=== PATIENT | female | born 1945 | race Caucasian/White ===

== ENCOUNTER 2020-06-28 13:44 | Inpatient (IN) | payer MEDICARE, MEDICAID, SELFPAY ==
[2020-06-28 13:45] VITALS: BP 123/47; PULSE 79; RESP 18; TEMP 35.4; O2SAT 100
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
--- NOTE | 2020-06-28 15:35 | CMSCP_ITS ---
- If Service Date Differs Date of service: 06/28/20 Time of Service: 15:36 Swingbed Plan of Care Plan of care: SWING BED PROGRAM ACTIVITIES/DISCHARGE PLAN OF CARE ACTIVITIES PLAN Date:06/28/20 Identified Need:Individual activities Intervention/Plan:Activity Cart, reading materials, television, phone and one support visitor. Rekie, music and pet therapy are not available at this time due to COVID precautions Initials [facility] DISCHARGE PLAN Date:06/28/20 Identified Need:IV abx for MSSA end date 07/09/20 PT/OT recent right AKA Return to [facility] Intervention/Plan: IV abx ordered PT/OT to eval, establish goals and plan Upon completion of abx return to [facility] Initials [facility]
--- NOTE | 2020-06-28 16:20 | CM.SBPSYCH ---
- If Service Date Differs Date of service: 06/28/20 Time of Service: 16:20 SB Psychosocial/Act.Assessment - Hospital Admission Admission Date: 06/28/20 Admission From:: [facility] [place] Diagnosis:: MSSA, R AKA - Swing Bed Admission Swing Bed Admit Date:: 06/28/20 Swing Bed Level of Care: Level 1/SNF - Social Supports PREVIOUS FUNCTIONAL STATUS/SOCIAL/FAMILY SUPPORTS:: Sunshine lives at [facility], she is , she has two daughters Yennifer, and Rachel that live local. - Prior to Admission Living Arrangements/Environment Prior to Admission:: Sunshine has been at [facility] since May, she does have an apartment however she states she is giving that up and does not plan to return to it. 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 Communication:: Able to articulate her needs. She does have hearing aids that are not with her will need to request them from her daughters. Sensory Systems: Hearing and sight deficit. Behavior:: affect flat, does smile occasionally, states she feels that she is just here and I am not living. Cm reviewed goals of care and palliative care consult which patient agrees to. - Medical History General Health:: fair - Admission Data Reason for Swing Bed Admission:: Recent R AKA, MSSA infection. IV abx until 07/09/20 unable to receive at prior level of care. Discharge Plan:: Sunshine will remain at [facility] for her IV abx. Completion date 07/09/20. She will plan to return to [facility] at the completion. She will have a palliaitve care consult while inpatient. Assessment: Sunshine is alert, she states she wants both of her daughters to be able visit like she had at [facility]. She states if they cant then she will have neither. Sunshine describes her life as not living she states she is afraid she will not ever be able to do the things she did in the past including play Bingo. She has four grandchildren that she is able to see via tablet and facetime. Sunshine is pleasant, engaged most of the time with periods of disengagement. Sunshine will have a palliative consult on , CM did contact the office no confirmed time. CM will need to contact family. [employer] Machinist: Alejandra Lopez Date Assessment was completed:: 06/28/20
[2020-06-28] MEDS: Normal Saline Flush 10 ML SYR ×2 (17:25→18:24)
[2020-06-28] MEDS: Acetaminophen 325 MG TAB 650 MG PO (17:26)
[2020-06-28] MEDS: Normal Saline 500 ML 30 ML IV (17:28)
[2020-06-28] MEDS: ceFAZolin 1 GM/50 ML BAG IVPB (17:28)
[2020-06-28] MEDS: Ibuprofen 400 MG TAB PO (18:23)
[2020-06-28] MEDS: Atorvastatin 40 MG TAB PO (19:34)
[2020-06-28] MEDS: Apixaban 5 MG TAB PO (19:35)
[2020-06-28] MEDS: Melatonin 3 MG TAB 6 MG PO (21:33)
[2020-06-28] MEDS: traZODone 50 MG TAB PO (21:33)
[2020-06-28] MEDS: dilTIAZem CD 120 MG CAPCR 240 MG PO (21:33)
[2020-06-28 21:38] VITALS: BP 124/76; PULSE 98; RESP 18; O2SAT 98
--- NOTE | 2020-06-29 | DI.RAD_ITS ---
EXAM: XR TOE LT GREAT CLINICAL HISTORY: lesion, ? osteo. TECHNIQUE: 2D digital imaging was performed. COMPARISON: No exams were available for comparison FINDINGS: Exam is limited by overlying gauze. No gross destructive bony lesion is seen of the great toe. The 2nd toe is partially visualized and there is a an intra-articular fracture at the base of the proxima l phalanx which is comminuted. No additional fractures are seen. No dislocation. IMPRESSION: Limited exam. Comminuted fracture at the base of the proximal phalanx of 2nd toe. DATA REPOSITORY: RADIATION DOSE DELIVERED:
[2020-06-29] MEDS: Acetaminophen 500 MG TAB 1000 MG PO ×2 (00:24→06:45)
[2020-06-29] MEDS: Ibuprofen 400 MG TAB PO ×3 (00:25→12:23)
[2020-06-29] MEDS: ceFAZolin 1 GM/50 ML BAG IVPB ×2 (02:11→09:57)
[2020-06-29 06:41] LABS: Abs Immature Grans 0.12 10^3/uL (0.0-0.06); Absolute Basophil Count 0.03 10^3/uL (0.0-0.2); Absolute Eosinophil Count 0.27 10^3/uL (0.0-0.7); Absolute Monocyte Count 0.54 10^3/uL (0.1-0.8); Absolute Neutrophil Count 5.22 10^3/uL (1.2-6.7); Basophils % 0.4; Eosinophils % 3.9; HCT 27.3 % (36.0-46.0); HGB 8.5 g/dL (11.2-15.7); Immature Grans % 1.7; Lymphocytes % 10.2; MCH 28.9 pg (27.0-33.0); MCHC 31.1 % (32.0-36.0); MCV 92.9 fL (80-95); MPV 8.5 fL (8.0-11.0); Monocytes % 7.8; Platelet Count 322 10^3/uL (130-400); RBC 2.94 10^6/uL (3.93-5.22); RDW 17.3 % (11.7-14.6); RDW-SD 57.3 fL; WBC 6.88 10^3/uL (4.4-10.8)
[2020-06-29] MEDS: Levothyroxine 25 MCG TAB PO (06:44)
[2020-06-29 06:56] LABS: Anisocytosis 2+; Basophilic Stippling Present; Hypochromasia 1+; Macrocytosis 1+; Microcytosis 1+; Polychromasia Present
[2020-06-29 06:57] LABS: AST 10 U/L (15-37); Albumin 2.5 g/dL (3.4-5.0); Alkaline Phosphatase 90 U/L (46-116); Anion Gap 9.6 mmol/L (3-11); BUN 34 mg/dL (7-18); Bilirubin, Total 0.3 mg/dL (0.2-1.0); C-Reactive Protein 5.82 mg/dL (0.0-0.3); CO2 28.4 mmol/L (21.0-32.0); CREATININE 1.11 mg/dL (0.55-1.02); Calcium 9.2 mg/dL (8.5-10.1); Chloride 100 mmol/L (98-107); Estimated GFR 47.79 (mL/min/1.73m2); Glucose 106 mg/dL (74-106); Potassium 3.3 mmol/L (3.5-5.1); Sodium 138 mmol/L (136-145); Total Protein 6.2 g/dL (6.4-8.2)
[2020-06-29 06:58] LABS: ALT < 6 U/L (14-59)
[2020-06-29 07:11] VITALS: BP 124/71; PULSE 74; RESP 17; TEMP 36; O2SAT 100
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
[2020-06-29] MEDS: Tiotropium Bromide-Respimat 10 PUFF INH 2 PUFF IH (07:55)
[2020-06-29] MEDS: Allopurinol 100 MG TAB PO (08:57)
[2020-06-29] MEDS: Beta-Carotene(A) w/C,E, & Minerals TAB PO (08:57)
[2020-06-29] MEDS: Clopidogrel 75 MG TAB PO (08:58)
[2020-06-29] MEDS: Apixaban 5 MG TAB PO ×2 (08:58→20:24)
[2020-06-29] MEDS: Torsemide 20 MG TAB 40 MG PO (08:58)
[2020-06-29] MEDS: Metoprolol CR 100 MG TABCR 200 MG PO (08:58)
[2020-06-29] MEDS: Pantoprazole 20 MG TABCR PO (08:58)
[2020-06-29] MEDS: Loratidine 10 MG TAB PO (08:58)
[2020-06-29] MEDS: DULoxetine 30 MG CAP 60 MG PO (08:58)
[2020-06-29] MEDS: Polyethylene Glycol 3350 17 GM PACKET PO (08:59)
[2020-06-29] MEDS: Normal Saline Flush 10 ML SYR ×2 (08:59→12:24)
[2020-06-29 09:00] VITALS: PULSE 74
[2020-06-29] MEDS: Digoxin 0.125 MG TAB 0.0625 MG PO (09:00)
[2020-06-29] MEDS: Fluticasone NASAL SPRAY 16 GM BTL NS (09:17)
--- NOTE | 2020-06-29 09:35 | IN_ITS ---
Date of service: 06/29/20 Time of Service: 09:35 PT Notes Visit Reasons: MSSA INFECTION Physical Therapy Inpatient Initial Evaluation Date: 06/29/2020 Referring Doctor: Beth Fulton NP PT Orders: PT CONSULT: Eval/treat Precautions: Fall. Standard. Activity as tolerated. Patient Profile/Admitting Diagnosis: Sunshine is a 75-year-old female with diagnoses of above-knee amputation of right LE on 06/19/2020 due to failed multiple att empts at revascularization, MSSA Bacteremia on IV Cefazolin until July 09, 2020 via PICC line, Congestive Heart Failure with 61% EF, Acute on Chronic Anemia, Type II Diabetes Mellitus, Peripheral Arterial Disease, and open wound on left great toe. Referral to skilled therapy services was made to address ongoing functional mobility limitations. PMHX: Medical History (Updated 06/29/20 @ 16:10 by Penny Calhoun MD) Abnormal auditory perception (Inactive 10/25/13) Abnormal auditory perception (Inactive 11/06/15) Acute on chronic anemia (Acute) Atrial fibrillation (Chronic) CHF (congestive heart failure) (Chronic) Depression (Chronic) Diabetes mellitus type 2 in nonobese (Acute) DNI (do not intubate) (Acute) DNR (do not resuscitate) (Acute) Goals of care, counseling/discussion (Acute) Hx-TIA (transient ischemic attack) (Acute) MSSA bacteremia (Acute) Obesity with body mass index 30 or greater (Inactive 10/25/13) Obstructive sleep apnea (adult) (pediatric) (Inactive 10/25/13) PAD (peripheral artery disease) (Acute) Palliative care patient (Acute) POLST (Physician Orders for Life-Sustaining Treatment) (Acute) Pulmonary edema (Resolved) Sensorineural hearing loss, bilateral (Resolved 11/06/15) Sensorineural hearing loss, bilateral (Inactive 10/11/13) Sensory hearing loss, bilateral (Inactive 10/25/13) Surgical History Above knee amputation of right lower extremity (Acute ~05/2020) Social History/Home Situation: Patient had been a resident of [facility] since October 2019. She was ambulatory with the use of a front wheeled walker. Equipment Owned/DME: FWW Subjective: Patient complains of significant amount of pain in her low back area with movement. Daughter states that her mother fell last year and has old compression fractures which have given her pain since. She reported phantom limb pain in the right leg twice during transfer activity. She states that she did not do much after her surgery at [facility]. Objective: General Observation: R AKA residual limb somewhat cylindrical in shape covered with Kerlix gauze. PICC line in right arm. Open area on the dorsum of the left great toe. Left equinovarus deformity. Abdominal panniculus. Mental Status: Alert and oriented x 4. Hears better in the L ear. Pain: 6-7/10 in low back area with movement ROM: Right Upper Extremity: Shoulder Flexion WFL. Shoulder abduction WFL. Elbow flexion WFL. Wrist flexion WFL. Opening and closing of hand WFL. Left Upper Extremity: Shoulder Flexion WFL. Shoulder abduction WFL. Elbow flexion WFL. Wrist flexion WFL. Opening and closing of hand WFL. Right Lower Extremity: Hip flexion WFL. Hip abduction WFL. Left Lower Extremity: Hip flexion WFL. Hip abduction WFL. Knee flexion WFL. Knee extension -15 degrees. Ankle dorsiflexion 20 degrees from fully plantarflexed position. Ankle myostatic plantarflexion contracture of about 45 degrees. Strength: Right Upper Extremity: Shoulder flexors 4-/5. Shoulder abductors 4-/5. Elbow flexors 4-/5. Elbow extensors 4-/5. Range Scientist strong. Left Upper Extremity: Shoulder flexors 4-/5. Shoulder abductors 4-/5. Elbow fle xors 4-/5. Elbow extensors 4-/5. Range Scientist strong. Right Lower Extremity: Hip flexors 4-/5. Hip abductors 4-/5. Knee flexors 4-/5. Left Lower Extremity: Hip flexors 4-/5. Hip abductors 4-/5. Knee flexors 4-/5. Knee extensors 3-/5. Ankle dorsiflexors /5. Ankle plantarflexors 5/5. Sensation: Intact as to pain and pressure on bilateral lower extremities. Bed Mobility/Transfers: Supine to sit moderate assist Sit to supine minimal assist of 2 Sit to stand maximal assist of 2 Stand to sit maximal assist of 2 Bed to chair maximal assist of 2, stand pivot transfer. Chair to bed maximal assist of 2, stand pivot transfer Gait: Non-ambulatory. L Residual limb length from R ASIS: 32 cm Balance: Static Sitting: Good Dynamic Sitting: Fair Static Standing: Poor Dynamic Standing: Poor Special Tests: Mobility Limitations Standardized Measure [facility] AM-PAC 6 clicks Basic Mobility Inpatient Short Form: Raw Score: 8 CMS Score: 87% deficit Informed Consent/Education: Patient instructed in purpose of PT consult and plan of care. Assessment: Sunshine demonstrates significant functional mobility decline, generalized weakness, ambulatory dysfunction, balance impairment, and activity tolerance resulting from admitting diagnoses. 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 Referral to skilled therapy services was made to address ongoing functional mobility limitations. Patient presents with clinical signs and symptoms consistent with current/admitting diagnoses that have resulted to mobility limitations, gait instability, generalized weakness, and impairment of motor control as demonstrated by the following impairment level findings: 1. Decreased strength to B UE/LE major muscle groups 2. Impaired sitting/standing balance 3. Impaired activity tolerance 4. Limitation of joint range of motion in left ankle and left knee Impairments are contributing to the following functional limitations: 1. Dependent bed mobility skills 2. Increased dependence with transfers 3. Inability to safely ambulate without assistive device and physical assistance 4. Increase completion time for mobility ADL performance 5. Increased fall risk 6. Inability to negotiate steps alone safely Patient is assessed as a 57541 high complexity based on the following: History: 75-year-old female with impairment level findings, functional limitations, and past medical history as indicated above Examination: Demonstrable impairment in strength, balance, and mobility level with underlying impairments and functional limitations as documented above Presentation:Evolving Decision Makin high complexity Goals: Goals X1 week 1. Supine-Sit minimal assist 2. Sit-Supine minimal assist 3. Sit-Stand minimal assist of 2 4. Stand-Sit minimal assist of 2 5. Bed-Chair minimal assist of 2 6. Chair-Bed mod assist of 2 7. Minimal assist of 2 for gait on level surface with use of least restrictive device for at least 300 feet without report of pain nor dyspnea 8. Minimal assist of 2 for stair negotiation while holding onto bilateral rails for at least 10 steps without report of pain nor dyspnea 9. Minimal assist of 2 with home exercise program 10. Good static and dynamic standing balance/tolerance Plan of Care/Treatment Plan: 1-2x/day, 7 days/week x 1 week. Plan of care has been reviewed with the PRESALES ENGINEER providing the service under Physical Therapy direction. Initiate Physical Therapy intervention for strengthening, bed mobility, transfers, gait, stairs, balance training, use of assistive device. DISCHARGE RECOMMENDATIONS: Patient will benefit from snf facility placement for continued skilled physical therapy services in order to progress mobility level, strength, and balance as well as to ensure preprosthetic training and R residual limb reshaping. TREATMENT CODE/TIME: 04463 x 25 minutes, 62750 x 25 minutes beginning at 9:35 AM. Thank you for the opportunity to participate in the care of this patient. Sandhya Holloway PT, DPT, CLT [facility] [place], [place]
--- NOTE | 2020-06-29 10:54 | OTIE_ITS ---
Occupational Therapy Notes Inpatient Occupational Therapy SWB 1 Evaluation Date: 06/29/20 Referring Doctor:Beth Fulton NP OT Orders: Non-Urgent Precautions: Fall, standard, FULL PATIENT PROFILE/ADMITTING DIAGNOSIS: Pt is a 75 year female who has transitioned to [facility] for [facility] bed 1 rehabilitative care for a dx of MSSA and (R) AKA, CHF, Chronic anemia, DM II, A-fib, PAD and a chief c/o infection and s/p amputation. Past Medical History- Medical History Abnormal auditory perception (Inactive 10/25/13) Abnormal auditory perception (Inactive 11/06/15) Acute on chronic anemia (Acute) Atrial fibrillation (Chronic) CHF (congestive heart failure) (Chronic) Diabetes mellitus type 2 in nonobese (Acute) MSSA bacteremia (Acute) Obesity with body mass index 30 or greater (Inactive 10/25/13) Obstructive sleep apnea (adult) (pediatric) (Inactive 10/25/13) PAD (peripheral artery disease) (Acute) Pulmonary edema (Resolved) Sensorineural hearing loss, bilateral (Resolved 11/06/15) Sensorineural hearing loss, bilateral (Inactive 10/11/13) Sensory hearing loss, bilateral (Inactive 10/25/13) Surgical History Above knee amputation of right lower extremity (Acute ~05/2020) Social History/Home Situation: Pt has been residing at [facility] since May. She states that she gets (A) with dressing, bathing and grooming. She performs her bathing sitting in a chair with max (A) set up and clean up. She has all DME mets at her facility. She uses a FWW for functional mobility as well as transfers prior to (R) AKA. She has two daughters. She does not feel that returning to her apartment in [place] is a realistic goal and states this to OT at start of session. Equipment owned/DME: Resides at [facility] since May all DME met at [facility] SUBJECTIVE: Pt was sitting in chair when OT arrived. She was agreeable to OT session and notes that she is in a lot of pain in her low back and extremely tired after working with PT. She states that her goals are not to live on her own and does not feel that this is going to happen. She would like to return to [facility]. Her personal goals for OT is to be able to complete her ADLs/IADLs in the sitting position as (I) as possible. OBJECTIVE: General Observation: Pleasant, able to answer questions appropriately, IV (R) UE, (R) AKA jagdish in place with bandage getting replaced d/t falling off with PT. Mental Status: A&Ox3 Pain: 7-8/10 pain in lower back ROM: RUE AROM WFL L UE AROM WFL STRENGTH: RUE 4/5 throughout globally LUE 4/5 throughout globally *Pt is (R) hand dominant. FUNCTIONAL MOBILITY/ADLS: Transfers with FWW prior to amputation. Has tried slide board twice and reports that this does not go well. BATHING Pt denies Bathing UE Required min (A) with washing hair and denies all other Bathing. Pt does have AROM required for bathing routine. Bathing LE Denied DRESSING Sitting in chair Dressing UE denies Dressing LE (I) able to don and doff (L) sock and shoe with increased performance time. GROOMING Sitting in chair (I) with brushing hair with min (A) behind head due to back pain. TOILETING NT pt reports that she is currently utilizing a bed pain EATING NT pt does have AROM required to bring hand to mouth. BALANCE: Static sitting Fair due to pain Dynamic Sitting Poor-fair Static Standing Poor per pt report Dynamic Standing Poor per pt report SPECIAL TESTS: Daily Activity Limitations Standardized Measure [facility] AM -PAC ?6 clicks? Daily Activity Inpatient Short Form: Raw score: 16 Standardized score: 35.96 CMS score:53.32% INFORMED CONSENT/EDUCATION: Pt instructed in purpose of OT Consult and plan of care. ASSESSMENT: Patient is a 75-year-old female referred to occupational therapy services with diagnosis of MSSA, (R) AKA and is admitted to [facility] for [facility] 1 level of care. Patient presents with clinical signs and symptoms consistent with dx, as demonstrated by the following impairment level findings: Pain in low back limiting static and dynamic functional mobility, decreased functional mobility required for ADLs, decreased functional acitivity tolerance, pain in (R) AKA wound site, decreased ability to perform her baseline function for ADL/IADL requirements. Impairments are contributing to the following functional limitations: Unable to perform standing ADLs at this time, decreased functional activity tolerance, decreased gross motor control of (L) LE, fatigue post 5 minutes of functional mobility, decreased standing tolerance, decreased LE dressing including pants. AMPAC score 16 Patient is assessed as a high 54769 complexity based on the following: History: See above Examination: see functional limitations as noted above Presentation: evolving Decision Making: AMPAC score 16 GOALS Goals x1 week 1. Transfers with FWW with Min (A) 2. Dressing sitting in chair (I) shirt, sock, shoe, Min (A) pants 3. Bathing sitting in chair with max (A) set/clean up (I) 4. Toileting on commode (I) 5. Eating (I) PLAN OF CARE/TREATMENT PLAN: 1x/day, 5 days/ week x 1week Initiate Occupational Therapy Services for bathing, dressing, grooming, toileting, eating, transfer training. DISCHARGE RECOMMENDATIONS Return to [facility] when medically cleared per MD. TREATMENT TIME/MINUTES/CODES 44244, 30 minutes (10:30) Yue Lala OTR/[facility]
[2020-06-29] MEDS: Insulin Aspart 300 UNITS/3 ML PEN SC (12:24)
--- NOTE | 2020-06-29 12:35 | PHACLINREV_ITS ---
Pharmacy Admission Review - Admission Clinical Review (Last Reviewed 06/29/20 @ 07:49 by Wayne Feliciano DPM) MSSA bacteremia (Acute) PAD (peripheral artery disease) (Acute) Diabetes mellitus type 2 in nonobese (Acute) Above knee amputation of right lower extremity (Acute ~05/2020) Acute on chronic anemia (Acute) No Known Allergies Allergy (Unverified 01/05/18 08:20) Height 5 ft 2 in Weight 68.4 kg - Renal Dosing Renal Dosing: BUN 34 mg/dL (7-18) H 06/29/20 06:05 Creatinine 1.11 mg/dL (0.55-1.02) H 06/29/20 06:05 Medications needing adjustments: Reviewed (CrCl ~34.1, current meds okay (watch cefazolin dose)) - Anticoagulation Anticoagulation: Hgb 8.5 g/dL (11.2-15.7) L 06/29/20 06:05 Hct 27.3 % (36.0-46.0) L 06/29/20 06:05 Plt Count 322 10^3/uL (130-400) 06/29/20 06:05 Creatinine 1.11 mg/dL (0.55-1.02) H 06/29/20 06:05 DVT Prohphylaxis: N/A Therapeutic Anticoagulation: Reviewed Medications: Apixaban - Opiate Usage Evaluate Pain Scale/Pains Meds: N/A - Relevant Labs Sodium 138 mmol/L (136-145) 06/29/20 06:05 Potassium 3.3 mmol/L (3.5-5.1) L 06/29/20 06:05 Chloride 100 mmol/L (98-107) 06/29/20 06:05 C-Reactive Protein 5.82 mg/dL (0.0-0.3) H 06/29/20 06:05 Electrolytes, C-Reactive P, ESR: Reviewed (CRP elevated at 5.82, K 3.3, Hgb decreased at 8.5) - DM Control DM Control: Glucose 106 mg/dL (74-106) 06/29/20 06:05 Finger Stick Blood Glucose 172 Finger Stick Blood Glucose 172 Finger Stick Blood Glucose 131 Finger Stick Blood Glucose 131 Insulin Dosing: Reviewed (Glucose was slightly elevated at 131, is currently on insulin aspart. Per MD her glucose has been well controlled on insulin aspart at [facility]) - Heart Failure/MO EF%, ELVA's, B-Blockers, Diuretics: Reviewed (Currently on torsemide and digoxin) - BP Control BP Control: Blood Pressure 124/71 If elevated: Reviewed (BP has been within normal range) - Qtc Review If Elevated: N/A (No EKG labs) - IV to PO Switch IV Medications: Reviewed (IV cefazolin) - Home Meds Home Med List reviewed: Reviewed Relevent Home Meds Not ordered & why?: Ocuvite with lutein - Current meds Current Medication Order Review: Reviewed (Watch cefazolin dose, recommended frequency for CrCl 11-34 is Q12H, she is currently on Q8H. MD aware) - Comments Comments/Follow Ups: Monitor K, CRP, Hgb (has hx of needing blood transfusions due to anemia), monitor kidney function (cefazolin, some drug interactions that can cause nephrotoxicity, if CrCl decreases below 30 watch for duloxetine as well (contraindicated if CrCL <30)), monitor bleeding due to multiple drug interactions that can increase bleed risk.
[2020-06-29] MEDS: Acetaminophen 325 MG TAB 650 MG PO (12:53)
--- NOTE | 2020-06-29 14:44 | CHAPLAIN ---
Sunshine is from [facility] and told me she arrived here from [facility]. She was interested in getting the on the tv working. I had trouble and asked Manager Switch to help out. I explained my role to Sunshine and offered support.
[2020-06-29] MEDS: Lidocaine 5% Patch 2 PATCH TP (15:05)
--- NOTE | 2020-06-29 15:31 | PTTR_ITS ---
Date of service: 06/29/20 Time of Service: 13:10 PT Notes Visit Reasons: MSSA INFECTION Inpatient Physical Therapy Treatment Note [facility] Date: 06/29/2020 SUBJECTIVE: My back hurts. OBJECTIVE: [] PAIN: c/o LBP as well as phantom pain in right LE. BED MOBILITY/TRANSFERS Rolling L/R: CGA Supine-sit: max A x2 Sit-supine: Max A x2 Sit-stand: Max A x3 Stand-sit: Max A x2 Chair-bed: Max A x3, pivot transfer GAIT Assistive Device: DRIVER WHEELCHAIR Weight bearing: WB L Assist:Max A x3 Distance: pivot xfer THEREX: performed a global LE/ UE strength and core stabilization, see flowsheet. ASSESSMENT: follows directions well. She is nervous about falling and tends to resist, however does well when instructed every step of the way. She has increased phantom pain with WBing. She tends to forget that her right leg amputated and not able to assist. Increased LBP with any mvmt/ transfers/ bed mobility, however does well if she engages her core before she moves. PLAN: will continue to progress her global strength and functional mobility following PT POC. TREATMENT CODE/TIME:30 min in pm, [id number], [id number].
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
--- NOTE | 2020-06-29 16:18 | DI.VRAD_ITS ---
PROCEDURE INFORMATION: Exam: XR Left Toe(s) Exam date and time: 06/29/2020 3:59 PM Age: 75 years old Clinical indication: Other: Lesion, osteo ? TECHNIQUE: Imaging protocol: XR Left toes. Views: Minimum 2 views. COMPARISON: No relevant prior studies available. FINDINGS: Bones/joints: Fracture at the base of the proximal phalanx of the 2nd digit with extension to the articular surface. The fracture is comminuted. Soft tissues: Soft tissue edema in the big toe. IMPRESSION: Soft tissue edema in the big toe. Fracture at the base of the proximal phalanx of the 2nd digit with extension to the articular surface. The fracture is comminuted. Dictated and Authenticated by: Lemuel Flores MD. Ordering:ANCELMO Campos MD
[2020-06-29] MEDS: Potassium Chloride 20 MEQ TABCR 40 MEQ PO (17:07)
[2020-06-29] MEDS: oxyCODONE 5 MG TAB PO (18:20)
[2020-06-29] MEDS: Normal Saline 500 ML 30 ML IV (18:20)
[2020-06-29] MEDS: ceFAZolin 2 GM/50 ML BAG IVPB (18:21)
--- NOTE | 2020-06-29 19:38 | DI.RAD_ITS ---
EXAM: XR PORTABLE CHEST AP POST LINE CLINICAL HISTORY: picc positioning TECHNIQUE: 2D digital imaging was performed. COMPARISON: No exams were available for comparison FINDINGS: The exam was performed is semi a erect position. PICC line is seen entering from the right arm. The tip projects in the superior vena cava. The heart is enlarged. There is calcification at the aorti c arch. There are fibrotic changes in the upper lobes. No focal area of consolidation or effusion i s seen. IMPRESSION: Appropriate positioning of PICC line. DATA REPOSITORY: RADIATION DOSE DELIVERED:
--- NOTE | 2020-06-29 19:51 | DI.VRAD_ITS ---
PROCEDURE INFORMATION: Exam: XR Chest, 1 View Exam date and time: 06/29/2020 7:39 PM Age: 75 years old Clinical indication: Device placement; Picc; Additional info: Picc not working, ? picc positioning TECHNIQUE: Imaging protocol: XR of the chest Views: 1 view. COMPARISON: No relevant prior studies available. FINDINGS: Tubes, catheters and devices: Right PICC line ends in the SVC. Lungs: Unremarkable. No consolidation. Pleural space: Unremarkable. No pleural effusion. No pneumothorax. Heart/Mediastinum: Unremarkable. No cardiomegaly. Vasculature: Atherosclerosis. Bones/joints: Unremarkable. IMPRESSION: Right PICC line ends in the SVC. Dictated and Authenticated by: Lemuel Flores MD. Ordering:[facility] Virginia De Dios MD
[2020-06-29] MEDS: Alteplase 2 MG VIAL IJ (20:16)
[2020-06-29] MEDS: Nystatin POWDER 15 GM JAR TP (20:20)
[2020-06-29] MEDS: Atorvastatin 40 MG TAB PO (20:24)
[2020-06-29] MEDS: Water,Injection,Sterile 10 ML VIAL (20:27)
[2020-06-29] MEDS: Normal Saline Flush 10 ML SYR IVP ×2 (20:29→23:08)
[2020-06-29 21:12] LABS: Magnesium 1.7 mg/dL (1.8-2.4)
[2020-06-29 21:55] VITALS: BP 148/80; PULSE 83; RESP 18; TEMP 36; O2SAT 98
[2020-06-29] MEDS: dilTIAZem CD 120 MG CAPCR 240 MG PO (21:57)
[2020-06-29] MEDS: traZODone 50 MG TAB PO (21:58)
[2020-06-29] MEDS: Melatonin 3 MG TAB 6 MG PO (21:58)
[2020-06-30] MEDS: Levothyroxine 25 MCG TAB PO (06:20)
[2020-06-30] MEDS: oxyCODONE 5 MG TAB PO ×2 (06:20→14:08)
[2020-06-30] MEDS: ceFAZolin 2 GM/50 ML BAG IVPB ×3 (06:21→22:00)
[2020-06-30 07:07] LABS: Anion Gap 9.3 mmol/L (3-11); BUN 36 mg/dL (7-18); CO2 28.7 mmol/L (21.0-32.0); Calcium 9.1 mg/dL (8.5-10.1); Chloride 101 mmol/L (98-107); Estimated GFR 48.29 (mL/min/1.73m2); Glucose 134 mg/dL (74-106); Potassium 3.9 mmol/L (3.5-5.1); Sodium 139 mmol/L (136-145)
[2020-06-30] MEDS: Tiotropium Bromide-Respimat 10 PUFF INH 2 PUFF IH (07:56)
--- NOTE | 2020-06-30 07:58 | PDOC.CMPRO ---
- If Service Date Differs Date of service: 06/30/20 Time of Service: 07:58 Care Management Progress Note S/O: Sunshine remains in swing bed level 1 she was delivered peñaloza today from her niece which made her smile. consulted on her left great toe which appears to have a wound and has made care recommendations. A:Sunshine is a 75 year old female who has been living at [facility], admitted to [facility], now with a right AKA, and here at [facility] for treatment for MSSA antibiotics, and PT, OT P:Sunshine will return to [facility] at the completion of her IV abx. She will continue to receive PT and OT throughout her stay. CM to coordinate discharge needs and return to [facility] when medically ready.
[2020-06-30] MEDS: Fluticasone NASAL SPRAY 16 GM BTL NS (08:16)
[2020-06-30] MEDS: Polyethylene Glycol 3350 17 GM PACKET PO (08:17)
[2020-06-30] MEDS: Nystatin POWDER 15 GM JAR TP ×2 (08:17→19:46)
[2020-06-30] MEDS: Insulin Aspart 300 UNITS/3 ML PEN SC ×2 (08:17→11:58)
[2020-06-30] MEDS: DULoxetine 30 MG CAP 60 MG PO (08:18)
[2020-06-30 08:19] VITALS: PULSE 70
[2020-06-30] MEDS: Clopidogrel 75 MG TAB PO (08:19)
[2020-06-30] MEDS: Torsemide 20 MG TAB 40 MG PO (08:19)
[2020-06-30] MEDS: Loratidine 10 MG TAB PO (08:19)
[2020-06-30] MEDS: Digoxin 0.125 MG TAB 0.0625 MG PO (08:19)
[2020-06-30] MEDS: Allopurinol 100 MG TAB PO (08:19)
[2020-06-30] MEDS: Pantoprazole 20 MG TABCR PO (08:19)
[2020-06-30] MEDS: Beta-Carotene(A) w/C,E, & Minerals TAB PO (08:19)
[2020-06-30] MEDS: Apixaban 5 MG TAB PO ×2 (08:19→19:37)
[2020-06-30] MEDS: Potassium Chloride 20 MEQ TABCR PO (08:19)
--- NOTE | 2020-06-30 08:19 | OT.INTREAT ---
Date of service: 06/30/20 Time of Service: 07:10 Occupational Therapy Notes Occupational Therapy Inpatient Treatment Note Date: 06/30/20 PRECAUTIONS: Fall, Standard, DNR/DNI SUBJECTIVE: Pt was lying in bed when OT arrived. She states that she is in pain this morning all over her body. She states that she slept ok last night and is tired this morning. OBJECTIVE: PAIN:8/10 pain all over body specifically in low back. FUNCTIONAL MOBILITY Rolling L/R: Min (A) BATHING: Lying in bed with max (A) set up and clean up Upper Body/Lower Body: (I) face, (B) UE, min (A) abdomen, max (A) (L) LE and foot, min (A) washing hair DRESSING: Lying in bed Upper Extremity: Min (A) don and doffing hospital gown Lower Extremity: (I) doffing sock and min (A) donning sock with min vc throughout GROOMING: Pt was lying in bed and was able to brush her hair with min (A) TOILETING: Incontinent, utilizes bed silva at times. ASSESSMENT/PLAN: Pt was in pain during session in her low back and in her leg. She was able to demonstrate good ROM and performance of ADLs/IADLs. She performed her ADLs in bed, goal is to get pt to edge of bed and then into chair for performance of her ADLs. She demonstrate good technique for rolling in bed with min (A). This functionally is helping her with functional (I) at this time. OT will continue to progress pt towards goals with ideal performance of ADLs in sitting position. TREATMENT CODES/TIME: [id number], 40 minutes (07:10) Yue Lala, OTR/L [facility]
[2020-06-30] MEDS: Metoprolol CR 100 MG TABCR 200 MG PO (08:21)
[2020-06-30] MEDS: diphenhydrAMINE 25 MG CAP PO (10:03)
[2020-06-30] MEDS: Ibuprofen 400 MG TAB PO ×2 (10:03→19:37)
[2020-06-30] MEDS: Acetaminophen 325 MG TAB 650 MG PO ×2 (10:03→19:35)
--- NOTE | 2020-06-30 11:36 | W.INDIABCONS ---
Date of service: 06/30/20 Time of Service: 11:36 Diabetes Inpatient Consult DESCRIPTION/ASSESSMENT: Met with Sunshine today for inpatient diabetes counseling. Sunshine is 75 year old female admitted from SNF with hypomagnesemia, TIA, open wound to left great toe. Sunshine reports that care home staff manages her DM2. Most recent A1C: 8.4% (03/16/20) indicates poor diabetes control 90 days prior to lab reading. Blood sugars mostly <130 mg/dl since admit. Diabetes is diet controlled per Sunshine. Following low sodium diet with adequate intake (>75%). Currently meeting 100% nutrient and fluid needs by mouth. May need medications to maintain blood sugar control for optimal healing of left great tow. INTERVENTION: Did not provide diabetes education as diabetes managed by care home at this time. CDM will provide education daily when menu selected to keep meals at <65g CHO/meal. PLAN: Check A1C and adjust meds as needed for optimal glucose control Change diet to CHO/Low sodium diet CDM will provide education daily on how to best follow meal plan for consistent carbohydrate intake. Time Spent in Nutritional Counseling and Treatment: 15 min spent face to face
[2020-06-30] MEDS: Lidocaine 5% Patch 2 PATCH TP (14:08)
[2020-06-30] MEDS: Normal Saline Flush 10 ML SYR IVP ×2 (14:09→19:39)
--- NOTE | 2020-06-30 15:23 | PT.INTREAT ---
Date of service: 06/30/20 Time of Service: 15:00 PT Notes Visit Reasons: MSSA INFECTION Inpatient Physical Therapy Treatment Note [facility] Date: 06/30/2020 SUBJECTIVE: Sunshine reports that she is hurting all over. She c/o LBP and right stump pain. OBJECTIVE: [] PAIN: reports 10/10 pain in LB BED MOBILITY/TRANSFERS Rolling L/R: Akil Supine-sit: max A x2 slide board transfer bed to chair with Max A x2. in am and Anne Marie chair to bed in pm. THEREX: global strengthening of U/LE as well as glutes and core. See flowhseet for details. ASSESSMENT: increased pain in low back with mvmt. Cues for core engagement helps. Significant weakness noted. I did note a slight improvement in sitting balance today at EOB. She continues to require 2 assists for safety. PLAN: continue following PT POC progressing her strengthening to her tolerance. TREATMENT CODE/TIME: 30 min in am and 20 min in pm. [id number], [id number].
[2020-06-30 17:05] VITALS: BP 148/67; PULSE 76; RESP 20; TEMP 36.7; O2SAT 100
[2020-06-30] MEDS: Atorvastatin 40 MG TAB PO (19:37)
[2020-06-30] MEDS: Melatonin 3 MG TAB 6 MG PO (21:57)
[2020-06-30] MEDS: dilTIAZem CD 120 MG CAPCR 240 MG PO (21:58)
[2020-06-30] MEDS: traZODone 50 MG TAB PO (22:00)
[2020-07-01] MEDS: Normal Saline Flush 10 ML SYR IVP ×2 (05:26→22:05)
[2020-07-01] MEDS: Levothyroxine 25 MCG TAB PO (05:26)
[2020-07-01] MEDS: ceFAZolin 2 GM/50 ML BAG IVPB ×3 (05:26→22:04)
[2020-07-01 07:42] VITALS: BP 120/74; PULSE 93; RESP 18; TEMP 36.7; O2SAT 99
[2020-07-01] MEDS: Tiotropium Bromide-Respimat 10 PUFF INH 2 PUFF IH (08:13)
[2020-07-01 08:49] VITALS: PULSE 84
[2020-07-01] MEDS: Pantoprazole 20 MG TABCR PO (08:49)
[2020-07-01] MEDS: Clopidogrel 75 MG TAB PO (08:49)
[2020-07-01] MEDS: Digoxin 0.125 MG TAB 0.0625 MG PO (08:49)
[2020-07-01] MEDS: Potassium Chloride 20 MEQ TABCR PO (08:49)
[2020-07-01] MEDS: Beta-Carotene(A) w/C,E, & Minerals TAB PO (08:49)
[2020-07-01] MEDS: Apixaban 5 MG TAB PO ×2 (08:49→19:45)
[2020-07-01] MEDS: Loratidine 10 MG TAB PO (08:49)
[2020-07-01] MEDS: Ibuprofen 400 MG TAB PO ×2 (08:51→19:43)
[2020-07-01] MEDS: Allopurinol 100 MG TAB PO (08:51)
[2020-07-01] MEDS: Torsemide 20 MG TAB 40 MG PO (08:51)
[2020-07-01] MEDS: Metoprolol CR 100 MG TABCR 200 MG PO (08:51)
[2020-07-01] MEDS: DULoxetine 30 MG CAP 60 MG PO (08:51)
[2020-07-01] MEDS: Fluticasone NASAL SPRAY 16 GM BTL NS (08:52)
[2020-07-01] MEDS: Nystatin POWDER 15 GM JAR TP ×2 (08:52→19:44)
[2020-07-01] MEDS: diphenhydrAMINE 25 MG CAP PO (08:52)
[2020-07-01] MEDS: Acetaminophen 325 MG TAB 650 MG PO ×2 (08:52→19:43)
[2020-07-01] MEDS: Polyethylene Glycol 3350 17 GM PACKET PO (08:52)
[2020-07-01] MEDS: oxyCODONE 5 MG TAB PO ×2 (10:56→22:05)
[2020-07-01] MEDS: Insulin Aspart 300 UNITS/3 ML PEN SC ×2 (12:15→17:00)
--- NOTE | 2020-07-01 12:44 | PT.INTREAT ---
Date of service: 07/01/20 Time of Service: 09:30 PT Notes Visit Reasons: MSSA INFECTION Inpatient Physical Therapy Treatment Note [facility] Date: 07/01/2020 PRECAUTIONS:Fall, standard, activities as tolerated SUBJECTIVE: Frustrated with back pain and decreased function. OBJECTIVE: PAIN: Complained of back being very uncomfortable today. A little better with repositioning in recliners. BED MOBILITY/TRANSFERS Up in recliner with Anne Marie lift with nursing staff. THEREX: Performed bed exercises including ankle pumps, SLRs, SAQs, supine hip flexion and hip abd/ adduction with left LE for 10 to 20 reps each, see flow sheet for details.. UE shoulder horizontal abd/adduction, shoulder flexion to 90 degrees and rows for 10 reps each. Also, performed attempted trapeze pull ups x 8 minutes, but these were very weak. Worked on isometric bracing with each of these. Encouraging patient to utilize core stability with each activity. Attempted to try to work sitting balance while in chair but patient indicated her back was really bothering her today. Had to utilize pillow to proper up trunk on the right to avoid excessive leaning to the right while in recliner. ASSESSMENT: Tolerated ther exercises fair, performing increased reps today. Difficulty with seated balance activity due to back pain. PLAN: Continue to encourage mobility and hope to work on sitting balance more tomorrow. TREATMENT CODE/TIME: [id number], 9:30 to 10:00
[2020-07-01] MEDS: Lidocaine 5% Patch 2 PATCH TP (14:45)
[2020-07-01 15:57] VITALS: BP 147/78; PULSE 90; RESP 18; TEMP 36.8; O2SAT 100
[2020-07-01 19:00] VITALS: BP 129/75; PULSE 93; RESP 18; TEMP 35.7; O2SAT 100
[2020-07-01] MEDS: Atorvastatin 40 MG TAB PO (19:45)
[2020-07-01] MEDS: Melatonin 3 MG TAB 6 MG PO (22:04)
[2020-07-01] MEDS: traZODone 50 MG TAB PO (22:05)
[2020-07-01] MEDS: dilTIAZem CD 120 MG CAPCR 240 MG PO (22:05)
[2020-07-01] MEDS: Normal Saline 500 ML 30 ML IV (22:06)
[2020-07-02] MEDS: ceFAZolin 2 GM/50 ML BAG IVPB ×3 (06:24→21:54)
[2020-07-02] MEDS: Normal Saline Flush 10 ML SYR IVP ×2 (06:24→21:55)
[2020-07-02] MEDS: Levothyroxine 25 MCG TAB PO (06:25)
[2020-07-02] MEDS: Tiotropium Bromide-Respimat 10 PUFF INH 2 PUFF IH (07:42)
[2020-07-02 08:02] VITALS: BP 128/71; PULSE 70; RESP 16; TEMP 35.4; O2SAT 99
[2020-07-02] MEDS: Metoprolol CR 100 MG TABCR 200 MG PO (08:29)
[2020-07-02] MEDS: diphenhydrAMINE 25 MG CAP PO ×3 (08:29→22:35)
[2020-07-02] MEDS: DULoxetine 30 MG CAP 60 MG PO (08:29)
[2020-07-02] MEDS: Digoxin 0.125 MG TAB 0.0625 MG PO (08:30)
[2020-07-02] MEDS: Pantoprazole 20 MG TABCR PO (08:30)
[2020-07-02] MEDS: Apixaban 5 MG TAB PO ×2 (08:30→19:52)
[2020-07-02] MEDS: Clopidogrel 75 MG TAB PO (08:30)
[2020-07-02] MEDS: Allopurinol 100 MG TAB PO (08:30)
[2020-07-02] MEDS: Torsemide 20 MG TAB 40 MG PO (08:30)
[2020-07-02] MEDS: Loratidine 10 MG TAB PO (08:30)
[2020-07-02] MEDS: Beta-Carotene(A) w/C,E, & Minerals TAB PO (08:31)
[2020-07-02] MEDS: Potassium Chloride 20 MEQ TABCR PO (08:31)
[2020-07-02] MEDS: Fluticasone NASAL SPRAY 16 GM BTL NS (08:31)
[2020-07-02] MEDS: Nystatin POWDER 15 GM JAR TP ×2 (08:31→19:55)
[2020-07-02] MEDS: Polyethylene Glycol 3350 17 GM PACKET PO (08:32)
[2020-07-02] MEDS: Insulin Aspart 300 UNITS/3 ML PEN SC ×2 (08:33→12:23)
--- NOTE | 2020-07-02 08:35 | RESPIRATORY ---
Patient was asked about the TAMICA history in which is in her medical chart. Patient stated she used to have a machine but not longer uses one for a few years now.
[2020-07-02] MEDS: Acetaminophen 325 MG TAB 650 MG PO (09:48)
[2020-07-02] MEDS: Ibuprofen 400 MG TAB PO (09:51)
[2020-07-02] MEDS: oxyCODONE 5 MG TAB PO ×2 (10:35→21:55)
--- NOTE | 2020-07-02 10:36 | PT.INTREAT ---
Date of service: 07/02/20 Time of Service: 09:40 PT Notes Visit Reasons: MSSA INFECTION Inpatient Physical Therapy Treatment Note [facility] Date: 07/02/2020 PRECAUTIONS:Fall, standard, Activity as tolerated SUBJECTIVE: Stated she is continuing to experience a great deal of back pain. OBJECTIVE: PAIN: Back pain of 6 out of 10, meds help a little BED MOBILITY/TRANSFERS Rolling L/R: Assist of one Mod assist with sitting balance without support behind back. Patient finds this very uncomfortable due to back pain. Hoyered to recliner with myself and nursing staff. THEREX: Performed ankle pumps, SAQs, supine hip flexion, supine abd/adduction with left LE, bilateral UE shoulder flexion to 90 degrees, shoulder horizontal abd/adduction and rows/ elbow flexion extension with left only due to IV in right elbow crease. 1# dumbbell brought to patient's room to use with UE strengthening. ASSESSMENT: Tolerated today's PT session fair, but difficulty with seated balance activities due to back pain complaints. PLAN: Continue with current POC advancing activities as able to tolerate for improved ADL function. TREATMENT CODE/TIME: [id number], [id number], 9:40 to 10:05 and 10:35 to 10:10:40
[2020-07-02] MEDS: Lidocaine 5% Patch 2 PATCH TP (13:09)
--- NOTE | 2020-07-02 13:44 | CMPROGNOTE_ITS ---
- If Service Date Differs Date of service: 07/02/20 Time of Service: 13:45 Care Management Progress Note S/O: Sunshine remains in swing bed level 1. CM met with her at length r/t current stay including movement and participation with PT. CM reviewed concerns including risk for skin breakdown. Sunshine states pain is the reason she does not move well, she reports her back and amputation site hurt and worse over the last few days. She is concerned about her skin and states she does not want a pressur e sore to develop. CM reviewed pain management plan with the nurse and used the white board to request pain medication to be offered. CM will review with provider as well. She may benefit from scheduled pain management while she is healing. CM reviewed allergy with patient she states she is allergic to ativan and lidocaine both were added to her allergy list. A:Sunshine is a 75 year old female who has been living at [facility], admitted to [facility], now with a right AKA, and here at [facility] for treatment for MSSA antibiotics, and PT, OT P:Sunshine will return to [facility] at the completion of her IV abx. She will continue to receive PT and OT throughout her stay. CM to coordinate discharge needs and return to [facility] when medically ready.
[2020-07-02] MEDS: Atorvastatin 40 MG TAB PO (19:51)
[2020-07-02] MEDS: traZODone 50 MG TAB PO (21:54)
[2020-07-02] MEDS: Melatonin 3 MG TAB 6 MG PO (21:54)
[2020-07-02] MEDS: Mirtazapine 15 MG TAB PO (21:55)
[2020-07-02] MEDS: dilTIAZem CD 120 MG CAPCR 240 MG PO (21:55)
[2020-07-03] MEDS: Levothyroxine 25 MCG TAB PO (05:30)
[2020-07-03] MEDS: ceFAZolin 2 GM/50 ML BAG IVPB ×3 (05:31→21:42)
[2020-07-03] MEDS: Normal Saline 500 ML 30 ML IV (05:31)
[2020-07-03 06:42] LABS: Abs Immature Grans 0.07 10^3/uL (0.0-0.06); Absolute Basophil Count 0.02 10^3/uL (0.0-0.2); Absolute Eosinophil Count 0.29 10^3/uL (0.0-0.7); Absolute Lymphocyte Count 0.68 10^3/uL (1.2-3.4); Absolute Monocyte Count 0.56 10^3/uL (0.1-0.8); Absolute Neutrophil Count 3.95 10^3/uL (1.2-6.7); Basophils % 0.4; Eosinophils % 5.2; HCT 25.7 % (36.0-46.0); HGB 8.1 g/dL (11.2-15.7); Immature Grans % 1.3; Lymphocytes % 12.2; MCH 29.7 pg (27.0-33.0); MCHC 31.5 % (32.0-36.0); MCV 94.1 fL (80-95); MPV 8.4 fL (8.0-11.0); Monocytes % 10.1; Neutrophils % 70.8; Platelet Count 326 10^3/uL (130-400); RBC 2.73 10^6/uL (3.93-5.22); RDW 17.7 % (11.7-14.6); RDW-SD 59.8 fL; WBC 5.57 10^3/uL (4.4-10.8)
[2020-07-03 07:07] LABS: AST 11 U/L (15-37); Albumin 2.5 g/dL (3.4-5.0); Alkaline Phosphatase 94 U/L (46-116); Anion Gap 7.8 mmol/L (3-11); BUN 35 mg/dL (7-18); Bilirubin, Total 0.2 mg/dL (0.2-1.0); C-Reactive Protein 6.38 mg/dL (0.0-0.3); CO2 30.2 mmol/L (21.0-32.0); CREATININE 1.21 mg/dL (0.55-1.02); Calcium 9.1 mg/dL (8.5-10.1); Chloride 101 mmol/L (98-107); Estimated GFR 43.26 (mL/min/1.73m2); Glucose 118 mg/dL (74-106); Potassium 3.6 mmol/L (3.5-5.1); Sodium 139 mmol/L (136-145); TSH 4.53 uIU/mL (0.36-3.74); Total Protein 6.1 g/dL (6.4-8.2)
[2020-07-03 07:10] LABS: ALT < 6 U/L (14-59)
[2020-07-03 07:20] LABS: Vitamin D 25 Total 11.7 ng/ml (30-100)
[2020-07-03 07:30] VITALS: BP 123/62; PULSE 82; RESP 16; TEMP 36.2; O2SAT 98
[2020-07-03] MEDS: Tiotropium Bromide-Respimat 10 PUFF INH 2 PUFF IH (07:52)
[2020-07-03] MEDS: Acetaminophen 325 MG TAB 650 MG PO (07:54)
[2020-07-03] MEDS: Pantoprazole 20 MG TABCR PO (07:55)
[2020-07-03] MEDS: diphenhydrAMINE 25 MG CAP PO (07:55)
[2020-07-03] MEDS: Polyethylene Glycol 3350 17 GM PACKET PO (08:05)
[2020-07-03] MEDS: Nystatin POWDER 15 GM JAR TP ×2 (08:05→20:29)
[2020-07-03] MEDS: Fluticasone NASAL SPRAY 16 GM BTL NS (08:06)
[2020-07-03] MEDS: Digoxin 0.125 MG TAB 0.0625 MG PO (08:06)
[2020-07-03] MEDS: DULoxetine 30 MG CAP 60 MG PO (08:06)
[2020-07-03] MEDS: Potassium Chloride 20 MEQ TABCR PO (08:07)
[2020-07-03] MEDS: Torsemide 20 MG TAB 40 MG PO (08:07)
[2020-07-03] MEDS: Metoprolol CR 100 MG TABCR 200 MG PO (08:07)
[2020-07-03] MEDS: Loratidine 10 MG TAB PO (08:07)
[2020-07-03] MEDS: Apixaban 5 MG TAB PO ×2 (08:07→20:29)
[2020-07-03] MEDS: Allopurinol 100 MG TAB PO (08:07)
[2020-07-03] MEDS: Beta-Carotene(A) w/C,E, & Minerals TAB PO (08:07)
[2020-07-03] MEDS: Clopidogrel 75 MG TAB PO (08:08)
[2020-07-03] MEDS: oxyCODONE 5 MG TAB PO (08:37)
--- NOTE | 2020-07-03 08:38 | W.PM.PROGNOT ---
Date of Service Date of service: 07/03/20 Time of Service: 08:38 Subjective Subjective Patient reports: no new complaints Interval history since last seen: Spoke with Dr. Feliciano regarding broken digit, this is not a concern, she has neuralgia and it is not painful, this will not inhibit her balance or ability to ambulate, however it might be difficult for her to ambulate with her prosthetic due to balance and deconditioning. Objective Objective Clinical Data: Abnormal lab results 07/03/20 07/03/20 07/03/20 Range/Units 06:25 06:25 06:25 RBC 2.73 L (3.93-5.22) 10^6/uL Hgb 8.1 L (11.2-15.7) g/dL Hct 25.7 L (36.0-46.0) % MCHC 31.5 L (32.0-36.0) % RDW 17.7 H (11.7-14.6) % Absolute Lymphocytes 0.68 L (1.2-3.4) 10^3/uL BUN 35 H (7-18) mg/dL Creatinine 1.21 H (0.55-1.02) mg/dL Glucose 118 H (74-106) mg/dL AST 11 L (15-37) U/L ALT < 6 L (14-59) U/L C-Reactive Protein 6.38 H (0.0-0.3) mg/dL Total Protein 6.1 L (6.4-8.2) g/dL Albumin 2.5 L (3.4-5.0) g/dL 25-OH Vitamin D Total 11.7 L (30-100) ng/ml TSH 4.53 H (0.36-3.74) uIU/mL Vital Signs Temperature 36.2 C L 07/03/20 07:30 Temperature Source Tympanic 07/03/20 07:30 Pulse 82 07/03/20 07:30 Pulse Rhythm Regular 07/03/20 08:26 Respiratory Rate 16 07/03/20 07:30 Respiratory Effort Non-Labored 07/03/20 08:26 Respiratory Depth Normal 07/03/20 08:26 Respiratory Pattern Normal 07/03/20 08:26 Blood Pressure 123/62 07/03/20 07:30 Pulse Oximetry 98 07/03/20 07:30 Oxygen Delivery Method Room Air 07/03/20 07:30 Oxygen Flow Rate 0 07/03/20 07:30 Pain Level 6 07/03/20 08:37 Comment 07/01/20 19:00 Intake & Output 07/02/20 07/02/20 07/03/20 11:59 23:59 11:59 Intake Total 250 / 1370 1120 / 1370 250 / 250 Balance 250 / 1370 1120 / 1370 250 / 250 Weight 68.1 kg 69.4 kg Intake: IV 50 / 690 640 / 690 Oral 200 / 680 480 / 680 250 / 250 Other: Urine Color Yellow Urine Appearance Clear Clear Clear Urine Odor Normal Voiding Methods Diaper Diaper Diaper Incontinent Incontinent Incontinent Laboratory Results WBC 5.57 10^3/uL (4.4-10.8) 07/03/20 06:25 RBC 2.73 10^6/uL (3.93-5.22) L 07/03/20 06:25 Hgb 8.1 g/dL (11.2-15.7) L 07/03/20 06:25 Hct 25.7 % (36.0-46.0) L 07/03/20 06:25 MCV 94.1 fL (80-95) 07/03/20 06:25 MCH 29.7 pg (27.0-33.0) 07/03/20 06:25 MCHC 31.5 % (32.0-36.0) L 07/03/20 06:25 RDW 17.7 % (11.7-14.6) H 07/03/20 06:25 Plt Count 326 10^3/uL (130-400) 07/03/20 06:25 MPV 8.4 fL (8.0-11.0) 07/03/20 06:25 Immature Gran % 1.3 07/03/20 06:25 Neutrophils % 70.8 07/03/20 06:25 Lymphocytes % 12.2 07/03/20 06:25 Monocytes % 10.1 07/03/20 06:25 Eosinophils % 5.2 07/03/20 06:25 Basophils % 0.4 07/03/20 06:25 Absolute Neutrophils 3.95 10^3/uL (1.2-6.7) 07/03/20 06:25 Absolute Lymphocytes 0.68 10^3/uL (1.2-3.4) L 07/03/20 06:25 Absolute Monocytes 0.56 10^3/uL (0.1-0.8) 07/03/20 06:25 Absolute Eosinophils 0.29 10^3/uL (0.0-0.7) 07/03/20 06:25 Absolute Basophils 0.02 10^3/uL (0.0-0.2) 07/03/20 06:25 RBC Morphology See below 06/29/20 06:05 Polychromasia Present 06/29/20 06:05 Hypochromasia 1+ 06/29/20 06:05 Basophilic Stippling Present 06/29/20 06:05 Anisocytosis 2+ 06/29/20 06:05 Microcytosis 1+ 06/29/20 06:05 Macrocytosis 1+ 06/29/20 06:05 Sodium 139 mmol/L (136-145) 07/03/20 06:25 Potassium 3.6 mmol/L (3.5-5.1) 07/03/20 06:25 Chloride 101 mmol/L (98-107) 07/03/20 06:25 Carbon Dioxide 30.2 mmol/L (21.0-32.0) 07/03/20 06:25 Anion Gap 7.8 mmol/L (3-11) 07/03/20 06:25 BUN 35 mg/dL (7-18) H 07/03/20 06:25 Creatinine 1.21 mg/dL (0.55-1.02) H 07/03/20 06:25 Estimated GFR/1.73 m2 43.26 (mL/min/1.73m2) 07/03/20 06:25 Glucose 118 mg/dL (74-106) H 07/03/20 06:25 Calcium 9.1 mg/dL (8.5-10.1) 07/03/20 06:25 Magnesium Cancelled 06/29/20 16:00 Total Bilirubin 0.2 mg/dL (0.2-1.0) 07/03/20 06:25 AST 11 U/L (15-37) L 07/03/20 06:25 ALT < 6 U/L (14-59) L 07/03/20 06:25 Alkaline Phosphatase 94 U/L (46-116) 07/03/20 06:25 C-Reactive Protein 6.38 mg/dL (0.0-0.3) H 07/03/20 06:25 Total Protein 6.1 g/dL (6.4-8.2) L 07/03/20 06:25 Albumin 2.5 g/dL (3.4-5.0) L 07/03/20 06:25 25-OH Vitamin D Total 11.7 ng/ml (30-100) L 07/03/20 06:25 TSH 4.53 uIU/mL (0.36-3.74) H 07/03/20 06:25
[2020-07-03] MEDS: buPROPion 75 MG TAB PO ×2 (09:19→20:29)
--- NOTE | 2020-07-03 09:19 | OTTR_ITS ---
Date of service: 07/03/20 Time of Service: 08:55 Occupational Therapy Notes Occupational Therapy Inpatient Treatment Note Date: 07/03/20 PRECAUTIONS: Fall, Standard, DNR/DNI SUBJECTIVE: Pt states that she is in a great deal of pain. She reports that her back is hurting and she is not able to concentrate or eat. She is agreeable to OT session and notes that she would like to get her pain under better control. She was sitting in the chair when OT arrived. OBJECTIVE: PAIN: 10/10 pain in low back. BATHING: Sitting in chair with max (A) set up/clean up Upper Body: (I) washing face, mod (A) (B) UE, max (A) hair Lower Body: max (A) (L) LE DRESSING: Upper Extremity: Max (A) don and doffing hospital gown Lower Extremity: Max (A) don and doffing sock GROOMING: Min (A) brushing hair TOILETING: Incontinent with disposable underwear EATING: (I) ASSESSMENT/PLAN: Pt is in a great deal of pain rating a 10/10 at rest. This is being worked on per nursing and [employer] ESTIMATOR. She is receptive to education/training but is limited in her functional performance due to her pain. She is able to perform her bathing routine with (A). She states that she cannot take the pain in her back, and is unable to find a good position. TREATMENT CODES/TIME: [id number], 25 minutes (08:55) Yue Laal, OTR/L [facility]
[2020-07-03 09:29] LABS: FREE T4 1.01 ng/dL (0.76-1.46)
[2020-07-03] MEDS: Gabapentin 300 MG CAP PO ×2 (09:46→20:29)
[2020-07-03] MEDS: Ergocalciferol 50000 UNITS CAP PO (09:47)
--- NOTE | 2020-07-03 09:57 | PDOC.CMPRO ---
Care Management Progress Note Sunshine will return to [facility] at the completion of her IV ABX. She continues to work with PT, OT, and diabetic education at this time. She also has an active podiatry consult and met with Palliative Care as well. CM to coordinate discharge needs and return to [facility] when medically ready. Per MD: Dr. Calhoun met with: Sunshine and her daughter, Yennifer. Sunshine has not been able to live at home in her independent living apartment since October. Over the past 7 months, she spent 4 mos at [facility] and 3 mos at [facility]. She's been back and forth between [facility] and [facility]. She's frustrated with having to reset her goals so many times. Initially, her goal was to get home for [place]. 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 She is now at [facility] to complete another course of antibiotics. Vascuar surgery at [facility] is worried that the same problem is starting on her left leg. She and her daughter are worried, too.
[2020-07-03] MEDS: traMADol 50 MG TAB PO (10:52)
--- NOTE | 2020-07-03 11:00 | PT.INTREAT ---
Date of service: 07/03/20 PT Notes Visit Reasons: MSSA INFECTION Sunshine was agreeable to a session of right AKA residual limb wrapping this morning. JESSICA Wells was assisting and nurse Alexy was present in the room to watch the process. Patient received R AKA residual limb wrapping using one 6-inch wide ELVA wrap and two 4-inch wide ELVA wraps. A tubigrip was then placed to reinforce wrapping and add protection to residual limb. Education about the benefits of said wrapping in preventing limb swelling, minimizing pain, and shaping the limb in preparation for prosthesis use was done with patient as well. Thank you very much for the opportunity to participate in the care of this patient. Sandhya Holloway PT, DPT, CLT [facility] [place], [place]
[2020-07-03] MEDS: Insulin Aspart 300 UNITS/3 ML PEN SC ×2 (11:52→17:38)
--- NOTE | 2020-07-03 14:19 | PT.INTREAT ---
Date of service: 07/03/20 Time of Service: 14:00 PT Notes Visit Reasons: MSSA INFECTION Inpatient Physical Therapy Treatment Note [facility] Date: 07/03/2020 SUBJECTIVE: Sunshine continues to c/o increased LBP. I can't do anything because I hurt too much. OBJECTIVE: [] PAIN: Back pain. BED MOBILITY/TRANSFERS Rolling L/R: min A Bed-Chair: Anne Marie lift and 2 assists Chair-bed: anne marie and 2 assists I also assisted PT in wraping her AKA using aba wrap. Assisting Sunshine to roll, as well as lifting stump. THEREX: performed a global LE strength and stabilization routine. See flowsheet for specific ex details. I turned Sunshine on her left side and placed aqua K pack at back. ASSESSMENT: Sunshine trys to put in effort with her exercises, however her pain is out of control. Nurse received new orders for different pain meds, unfortunately this made Sunshine sleepy. She tried to participate in PT this pm, but kept falling asleep. She is most comfortable in bed. PLAN: continue progressing to tolerance. Would like to work on sitting balance activities tomorrow, if she is feeling better. TREATMENT CODE/TIME: 45 min in am and 15 min in pm. [id number], [id number].
[2020-07-03] MEDS: Diclofenac 1% Gel 100 GM TUBE TP ×2 (17:39→20:29)
[2020-07-03 20:23] VITALS: BP 101/59; PULSE 80; RESP 18; TEMP 36.9; O2SAT 95
[2020-07-03] MEDS: Atorvastatin 40 MG TAB PO (20:29)
[2020-07-03] MEDS: Melatonin 3 MG TAB 6 MG PO (21:41)
[2020-07-03] MEDS: Normal Saline Flush 10 ML SYR IVP ×2 (21:42→22:36)
[2020-07-03] MEDS: dilTIAZem CD 120 MG CAPCR 240 MG PO (21:42)
[2020-07-03] MEDS: traZODone 50 MG TAB PO (21:42)
[2020-07-04] MEDS: Normal Saline Flush 10 ML SYR IVP ×2 (05:56→21:33)
[2020-07-04] MEDS: Levothyroxine 25 MCG TAB PO (05:56)
[2020-07-04] MEDS: ceFAZolin 2 GM/50 ML BAG IVPB ×3 (05:56→21:34)
[2020-07-04] MEDS: Acetaminophen 325 MG TAB 650 MG PO ×2 (06:26→13:37)
[2020-07-04] MEDS: traMADol 50 MG TAB PO (07:30)
[2020-07-04] MEDS: Gabapentin 300 MG CAP PO ×2 (07:30→20:37)
[2020-07-04 07:34] VITALS: BP 123/75; PULSE 75; RESP 16; TEMP 35.7; O2SAT 99
[2020-07-04] MEDS: Tiotropium Bromide-Respimat 10 PUFF INH 2 PUFF IH (07:59)
--- NOTE | 2020-07-04 08:26 | OT.INTREAT ---
Date of service: 07/04/20 Time of Service: 07:20 Occupational Therapy Notes Occupational Therapy Inpatient Treatment Note Date: 07/04/20 PRECAUTIONS: Fall, Standard, DNR/DNI SUBJECTIVE: Pt states that she is in a 10/10 pain in her back and in the lower portion of her (R) leg which is due to phantom limb pain. She is feeling shooting pains throughout her (R) leg and is unable to perform any functional movements of her LEs at this time due to her discomfort. Pt states that she is agreeable to OT session and feels that today will be a limited day. OBJECTIVE: PAIN:10/10 pain in low back and (R) LE BATHING: Lying in bed with max (A) set up and clean up Upper Body: (I) face, (B) UE, min (A) underarms, min (A) abdomen Lower Body: Max (A) (L) LE DRESSING: lying in bed Upper Extremity: Max (A) don and doffing hospital gown due to pain Lower Extremity: max (A) don and doffing (L) sock ASSESSMENT/PLAN: Pt is limited by pain and phantom limb discomfort. She has a 10/10 pain in her (R) LE and into her low back. She was receptive and attempted to be an active participant in todays session but pain was limiting to her. TREATMENT CODES/TIME: [id number], 25 minutes (07:20) Yue Lala, OTR/L [facility]
[2020-07-04] MEDS: Fluticasone NASAL SPRAY 16 GM BTL NS (08:58)
[2020-07-04] MEDS: Polyethylene Glycol 3350 17 GM PACKET PO (09:00)
[2020-07-04] MEDS: Diclofenac 1% Gel 100 GM TUBE TP ×4 (09:02→20:41)
[2020-07-04] MEDS: Insulin Aspart 300 UNITS/3 ML PEN SC ×3 (09:02→17:03)
[2020-07-04] MEDS: Nystatin POWDER 15 GM JAR TP ×2 (09:02→20:42)
[2020-07-04] MEDS: Torsemide 20 MG TAB 40 MG PO (09:03)
[2020-07-04] MEDS: Metoprolol CR 100 MG TABCR 200 MG PO (09:03)
[2020-07-04 09:04] VITALS: PULSE 75
[2020-07-04] MEDS: Potassium Chloride 20 MEQ TABCR PO (09:04)
[2020-07-04] MEDS: Clopidogrel 75 MG TAB PO (09:04)
[2020-07-04] MEDS: Beta-Carotene(A) w/C,E, & Minerals TAB PO (09:04)
[2020-07-04] MEDS: Digoxin 0.125 MG TAB 0.0625 MG PO (09:04)
[2020-07-04] MEDS: Loratidine 10 MG TAB PO (09:04)
[2020-07-04] MEDS: Allopurinol 100 MG TAB PO (09:04)
[2020-07-04] MEDS: Apixaban 5 MG TAB PO ×2 (09:05→20:38)
[2020-07-04] MEDS: Pantoprazole 20 MG TABCR PO (09:05)
[2020-07-04] MEDS: DULoxetine 30 MG CAP 60 MG PO (09:22)
[2020-07-04] MEDS: buPROPion 75 MG TAB PO (09:22)
--- NOTE | 2020-07-04 10:32 | PTTR_ITS ---
Date of service: 07/04/20 Time of Service: 10:32 PT Notes Visit Reasons: MSSA INFECTION Inpatient Physical Therapy Treatment Note [facility] Date: 07/04/2020 PRECAUTIONS: Fall SUBJECTIVE: Sunshine states that she has significant back pain this morning, but is willing to participate in PT. OBJECTIVE: Patient declines transfer from [id number], due to pain. PAIN: Patient c/o back pain BED MOBILITY/TRANSFERS: Declined in a.m.; attempted slide-board transfer with assist of 2. Patient required Max A for set up. Patient was unable to perform transfer due to decreased UE strength and increased LBP. Rolling L/R: Min A GAIT: Unable THEREX: Patient completed a LE strengthening and resisted UE strengthening program, in a long-sitting position, as per flow sheet. She was able to tolera te a progression in her ther ex program today, tolerating an increase in repetitions, as noted on flow sheet. ASSESSMENT: Patient tolerated session well without c/o increased back pain with ther ex. He was able to tolerate a progression in ther ex program. PLAN: Continue with PT's POC TREATMENT CODE/TIME: Session 1: 15 minutes; [id number] Session 2: 25 minutes; [id number], [id number]
--- NOTE | 2020-07-04 10:55 | W.PM.PROGNOT ---
Date of Service Date of service: 07/04/20 Time of Service: 10:55 Assessment and Plan Assessment and plan (1) Lethargy: Status: Acute Assessment and plan: Multiple co-morbidities that could play into the etiology. Did start Trazadone and Wellbutrin this admission. Will d/c both. Monitor. Subjective Subjective Interval history since last seen: Patient c/o being tired. Some concerns by staff of confusion. She has noted to have intermittent jerking movement of arms; she states this has been a long-standing occurence. Exam Const General: cooperative Nutritional Appearance: overweight Orientation: alert, oriented to person and oriented to place Resp Effort & Inspection: normal respiratory effort Auscultation: clear to auscultation bilaterally Cardio Rate: regular rate Rhythm: regular rhythm Heart Sounds: S1 normal and S2 normal Neuro General: patient alert and moves all extremities Speech: speech normal Motor: muscle tone normal throughout Objective Objective Clinical Data: Vital Signs Temperature 35.7 C L 07/04/20 07:34 Temperature Source Tympanic 07/04/20 07:34 Pulse 75 07/04/20 09:04 Pulse Rhythm Regular 07/04/20 09:46 Respiratory Rate 16 07/04/20 07:34 Respiratory Effort Non-Labored 07/04/20 09:46 Respiratory Depth Normal 07/04/20 09:46 Respiratory Pattern Normal 07/04/20 09:46 Blood Pressure 123/75 07/04/20 07:34 Pulse Oximetry 99 07/04/20 07:34 Oxygen Delivery Method Room Air 07/04/20 07:34 Oxygen Flow Rate 0 07/04/20 07:34 Pain Level 3 07/04/20 08:30 Comment 07/01/20 19:00 Intake & Output 07/03/20 07/03/20 07/04/20 11:59 23:59 11:59 Intake Total 780 / 1740 960 / 1740 530 / 530 Balance 780 / 1740 960 / 1740 530 / 530 Weight 69.4 kg 69.2 kg Intake: IV 50 / 670 620 / 670 50 / 50 Oral 730 / 1070 340 / 1070 480 / 480 Other: Urine Color Yellow Urine Appearance Clear Clear Clear Urine Odor Normal Comment pt dry at this time Voiding Methods Diaper Diaper Diaper Incontinent Incontinent Incontinent Laboratory Results WBC 5.57 10^3/uL (4.4-10.8) 07/03/20 06:25 RBC 2.73 10^6/uL (3.93-5.22) L 07/03/20 06:25 Hgb 8.1 g/dL (11.2-15.7) L 07/03/20 06:25 Hct 25.7 % (36.0-46.0) L 07/03/20 06:25 MCV 94.1 fL (80-95) 07/03/20 06:25 MCH 29.7 pg (27.0-33.0) 07/03/20 06:25 MCHC 31.5 % (32.0-36.0) L 07/03/20 06:25 RDW 17.7 % (11.7-14.6) H 07/03/20 06:25 Plt Count 326 10^3/uL (130-400) 07/03/20 06:25 MPV 8.4 fL (8.0-11.0) 07/03/20 06:25 Immature Gran % 1.3 07/03/20 06:25 Neutrophils % 70.8 07/03/20 06:25 Lymphocytes % 12.2 07/03/20 06:25 Monocytes % 10.1 07/03/20 06:25 Eosinophils % 5.2 07/03/20 06:25 Basophils % 0.4 07/03/20 06:25 Absolute Neutrophils 3.95 10^3/uL (1.2-6.7) 07/03/20 06:25 Absolute Lymphocytes 0.68 10^3/uL (1.2-3.4) L 07/03/20 06:25 Absolute Monocytes 0.56 10^3/uL (0.1-0.8) 07/03/20 06:25 Absolute Eosinophils 0.29 10^3/uL (0.0-0.7) 07/03/20 06:25 Absolute Basophils 0.02 10^3/uL (0.0-0.2) 07/03/20 06:25 RBC Morphology See below 06/29/20 06:05 Polychromasia Present 06/29/20 06:05 Hypochromasia 1+ 06/29/20 06:05 Basophilic Stippling Present 06/29/20 06:05 Anisocytosis 2+ 06/29/20 06:05 Microcytosis 1+ 06/29/20 06:05 Macrocytosis 1+ 06/29/20 06:05 Sodium 139 mmol/L (136-145) 07/03/20 06:25 Potassium 3.6 mmol/L (3.5-5.1) 07/03/20 06:25 Chloride 101 mmol/L (98-107) 07/03/20 06:25 Carbon Dioxide 30.2 mmol/L (21.0-32.0) 07/03/20 06:25 Anion Gap 7.8 mmol/L (3-11) 07/03/20 06:25 BUN 35 mg/dL (7-18) H 07/03/20 06:25 Creatinine 1.21 mg/dL (0.55-1.02) H 07/03/20 06:25 Estimated GFR/1.73 m2 43.26 (mL/min/1.73m2) 07/03/20 06:25 Glucose 118 mg/dL (74-106) H 07/03/20 06:25 Calcium 9.1 mg/dL (8.5-10.1) 07/03/20 06:25 Magnesium Cancelled 06/29/20 16:00 Total Bilirubin 0.2 mg/dL (0.2-1.0) 07/03/20 06:25 AST 11 U/L (15-37) L 07/03/20 06:25 ALT < 6 U/L (14-59) L 07/03/20 06:25 Alkaline Phosphatase 94 U/L (46-116) 07/03/20 06:25 C-Reactive Protein 6.38 mg/dL (0.0-0.3) H 07/03/20 06:25 Total Protein 6.1 g/dL (6.4-8.2) L 07/03/20 06:25 Albumin 2.5 g/dL (3.4-5.0) L 07/03/20 06:25 25-OH Vitamin D Total 11.7 ng/ml (30-100) L 07/03/20 06:25 TSH 4.53 uIU/mL (0.36-3.74) H 07/03/20 06:25 Free T4 1.01 ng/dL (0.76-1.46) 07/03/20 06:25
--- NOTE | 2020-07-04 14:58 | CHAPLAIN ---
Sunshine was sitting up in her chair when I visited. She had an AKA at [facility] and since December has spent time at either [facility] or [facility]. Her daughter has been able to visit, but not often. She was living independently prior to her amputation and stay at [facility]. She seems to be comfortable about being here, but anxious about what will happen next.
[2020-07-04 15:50] VITALS: BP 146/76; PULSE 83; RESP 18; TEMP 36.5; O2SAT 97
[2020-07-04] MEDS: Atorvastatin 40 MG TAB PO (20:37)
[2020-07-04] MEDS: dilTIAZem CD 120 MG CAPCR 240 MG PO (21:33)
[2020-07-04] MEDS: Melatonin 3 MG TAB PO (21:36)
[2020-07-04 23:30] VITALS: BP 144/72; PULSE 80; RESP 18; TEMP 36.6; O2SAT 97
[2020-07-05] MEDS: Levothyroxine 25 MCG TAB PO (05:25)
[2020-07-05] MEDS: Normal Saline Flush 10 ML SYR IVP ×2 (05:26→22:29)
[2020-07-05] MEDS: ceFAZolin 2 GM/50 ML BAG IVPB ×3 (05:26→21:21)
[2020-07-05 07:37] LABS: Abs Immature Grans 0.07 10^3/uL (0.0-0.06); Absolute Basophil Count 0.02 10^3/uL (0.0-0.2); Absolute Eosinophil Count 0.32 10^3/uL (0.0-0.7); Absolute Lymphocyte Count 0.61 10^3/uL (1.2-3.4); Absolute Monocyte Count 0.59 10^3/uL (0.1-0.8); Absolute Neutrophil Count 5.01 10^3/uL (1.2-6.7); Basophils % 0.3; Eosinophils % 4.8; HCT 26.6 % (36.0-46.0); HGB 8.3 g/dL (11.2-15.7); Immature Grans % 1.1; Lymphocytes % 9.2; MCH 29.3 pg (27.0-33.0); MCHC 31.2 % (32.0-36.0); MPV 8.8 fL (8.0-11.0); Monocytes % 8.9; Neutrophils % 75.7; Nucleated RBC 0 %; Platelet Count 341 10^3/uL (130-400); RBC 2.83 10^6/uL (3.93-5.22); RDW 17.5 % (11.7-14.6); RDW-SD 59.5 fL; WBC 6.62 10^3/uL (4.4-10.8)
[2020-07-05 07:40] LABS: Anion Gap 7.5 mmol/L (3-11); BUN 38 mg/dL (7-18); CO2 32.5 mmol/L (21.0-32.0); CREATININE 1.13 mg/dL (0.55-1.02); Calcium 9.5 mg/dL (8.5-10.1); Chloride 101 mmol/L (98-107); Estimated GFR 46.82 (mL/min/1.73m2); Glucose 135 mg/dL (74-106); Potassium 3.6 mmol/L (3.5-5.1); Sodium 141 mmol/L (136-145)
[2020-07-05] MEDS: Tiotropium Bromide-Respimat 10 PUFF INH 2 PUFF IH (08:03)
[2020-07-05 08:10] LABS: Procalcitonin 0.1 ng/mL
[2020-07-05] MEDS: Metoprolol CR 100 MG TABCR 200 MG PO (08:56)
[2020-07-05] MEDS: Apixaban 5 MG TAB PO ×2 (08:56→20:15)
[2020-07-05] MEDS: Acetaminophen 325 MG TAB 650 MG PO (08:56)
[2020-07-05] MEDS: Gabapentin 300 MG CAP PO ×2 (08:56→20:15)
[2020-07-05] MEDS: Torsemide 20 MG TAB 40 MG PO (08:57)
[2020-07-05] MEDS: Digoxin 0.125 MG TAB 0.0625 MG PO (08:57)
[2020-07-05] MEDS: Potassium Chloride 20 MEQ TABCR PO (08:57)
[2020-07-05] MEDS: Loratidine 10 MG TAB PO (08:58)
[2020-07-05] MEDS: Pantoprazole 20 MG TABCR PO (08:58)
[2020-07-05] MEDS: Clopidogrel 75 MG TAB PO (08:58)
[2020-07-05] MEDS: DULoxetine 30 MG CAP 60 MG PO (08:58)
[2020-07-05] MEDS: Beta-Carotene(A) w/C,E, & Minerals TAB PO (08:58)
[2020-07-05] MEDS: Allopurinol 100 MG TAB PO (08:58)
--- NOTE | 2020-07-05 08:58 | OTTR_ITS ---
Date of service: 07/05/20 Time of Service: 08:40 Occupational Therapy Notes Occupational Therapy Inpatient Treatment Note Date: 07/05/20 PRECAUTIONS: Fall, Standard, DNR/DNI SUBJECTIVE: Pt was lying in bed when OT arrived. She was able to open her eyes and stated that she would like to get washed up and that she is tired today. She notes that her pain in her (R) leg is better today. OBJECTIVE: PAIN:no c/o pain BATHING: Lying in bed with mod vc and frequent reminders to keep eyes open pt was able to Upper Body: (I) wash her face, mod (A) (B) UE as pt could grab the washcloth but kept closing her eyes while performing Lower Body: Max (A) (L) LE pt states that leaning forward is not comfortable for her. DRESSING: Upper Extremity: Lying in bed min (A) don and doffing hospital gown with mod vc throughout Lower Extremity: Max (A) don and doffing (L) sock GROOMING: Lying in bed min (A) brushing hair she required KENAITZE to get brush to hair but then was able to perform TOILETING: Incontinent with disposable underwear at this time. ASSESSMENT/PLAN: Pt requires mod vc throughout session and vc to keep eyes open. She is receptive to this and states that she would like to get washed up but will need help throughout session. Functionally pts pain seems better managed and when her eyes are open she is able to participate in OT session. She does not want to sit for todays session indicating that she is fearful of pain in her back if she does. Goal is for pt to perform her bathing in the sitting position. She is unable to transfer to a commode at this time and continues to utilize the bed silva or incontinent in her disposable underwear. OT plans to work with pt to progress her functional (I) if pain allows at next session. *Progress note due at next session for assessment of goals and functional (I) post 1 week. TREATMENT CODES/TIME: [id number], 20 minutes (08:40) Yue Lala, OTR/L [facility]
[2020-07-05] MEDS: Fluticasone NASAL SPRAY 16 GM BTL NS (08:59)
[2020-07-05] MEDS: Insulin Aspart 300 UNITS/3 ML PEN SC ×3 (08:59→17:09)
[2020-07-05] MEDS: Diclofenac 1% Gel 100 GM TUBE TP ×3 (09:00→20:16)
[2020-07-05] MEDS: Nystatin POWDER 15 GM JAR TP ×2 (09:01→21:23)
[2020-07-05] MEDS: Polyethylene Glycol 3350 17 GM PACKET PO (09:01)
[2020-07-05 09:15] VITALS: BP 124/78; PULSE 66; RESP 18; TEMP 36.4; O2SAT 100
[2020-07-05] MEDS: traMADol 50 MG TAB PO (09:37)
--- NOTE | 2020-07-05 09:45 | PT.INTREAT ---
Date of service: 07/05/20 Time of Service: 09:45 PT Notes Visit Reasons: MSSA INFECTION Sunshine was agreeable to another session of right AKA residual limb wrapping early today. JESSICA Harden was assisting and nurse Lacey was present in the room to watch the process. Patient received R AKA residual limb wrapping using one 6-inch wide ELVA wrap and two 4-inch wide ELVA wraps. A tubigrip was then placed to reinforce wrapping and add protection to residual limb. Education about the benefits of said wrapping in preventing limb swelling, minimizing pain, and shaping the limb in preparation for prosthesis use was done with patient as well. Thank you very much for the opportunity to participate in the care of this patient. Sandhya Holloway PT, DPT, CLT [facility] [place], [place]
--- NOTE | 2020-07-05 13:03 | PT.INTREAT ---
Date of service: 07/05/20 Time of Service: 13:03 PT Notes Visit Reasons: MSSA INFECTION Inpatient Physical Therapy Treatment Note [facility] Date: 07/05/2020 PRECAUTIONS: Fall SUBJECTIVE: Sunshine states that she is feeling better today, not as tired. OBJECTIVE: PAIN: Patient c/o LBP with bed mobility BED MOBILITY/TRANSFERS: THEREX: Patient completed a resisted LE strengthening and stabilization program as well as a resisted UE strengthening program, in both a.m. and p.m. She tolerated the addition of an ankle weight on L, and increased resistance with UE exercises. ASSESSMENT: Patient tolerated sessions with minimal complaint of LBP with bed mobility. She was able to tolerate a progression in her ther ex program, and is demonstrating improved exercise mechanics, as well as improved exercise tolerance. PLAN: Continue with PT's POC TREATMENT CODE/TIME: Session 1: 15 minutes; [id number] Session 2: 20 minutes; [id number]
[2020-07-05] MEDS: Atorvastatin 40 MG TAB PO (20:15)
[2020-07-05] MEDS: diphenhydrAMINE 25 MG CAP PO (20:27)
[2020-07-05] MEDS: Melatonin 3 MG TAB PO (21:21)
[2020-07-05] MEDS: dilTIAZem CD 120 MG CAPCR 240 MG PO (21:21)
[2020-07-06] MEDS: Levothyroxine 25 MCG TAB PO (05:14)
[2020-07-06] MEDS: ceFAZolin 2 GM/50 ML BAG IVPB ×3 (05:14→22:44)
[2020-07-06] MEDS: Diclofenac 1% Gel 100 GM TUBE TP ×4 (05:39→20:20)
[2020-07-06] MEDS: Normal Saline Flush 10 ML SYR IVP ×2 (06:27→22:45)
[2020-07-06 07:40] VITALS: BP 131/67; PULSE 84; RESP 18; TEMP 36.6; O2SAT 96
--- NOTE | 2020-07-06 07:56 | OTPN_ITS ---
Date of service: 07/06/20 Time of Service: 07:25 Occupational Therapy Notes Occupational Therapy Inpatient Progress Note Date: 07/06/20 Dates of Service: 06/29/20-07/06/20 Referring Doctor:Beth Fulton NP OT Orders: Non-Urgent Precautions: Fall, standard, FULL PATIENT PROFILE/ADMITTING DIAGNOSIS: Pt is a 75 year female who has transitioned to [facility] for [facility] bed 1 rehabilitative care for a dx of MSSA and (R) AKA, CHF, Chronic anemia, DM II, A-fib, PAD and a chief c/o infection and s/p amputation. Past Medical History- Medical History Abnormal auditory perception (Inactive 10/25/13) Abnormal auditory perception (Inactive 11/06/15) Acute on chronic anemia (Acute) Atrial fibrillation (Chronic) CHF (congestive heart failure) (Chronic) Diabetes mellitus type 2 in nonobese (Acute) MSSA bacteremia (Acute) Obesity with body mass index 30 or greater (Inactive 10/25/13) Obstructive sleep apnea (adult) (pediatric) (Inactive 10/25/13) PAD (peripheral artery disease) (Acute) Pulmonary edema (Resolved) Sensorineural hearing loss, bilateral (Resolved 11/06/15) Sensorineural hearing loss, bilateral (Inactive 10/11/13) Sensory hearing loss, bilateral (Inactive 10/25/13) Surgical History Above knee amputation of right lower extremity (Acute ~05/2020) Social History/Home Situation: Pt has been residing at [facility] since May. She states that she gets (A) with dressing, bathing and grooming. She performs her bathing sitting in a chair with max (A) set up and clean up. She has all DME mets at her facility. She uses a FWW for functional mobility as well as transfers prior to (R) AKA. She has two daughters. She does not feel that returning to her apartment in [place] is a realistic goal and states this to OT at start of session. Equipment owned/DME: Resides at [facility] since May all DME met at [facility] SUBJECTIVE: Pt was lying in bed when OT arrived. She was agreeable to OT session and states that she is concerned about her father (who is per pts EMR) she states that she needs to call her dad and that she is worried about him because he is so sick. OT asks pt if her daughter came to visit her and pt states that she does not have a daughter. Pt was confused and was able to answer questions but was presenting with decreased gross motor control of her (B) UE and was unable to hold her cellphone. I did go to RN who reports that pt has had multiple nights and early mornings of confusion in the past couple days. OBJECTIVE: Pain: 2/10 pain in lower back per pt report ROM: RUE AROM WFL L UE AROM WFL STRENGTH: RUE 4/5 throughout globally LUE 4/5 throughout globally *Pt is (R) hand dominant. FUNCTIONAL MOBILITY/ADLS: Transfers with marlene lift BATHING Sitting in bed with max (A) set up and clean up with mod vc and tactile cues for holding washcloth Bathing UE (I) washing face, mod (A) washing (B) UE, min (A) abdomen, max (A) hair Bathing LE Mod vc for bending leg towards body and pt was able to wash to mid calf with min (A). DRESSING Sitting in chair Dressing UE Mod (A[facility] Dressing LE (I) able to don and doff (L) sock and shoe with increased performance time and mod vc for bending knee towards body. GROOMING Sitting in bed while brushing hair with min (A) TOILETING Max (A) toileting hygiene and pt is incontinent in disposable underwear EATING Sitting in bed, pt is (I) with food to mouth translation and chewing/swallowing of food. BALANCE: Static sitting Fair-Good Dynamic Sitting Poor-fair Static Standing Poor per pt report Dynamic Standing Poor per pt report ASSESSMENT: Patient is a 75-year-old female referred to occupational therapy services with diagnosis of MSSA, (R) AKA and is admitted to [facility] for SWB 1 level of care. Pt has been seen over the past week for skilled Occupational Therapy services. She is able to make small progressions. Her pain has been a limiting factor in her functional (I) she is better managed for her pain at this time and is requiring (A) while lying in bed for her ADLs. She is able to roll for bed mobility but requires vc and is a marlene lift transfer at this time for functional mobility. Goals have been changed and progressed based on pts current level of function. OT will continue to work with pt to increased her functional activity tolerance and functional (I). GOALS Goals x1 week 1. Transfers with FWW with Min (A)- not met 2. Dressing sitting in chair (I) shirt, sock, shoe, Min (A) pants- not met 3. Bathing sitting in chair with max (A) set/clean up (I)- progressing towards 4. Toileting on commode (I)- not met 5. Eating (I)- met Goal Progressions based on pts current level of function: Goals x1 week 1. Transfers with Min (A) to sitting position on side of the bed 2. Dressing sitting on side of the bed (I) don and doffing hospital gown, min (A) don and doffing sock 3. Bathing sitting on side of bed (I) with face, (B) UE and abdomen, (I) for (L) LE to mid calf, min (A) foot 4. Toileting on commode with mod (A) PLAN OF CARE/TREATMENT PLAN: 1x/day, 5 days/ week x 1week Initiate Occupational Therapy Services for bathing, dressing, grooming, toileting, eating, transfer training. DISCHARGE RECOMMENDATIONS Return to [facility] when medically cleared per MD. TREATMENT TIME/MINUTES/CODES 39438, 30 minutes (07:25) [facility]
--- NOTE | 2020-07-06 07:56 | PDOC.CMACT ---
- If Service Date Differs Date of service: 07/06/20 Time of Service: 07:56 Care Management Activity Note S/O: Sunshine enjoys watching tv and using her Ipad during the day. She has been doing some word searches and today was provide with coloring pictures and crayons. Just shared that she finds that the days go by quickly as she sees many caregivers throughout the course of the day. P:P:Sunshine will return to [facility] at the completion of her IV abx. She will continue to receive PT and OT throughout her stay. CM to coordinate discharge needs and return to [facility] when medically ready.
[2020-07-06] MEDS: Tiotropium Bromide-Respimat 10 PUFF INH 2 PUFF IH (08:22)
[2020-07-06] MEDS: traMADol 50 MG TAB PO (08:43)
[2020-07-06] MEDS: Allopurinol 100 MG TAB PO (08:44)
[2020-07-06] MEDS: Apixaban 5 MG TAB PO ×2 (08:44→20:19)
[2020-07-06] MEDS: Insulin Aspart 300 UNITS/3 ML PEN SC ×3 (08:44→17:01)
[2020-07-06] MEDS: Pantoprazole 20 MG TABCR PO (08:45)
[2020-07-06] MEDS: Digoxin 0.125 MG TAB 0.0625 MG PO (08:45)
[2020-07-06] MEDS: Beta-Carotene(A) w/C,E, & Minerals TAB PO (08:45)
[2020-07-06] MEDS: Clopidogrel 75 MG TAB PO (08:45)
[2020-07-06] MEDS: DULoxetine 30 MG CAP 60 MG PO (08:45)
[2020-07-06] MEDS: Metoprolol CR 100 MG TABCR 200 MG PO (08:45)
[2020-07-06] MEDS: Potassium Chloride 20 MEQ TABCR PO (08:45)
[2020-07-06] MEDS: Gabapentin 300 MG CAP PO ×2 (08:45→20:19)
[2020-07-06] MEDS: Nystatin POWDER 15 GM JAR TP ×2 (08:46→20:20)
[2020-07-06] MEDS: Polyethylene Glycol 3350 17 GM PACKET PO (08:46)
[2020-07-06] MEDS: Loratidine 10 MG TAB PO (08:46)
[2020-07-06] MEDS: Torsemide 20 MG TAB 40 MG PO (08:46)
[2020-07-06] MEDS: Fluticasone NASAL SPRAY 16 GM BTL NS (08:47)
--- NOTE | 2020-07-06 09:24 | PT.INPN ---
Date of service: 07/06/20 Time of Service: 09:24 PT Notes Visit Reasons: MSSA INFECTION Physical Therapy Inpatient Progress Note Date: 07/06/2020 Precautions: Fall. Standard. Activity as tolerated. Subjective: Sunshine continues to complain of low back pain and phantom limb pain on the right side at rest and with movement. Objective: General Observation: R AKA residual limb covered with Lev wraps. PICC line in right arm. Left equinovarus deformity. Abdominal panniculus. Mental Status: Alert and oriented x 4. Hears better in the L ear. Pain: 9/10 in low back area with movement ROM: Right Upper Extremity: Shoulder Flexion WFL. Shoulder abduction WFL. Elbow flexion WFL. Wrist flexion WFL. Opening and closing of hand WFL. Left Upper Extremity: Shoulder Flexion WFL. Shoulder abduction WFL. Elbow flexion WFL. Wrist flexion WFL. Opening and closing of hand WFL. Right Lower Extremity: Hip flexion WFL. Hip abduction WFL. Left Lower Extremity: Hip flexion WFL. Hip abduction WFL. Knee flexion WFL. Knee extension -15 degrees. Ankle dorsiflexion 20 degrees from fully plantarflexed position. Ankle myostatic plantarflexion contracture of about 45 degrees. Strength: Right Upper Extremity: Shoulder flexors 4-/5. Shoulder abductors 4-/5. Elbow flexors 4-/5. Elbow extensors 4-/5. [facility] strong. Left Upper Extremity: Shoulder flexors 4-/5. Shoulder abductors 4-/5. Elbow flexors 4-/5. Elbow extensors 4-/5. [facility] strong. Right Lower Extremity: Hip flexors 4-/5. Hip abductors 4-/5. Knee flexors 4-/5. Left Lower Extremity: Hip flexors 4-/5. Hip abductors 4-/5. Knee flexors 4-/5. Knee extensors 3-/5. Ankle dorsiflexors /5. Ankle plantarflexors 5/5. Trunk: Patient is now able to assume a more a erect trunk position while seated at edge of bed despite pain level. She is able to do a modified bridge while supine in bed. Sensation: Intact as to pain and pressure on left LE in the right residual limb. Bed Mobility/Transfers: Supine to sit minimal to moderate assist of 2 depending on pain level Sit to supine minimal to moderate assist of 2 depending on pain level Sit to stand minimal to moderate assist of 2 depending on pain level Stand to sit minimal to moderate assist of 2 depending on pain level Bed to chair moderate assist of 2 using slide board Chair to bed moderate assist of 2 using slide board Gait: Non-ambulatory. L Residual limb length from R ASIS: 32 cm Balance: Static Sitting: Good Dynamic Sitting: Fair Static Standing: Poor Dynamic Standing: Poor Special Tests: Mobility Limitations Standardized Measure [facility] AM-PAC 6 clicks Basic Mobility Inpatient Short Form: Raw Score: 8 CMS Score: 87% deficit Informed Consent/Education: Patient instructed in purpose of PT consult and plan of care. Assessment: Sunshine continues to demonstrate significant functional mobility decline, generalized weakness, ambulatory dysfunction, balance impairment, and activity tolerance resulting from admitting diagnoses. Pain level is a major factor in her ability to perform mobility ADLs. Pre-medication for pain has considerably improved level of participation otherwise she mostly requires encouragement to participate in therapy. Her trunk stability is beginning to improve which is helping with her ability to complete slide board transfers. 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 Sunshine will continue to benefit from physical therapy services to maximize mobility level in anticipation of return to SNF when medically cleared. Patient presents with clinical signs and symptoms consistent with current/admitting diagnoses that have resulted to mobility limitations, gait instability, generalized weakness, and impairment of motor control as demonstrated by the following impairment level findings: 1. Decreased strength to B UE/LE major muscle groups 2. Impaired sitting/standing balance 3. Impaired activity tolerance 4. Limitation of joint range of motion in left ankle and left knee Impairments are contributing to the following functional limitations: 1. Dependent bed mobility skills 2. Increased dependence with transfers 3. Inability to safely ambulate without assistive device and physical assistance 4. Increase completion time for mobility ADL performance 5. Increased fall risk 6. Inability to negotiate steps alone safely Patient is assessed as a 70919 high complexity based on the following: History: 75-year-old female with impairment level findings, functional limitations, and past medical history as indicated above Examination: Demonstrable impairment in strength, balance, and mobility level with underlying impairments and functional limitations as documented above Presentation:Evolving Decision Makin high complexity Goals: Goals X1 week 1. Supine-Sit minimal assist NOT MET 2. Sit-Supine minimal assist NOT MET 3. Sit-Stand minimal assist of 2 NOT MET 4. Stand-Sit minimal assist of 2 NOT MET 5. Bed-Chair minimal assist of 2 NOT MET 6. Chair-Bed mod assist of 2 NOT MET 7. Minimal assist of 2 for gait on level surface with use of least restrictive device for at least 300 feet without report of pain nor dyspnea NOT MET 8. Minimal assist of 2 for stair negotiation while holding onto bilateral rails for at least 10 steps without report of pain nor dyspnea NOT MET 9. Minimal assist of 2 with home exercise program NOT MET 10. Good static and dynamic standing balance/tolerance NOT MET Plan of Care/Treatment Plan: 1-2x/day, 7 days/week x 1 week. Plan of care has been reviewed with the PERL DEVELOPER providing the service under Physical Therapy direction. Initiate Physical Therapy intervention for strengthening, bed mobility, transfers, gait, stairs, balance training, use of assistive device. DISCHARGE RECOMMENDATIONS: Patient will benefit from assisted facility placement for continued skilled physical therapy services in order to progress mobility level, strength, and balance as well as to ensure preprosthetic training and R residual limb reshaping. TREATMENT CODE/TIME: 66905 x 14 minutes, 04511 x 25 minutes beginning at 9:24 AM. Thank you for the opportunity to participate in the care of this patient. Sandhya Holloway PT, DPT, CLT [facility] [place], [place]
--- NOTE | 2020-07-06 15:04 | PT.INTREAT ---
Date of service: 07/06/20 Time of Service: 13:30 PT Notes Visit Reasons: MSSA INFECTION Inpatient Physical Therapy Treatment Note [facility] Date: 07/06/2020 SUBJECTIVE: Sunshine has periods of confusion and slight hallucinations today. OBJECTIVE: [] PAIN: continued c/o back pain. BED MOBILITY/TRANSFERS Rolling L/R: min A THEREX:global strength and conditioning see flowsheet for details. ASSESSMENT: improvements noted with strength as she can now perform a pull up on trapeze, bridging ex more effective. She does have periods were she seems confused, disorientated with some hallucinations. She is able to be redirected. PLAN: continue with PT POC, progressing her strength and functional mobility. TREATMENT CODE/TIME: 25 min this pm. [id number].
[2020-07-06] MEDS: Atorvastatin 40 MG TAB PO (20:19)
[2020-07-06] MEDS: Melatonin 3 MG TAB PO (22:45)
[2020-07-06] MEDS: dilTIAZem CD 120 MG CAPCR 240 MG PO (22:45)
[2020-07-07] MEDS: Levothyroxine 25 MCG TAB PO (06:12)
[2020-07-07] MEDS: ceFAZolin 2 GM/50 ML BAG IVPB ×3 (06:12→21:46)
[2020-07-07] MEDS: Normal Saline Flush 10 ML SYR IVP ×3 (06:16→21:46)
[2020-07-07 07:14] VITALS: BP 136/73; PULSE 80; RESP 16; TEMP 37.1; O2SAT 93
[2020-07-07] MEDS: Tiotropium Bromide-Respimat 10 PUFF INH 2 PUFF IH (07:30)
[2020-07-07] MEDS: Acetaminophen 325 MG TAB 650 MG PO (08:43)
[2020-07-07] MEDS: Polyethylene Glycol 3350 17 GM PACKET PO (08:44)
[2020-07-07] MEDS: Loratidine 10 MG TAB PO (08:44)
[2020-07-07] MEDS: Metoprolol CR 100 MG TABCR 200 MG PO (08:44)
[2020-07-07] MEDS: DULoxetine 30 MG CAP 60 MG PO (08:44)
[2020-07-07] MEDS: Beta-Carotene(A) w/C,E, & Minerals TAB PO (08:44)
[2020-07-07] MEDS: Allopurinol 100 MG TAB PO (08:44)
[2020-07-07] MEDS: Clopidogrel 75 MG TAB PO (08:45)
[2020-07-07] MEDS: Torsemide 20 MG TAB 40 MG PO (08:45)
[2020-07-07] MEDS: Digoxin 0.125 MG TAB 0.0625 MG PO (08:45)
[2020-07-07] MEDS: Gabapentin 300 MG CAP PO ×2 (08:45→19:47)
[2020-07-07] MEDS: Fluticasone NASAL SPRAY 16 GM BTL NS (08:46)
[2020-07-07] MEDS: Pantoprazole 20 MG TABCR PO (08:46)
[2020-07-07] MEDS: Potassium Chloride 20 MEQ TABCR PO (08:46)
[2020-07-07] MEDS: Diclofenac 1% Gel 100 GM TUBE TP ×4 (08:46→19:48)
[2020-07-07] MEDS: Apixaban 5 MG TAB PO ×2 (08:46→19:47)
[2020-07-07] MEDS: Insulin Aspart 300 UNITS/3 ML PEN SC ×3 (08:46→17:01)
[2020-07-07] MEDS: Nystatin POWDER 15 GM JAR TP ×2 (08:47→19:48)
--- NOTE | 2020-07-07 10:13 | OT.INNT ---
Date of service: 07/07/20 Time of Service: 10:13 Occupational Therapy Notes 07/07/20 OT attempted to see pt x2 this morning. Second session pt reports that she has already performed her ADL/IADL routines. OT will attempt to resume OT services on Tuesday 07/10. [facility]
--- NOTE | 2020-07-07 12:48 | W.DIABETESNO ---
Date of service: 07/07/20 Time of Service: 12:48 Diabetes Note NOTE: Blood sugars well controlled, continues to meet 100% nutrient and fluid needs by mouth, weight stable. Not at risk for nutritional decline at this time. will continue to follow. Time Spent in Nutritional Counseling and Treatment: 0 time spent face to face
--- NOTE | 2020-07-07 14:46 | PT.INTREAT ---
Date of service: 07/07/20 Time of Service: 14:00 PT Notes Visit Reasons: MSSA INFECTION Inpatient Physical Therapy Treatment Note [facility] Date: 07/07/2020 SUBJECTIVE: Sunshine is very confused today. I noticed that she would hallucinate, and talking to people that were not there. OBJECTIVE: [] BED MOBILITY/TRANSFERS pt was transferred to chair and back to bed via [place] with nursing staff today. THEREX: completed a global strengthening routine of U/LE. Resistance was used this am. See flowsheet for details. ASSESSMENT: Sunshine was confused this am, however I was able to redirect her. This was not the case this pm. She was unable to follow directions with ex this pm, required consistent verbal and tactile cues. PLAN: will continue to work on her strength and functional mobility following PT POC. TREATMENT CODE/TIME: 25 min in am and 15 min in pm. [id number]
[2020-07-07] MEDS: Atorvastatin 40 MG TAB PO (19:47)
[2020-07-07 21:00] VITALS: BP 127/88; PULSE 94; RESP 18; TEMP 36.5; O2SAT 97
[2020-07-07] MEDS: dilTIAZem CD 120 MG CAPCR 240 MG PO (21:45)
[2020-07-07] MEDS: Melatonin 3 MG TAB PO (21:46)
[2020-07-08] MEDS: Levothyroxine 25 MCG TAB PO (06:32)
[2020-07-08] MEDS: ceFAZolin 2 GM/50 ML BAG IVPB (06:32)
[2020-07-08 07:34] VITALS: BP 147/72; PULSE 83; RESP 19; TEMP 36.5; O2SAT 100
[2020-07-08] MEDS: Polyethylene Glycol 3350 17 GM PACKET PO (08:23)
[2020-07-08] MEDS: Potassium Chloride 20 MEQ TABCR PO (08:23)
[2020-07-08] MEDS: Insulin Aspart 300 UNITS/3 ML PEN SC ×2 (08:24→12:07)
[2020-07-08] MEDS: Nystatin POWDER 15 GM JAR TP ×2 (08:24→19:42)
[2020-07-08] MEDS: Fluticasone NASAL SPRAY 16 GM BTL NS (08:24)
[2020-07-08] MEDS: Pantoprazole 20 MG TABCR PO (08:25)
[2020-07-08] MEDS: Apixaban 5 MG TAB PO ×2 (08:25→19:42)
[2020-07-08] MEDS: Torsemide 20 MG TAB 40 MG PO (08:25)
[2020-07-08] MEDS: Clopidogrel 75 MG TAB PO (08:25)
[2020-07-08] MEDS: DULoxetine 30 MG CAP 60 MG PO (08:25)
[2020-07-08] MEDS: Allopurinol 100 MG TAB PO (08:25)
[2020-07-08] MEDS: Loratidine 10 MG TAB PO (08:26)
[2020-07-08] MEDS: Digoxin 0.125 MG TAB 0.0625 MG PO (08:26)
[2020-07-08] MEDS: Gabapentin 300 MG CAP PO ×2 (08:26→19:42)
[2020-07-08] MEDS: Beta-Carotene(A) w/C,E, & Minerals TAB PO (08:26)
[2020-07-08] MEDS: Metoprolol CR 100 MG TABCR 200 MG PO (08:26)
[2020-07-08] MEDS: Diclofenac 1% Gel 100 GM TUBE TP ×4 (08:28→19:43)
--- NOTE | 2020-07-08 10:01 | PTTR_ITS ---
Date of service: 07/08/20 Time of Service: 10:01 PT Notes Visit Reasons: MSSA INFECTION 07/08/2020 SUBJECTIVE: Sunshine stating she slept well last night but she was up early. She notes minor discomfort in the right residual limb. OBJECTIVE: Pt supine in bed. Agreeable to PT treatment. Her wraps continue to be in place nicely. GAIT/Transfers: N/A THEREX: Skilled instruction provided for general LE and UE strengthening adding in intrinsic isometric Kegel activation. See flow sheet. ASSESSMENT: Pain appears to be under control during treatment today with minimal discomfort complaints. PLAN: Continue per POC. Treatment time: 15 minutes [id number] Ewa Goins PTA Clinic location: [facility] [place], [place]
[2020-07-08 10:44] LABS: Abs Immature Grans 0.09 10^3/uL (0.0-0.06); Absolute Basophil Count 0.03 10^3/uL (0.0-0.2); Absolute Eosinophil Count 0.35 10^3/uL (0.0-0.7); Absolute Lymphocyte Count 0.68 10^3/uL (1.2-3.4); Absolute Monocyte Count 0.73 10^3/uL (0.1-0.8); Absolute Neutrophil Count 6.37 10^3/uL (1.2-6.7); Basophils % 0.4; Eosinophils % 4.2; HCT 27.3 % (36.0-46.0); HGB 8.4 g/dL (11.2-15.7); Immature Grans % 1.1; Lymphocytes % 8.2; MCH 29.6 pg (27.0-33.0); MCHC 30.8 % (32.0-36.0); MCV 96.1 fL (80-95); MPV 8.3 fL (8.0-11.0); Monocytes % 8.8; Neutrophils % 77.3; Nucleated RBC 0 %; Platelet Count 334 10^3/uL (130-400); RBC 2.84 10^6/uL (3.93-5.22); RDW 17.6 % (11.7-14.6); RDW-SD 61.2 fL; WBC 8.25 10^3/uL (4.4-10.8)
[2020-07-08 10:53] LABS: Ammonia < 10 umol/L (11-32)
[2020-07-08 11:05] LABS: ALT 6 U/L (14-59); AST 10 U/L (15-37); Albumin 2.8 g/dL (3.4-5.0); Alkaline Phosphatase 111 U/L (46-116); Anion Gap 8.4 mmol/L (3-11); BUN 39 mg/dL (7-18); Bilirubin, Total 0.2 mg/dL (0.2-1.0); CO2 31.6 mmol/L (21.0-32.0); CREATININE 1.33 mg/dL (0.55-1.02); Calcium 9.6 mg/dL (8.5-10.1); Chloride 99 mmol/L (98-107); Estimated GFR 38.79 (mL/min/1.73m2); Glucose 177 mg/dL (74-106); Magnesium 1.8 mg/dL (1.8-2.4); Potassium 3.3 mmol/L (3.5-5.1); Sodium 139 mmol/L (136-145); Total Protein 6.8 g/dL (6.4-8.2)
[2020-07-08 11:06] LABS: Bilirubin Negative (Negative); Blood Trace-intact (Negative); Clarity Cloudy (Clear); Glucose Negative (Negative); Ketones Negative (Negative); Leukocyte Esterase Large (Negative); Nitrite Negative (Negative); Specific Gravity 1.015 (1.005-1.025); Urobilinogen 0.2 EU/dL (Up TO 0.2); pH 5.5 (5-8)
[2020-07-08 11:12] LABS: C-Reactive Protein 9.98 mg/dL (0.0-0.3)
[2020-07-08 11:16] LABS: Bacteria Many HPF (Negative); C & S Indicated? Yes; Casts Negative LPF (Negative); Crystals Negative HPF (Negative); Epithelial Cells Few HPF (Negative); Mucus Negative (Negative); RBC 0-2 HPF (0-2); WBC >50 HPF (0-5)
[2020-07-08 11:29] LABS: Digoxin 0.62 ng/mL (0.90-2.00)
--- NOTE | 2020-07-08 12:54 | PGE_ITS ---
Date of Service Date of service: 07/08/20 Time of Service: 12:55 Assessment and Plan Assessment and plan (1) Encephalopathy acute: Status: Acute Assessment and plan: Could be due to UTI, medication side effect, underlying dementia. At this point, abx were upgraded to vanco/cefepime. Blood cultures are being repeated. Monitor mental status. (2) UTI (urinary tract infection): Status: Acute Assessment and plan: No prior cx results available. Abx are being changed to empiric vanco/cefepime. Blood cultures are being checked. May explain elevation of CRP. (3) MSSA bacteremia: Status: Acute Assessment and plan: Abx escalated to vanco/cefepime. Elevated CRP could be due to UTI. Repeating blood cultures today. Was on cefazolin was plans to finish course tomorrow, which we now will have to be extended - duration depending on results of blood cultures. (4) Bullous dermatitis: Status: Acute Assessment and plan: New. General surgery is being consulted for skin bx. For now, plan to start topical steroids tomorrow. Subjective Subjective Interval history since last seen: Ms Whitlock was reported to have hallucinations and intermittent confusion, which has been getting progressively worse over the last few days. Additionally, she is now found to have a blister under her L breast, which is new since yesterday. On her UA, she had kerrie pus. The urine was thick and green in color. Patient reports that hallucinations started at [facility] and she thinks it's one of her medications. She reports severe itching. She has never had blisters before and has never seen a warehouse delivery driver. Exam Narrative Exam Narrative: General: elderly female, EKWOK, A&Ox3, but appears somewhat detached, itching HEENT: EOMI, MMM Heart: not auscultated Lungs: nonlabored breathing Abdomen: nondistended Extremities: s/p R AKA, stump dressed. LLE with dressing on great toe. Skin: bulla 3 cm in diameter under left breast with mildly erythematous border and serous contents Objective Objective Clinical Data: Abnormal lab results 07/08/20 07/08/20 07/08/20 Range/Units 10:34 10:34 10:34 RBC (3.93-5.22) 10^6/uL Hgb (11.2-15.7) g/dL Hct (36.0-46.0) % MCV (80-95) fL MCHC (32.0-36.0) % RDW (11.7-14.6) % Absolute Lymphocytes (1.2-3.4) 10^3/uL Potassium 3.3 L (3.5-5.1) mmol/L BUN 39 H (7-18) mg/dL Creatinine 1.33 H (0.55-1.02) mg/dL Glucose 177 H (74-106) mg/dL AST 10 L (15-37) U/L ALT 6 L (14-59) U/L Ammonia < 10 L (11-32) umol/L C-Reactive Protein 9.98 H (0.0-0.3) mg/dL Albumin 2.8 L (3.4-5.0) g/dL Urine Protein (Negative) mg/dL Urine Blood (Negative) Ur Leukocyte Esterase (Negative) Urine WBC (0-5) HPF Digoxin 0.62 L (0.90-2.00) ng/mL 07/08/20 07/08/20 Range/Units 10:34 10:54 RBC 2.84 L (3.93-5.22) 10^6/uL Hgb 8.4 L (11.2-15.7) g/dL Hct 27.3 L (36.0-46.0) % MCV 96.1 H (80-95) fL MCHC 30.8 L (32.0-36.0) % RDW 17.6 H (11.7-14.6) % Absolute Lymphocytes 0.68 L (1.2-3.4) 10^3/uL Potassium (3.5-5.1) mmol/L BUN (7-18) mg/dL Creatinine (0.55-1.02) mg/dL Glucose (74-106) mg/dL AST (15-37) U/L ALT (14-59) U/L Ammonia (11-32) umol/L C-Reactive Protein (0.0-0.3) mg/dL Albumin (3.4-5.0) g/dL Urine Protein Trace H (Negative) mg/dL Urine Blood Trace-intact H (Negative) Ur Leukocyte Esterase Large H (Negative) Urine WBC >50 H (0-5) HPF Digoxin (0.90-2.00) ng/mL Vital Signs Temperature 36.5 C 07/08/20 07:34 Temperature Source Temporal Artery Scan 07/08/20 07:34 Pulse 83 07/08/20 07:34 Pulse Rhythm Irregular 07/07/20 19:30 Respiratory Rate 19 07/08/20 07:34 Respiratory Effort Non-Labored 07/07/20 19:30 Respiratory Depth Normal 07/07/20 19:30 Respiratory Pattern Normal 07/07/20 19:30 Blood Pressure 147/72 H 07/08/20 07:34 Pulse Oximetry 100 07/08/20 07:34 Oxygen Delivery Method Room Air 07/08/20 07:34 Oxygen Flow Rate 0 07/08/20 07:34 Pain Level 0 07/08/20 07:34 Comment 07/07/20 21:00 Intake & Output 07/07/20 07/08/20 07/08/20 23:59 11:59 23:59 Intake Total 590 / 1000 Balance 590 / 1000 Intake: IV 100 / 150 Oral 490 / 850 Other: Urine Color Yellow Comment incontinent, large amount incontinent Stool Size Smear Small Stool Characteristics Soft Soft Voiding Methods Diaper Diaper Laboratory Results WBC 8.25 10^3/uL (4.4-10.8) 07/08/20 10:34 RBC 2.84 10^6/uL (3.93-5.22) L 07/08/20 10:34 Hgb 8.4 g/dL (11.2-15.7) L 07/08/20 10:34 Hct 27.3 % (36.0-46.0) L 07/08/20 10:34 MCV 96.1 fL (80-95) H 07/08/20 10:34 MCH 29.6 pg (27.0-33.0) 07/08/20 10:34 MCHC 30.8 % (32.0-36.0) L 07/08/20 10:34 RDW 17.6 % (11.7-14.6) H 07/08/20 10:34 Plt Count 334 10^3/uL (130-400) 07/08/20 10:34 MPV 8.3 fL (8.0-11.0) 07/08/20 10:34 Immature Gran % 1.1 07/08/20 10:34 Neutrophils % 77.3 07/08/20 10:34 Lymphocytes % 8.2 07/08/20 10:34 Monocytes % 8.8 07/08/20 10:34 Eosinophils % 4.2 07/08/20 10:34 Basophils % 0.4 07/08/20 10:34 Absolute Neutrophils 6.37 10^3/uL (1.2-6.7) 07/08/20 10:34 Absolute Lymphocytes 0.68 10^3/uL (1.2-3.4) L 07/08/20 10:34 Absolute Monocytes 0.73 10^3/uL (0.1-0.8) 07/08/20 10:34 Absolute Eosinophils 0.35 10^3/uL (0.0-0.7) 07/08/20 10:34 Absolute Basophils 0.03 10^3/uL (0.0-0.2) 07/08/20 10:34 RBC Morphology See below 06/29/20 06:05 Polychromasia Present 06/29/20 06:05 Hypochromasia 1+ 06/29/20 06:05 Basophilic Stippling Present 06/29/20 06:05 Anisocytosis 2+ 06/29/20 06:05 Microcytosis 1+ 06/29/20 06:05 Macrocytosis 1+ 06/29/20 06:05 Sodium 139 mmol/L (136-145) 07/08/20 10:34 Potassium 3.3 mmol/L (3.5-5.1) L 07/08/20 10:34 Chloride 99 mmol/L (98-107) 07/08/20 10:34 Carbon Dioxide 31.6 mmol/L (21.0-32.0) 07/08/20 10:34 Anion Gap 8.4 mmol/L (3-11) 07/08/20 10:34 BUN 39 mg/dL (7-18) H 07/08/20 10:34 Creatinine 1.33 mg/dL (0.55-1.02) H 07/08/20 10:34 Estimated GFR/1.73 m2 38.79 (mL/min/1.73m2) 07/08/20 10:34 Glucose 177 mg/dL (74-106) H 07/08/20 10:34 Calcium 9.6 mg/dL (8.5-10.1) 07/08/20 10:34 Magnesium 1.8 mg/dL (1.8-2.4) 07/08/20 10:34 Total Bilirubin 0.2 mg/dL (0.2-1.0) 07/08/20 10:34 Conjugated Bilirubin 0.10 mg/dL (0.00-0.20) 07/08/20 10:34 AST 10 U/L (15-37) L 07/08/20 10:34 ALT 6 U/L (14-59) L 07/08/20 10:34 Alkaline Phosphatase 111 U/L (46-116) 07/08/20 10:34 Ammonia < 10 umol/L (11-32) L 07/08/20 10:34 C-Reactive Protein 9.98 mg/dL (0.0-0.3) H 07/08/20 10:34 Total Protein 6.8 g/dL (6.4-8.2) 07/08/20 10:34 Albumin 2.8 g/dL (3.4-5.0) L 07/08/20 10:34 25-OH Vitamin D Total 11.7 ng/ml (30-100) L 07/03/20 06:25 Procalcitonin 0.1 ng/mL 07/05/20 06:45 TSH 4.53 uIU/mL (0.36-3.74) H 07/03/20 06:25 Free T4 1.01 ng/dL (0.76-1.46) 07/03/20 06:25 Urine Color Yellow (Yellow) 07/08/20 10:54 Urine Clarity Cloudy (Clear) 07/08/20 10:54 Urine pH 5.5 (5-8) 07/08/20 10:54 Ur Specific Clayton 1.015 (1.005-1.025) 07/08/20 10:54 Urine Protein Trace mg/dL (Negative) H 07/08/20 10:54 Urine Ketones Negative mg/dL (Negative) 07/08/20 10:54 Urine Blood Trace-intact (Negative) H 07/08/20 10:54 Urine Nitrite Negative (Negative) 07/08/20 10:54 Urine Bilirubin Negative (Negative) 07/08/20 10:54 Urine Urobilinogen 0.2 EU/dL (Up TO 0.2) 07/08/20 10:54 Ur Leukocyte Esterase Large (Negative) H 07/08/20 10:54 Urine RBC 0-2 HPF (0-2) 07/08/20 10:54 Urine WBC >50 HPF (0-5) H 07/08/20 10:54 Ur Epithelial Cells Few HPF (Negative) 07/08/20 10:54 Urine Crystals Negative HPF (Negative) 07/08/20 10:54 Urine Bacteria Many HPF (Negative) 07/08/20 10:54 Urine Casts Negative LPF (Negative) 07/08/20 10:54 Urine Mucus Negative (Negative) 07/08/20 10:54 Ur Culture Indicated? Yes 07/08/20 10:54 Urine Glucose Negative mg/dL (Negative) 07/08/20 10:54 Digoxin 0.62 ng/mL (0.90-2.00) L 07/08/20 10:34
[2020-07-08] MEDS: POTASSIUM CHLORIDE 20 MEQ/100 ML BAG 50 MEQ IVPB ×2 (13:22→15:58)
[2020-07-08] MEDS: CEFEPIME 2 GM in Normal Saline 100 ML IVPB ×2 (14:10→22:00)
[2020-07-08] MEDS: VANCOMYCIN 750 MG in Normal Saline 250 ML 166.6666 MG IVPB (15:08)
[2020-07-08 16:01] VITALS: BP 133/56; PULSE 89; RESP 17; TEMP 36.7; O2SAT 95
[2020-07-08 17:15] LABS: BE (Venous) 10.1 mmol/L (-3-3); HCO3 (Venous) 34 mmol/L (23-28); O2 Sat (Venous) 51 % (70-80); TCO2 (Venous) 32 mmol/L (24-29); pCO2 (Venous) 46 mmHg (41-51); pH (Venous) 7.47 (7.31-7.41); pO2 (Venous) 27 mmHg
[2020-07-08] MEDS: Atorvastatin 40 MG TAB PO (19:42)
--- NOTE | 2020-07-08 21:31 | W.PM.PROGNOT ---
Date of Service Date of service: 07/08/20 Time of Service: 21:36 Assessment and Plan Assessment and plan (1) UTI (urinary tract infection): Status: Acute (2) Bullous dermatitis: Status: Acute Assessment and plan: pt refusing Bx at this time will try tomorrow on elliquis and plavix (3) Encephalopathy acute: Status: Acute (4) Lethargy: Status: Acute (5) Hx-TIA (transient ischemic attack): Status: Acute (6) Depression: Status: Chronic (7) MSSA bacteremia: Status: Acute (8) PAD (peripheral artery disease): Status: Acute (9) Atrial fibrillation: Status: Chronic (10) Diabetes mellitus type 2 in nonobese: Status: Acute (11) Above knee amputation of right lower extremity: Status: Acute (12) Acute on chronic anemia: Status: Acute (13) CHF (congestive heart failure): Status: Chronic (14) Open wound of left great toe: Status: Acute Assessment and plan: debrided adn dressed. using medihoney no acute infection. High prob of underlying osteo Subjective Subjective Interval history since last seen: left great toe is sharply debrided. down to the bone/exposed bone. no granulation tissue. surrounding tissue is intact. no bleeding. Bone does appear to be intact. does not have good pulses in foot. foot is warm and pink. no signs of active infection. culture taken doing medihoney QOD dressing changes. doubt this while heal. rash noted on left trunk. pt is refusing bx ta this time. will re-attempt in am Exam Const General: frail appearing, ill appearing and lethargic Nutritional Appearance: malnourished and obese Limitations: altered mental status Skin Rashes: rashes noted (bulses rash on left trunk. expanding per RN's) Other: 2-3mm ulcer at TMP junction rleft grat toe. done to bone. pt has no sensation Neuro Motor: movement abnormality noted, tremor and strength abnormal Extrem Other: s/p R BKA Objective Objective Clinical Data: Abnormal lab results 07/08/20 07/08/20 07/08/20 Range/Units 10:34 10:34 10:34 RBC (3.93-5.22) 10^6/uL Hgb (11.2-15.7) g/dL Hct (36.0-46.0) % MCV (80-95) fL MCHC (32.0-36.0) % RDW (11.7-14.6) % Absolute Lymphocytes (1.2-3.4) 10^3/uL VBG pH (7.31-7.41) VBG HCO3 (23-28) mmol/L VBG Total CO2 (24-29) mmol/L VBG O2 Saturation (70-80) % VBG Base Excess (-3-3) mmol/L Potassium 3.3 L (3.5-5.1) mmol/L BUN 39 H (7-18) mg/dL Creatinine 1.33 H (0.55-1.02) mg/dL Glucose 177 H (74-106) mg/dL AST 10 L (15-37) U/L ALT 6 L (14-59) U/L Ammonia < 10 L (11-32) umol/L C-Reactive Protein 9.98 H (0.0-0.3) mg/dL Albumin 2.8 L (3.4-5.0) g/dL Urine Protein (Negative) mg/dL Urine Blood (Negative) Ur Leukocyte Esterase (Negative) Urine WBC (0-5) HPF Digoxin 0.62 L (0.90-2.00) ng/mL 07/08/20 07/08/20 07/08/20 Range/Units 10:34 10:54 16:00 RBC 2.84 L (3.93-5.22) 10^6/uL Hgb 8.4 L (11.2-15.7) g/dL Hct 27.3 L (36.0-46.0) % MCV 96.1 H (80-95) fL MCHC 30.8 L (32.0-36.0) % RDW 17.6 H (11.7-14.6) % Absolute Lymphocytes 0.68 L (1.2-3.4) 10^3/uL VBG pH 7.47 H (7.31-7.41) VBG HCO3 34 H (23-28) mmol/L VBG Total CO2 32 H (24-29) mmol/L VBG O2 Saturation 51 L (70-80) % VBG Base Excess 10.1 H (-3-3) mmol/L Potassium (3.5-5.1) mmol/L BUN (7-18) mg/dL Creatinine (0.55-1.02) mg/dL Glucose (74-106) mg/dL AST (15-37) U/L ALT (14-59) U/L Ammonia (11-32) umol/L C-Reactive Protein (0.0-0.3) mg/dL Albumin (3.4-5.0) g/dL Urine Protein Trace H (Negative) mg/dL Urine Blood Trace-intact H (Negative) Ur Leukocyte Esterase Large H (Negative) Urine WBC >50 H (0-5) HPF Digoxin (0.90-2.00) ng/mL Vital Signs Temperature 36.7 C 07/08/20 16:01 Temperature Source Tympanic 07/08/20 16:01 Pulse 89 07/08/20 16:01 Pulse Rhythm Regular 07/08/20 17:21 Respiratory Rate 17 07/08/20 16:01 Respiratory Effort Non-Labored 07/08/20 17:21 Respiratory Depth Normal 07/08/20 17:21 Respiratory Pattern Normal 07/08/20 17:21 Blood Pressure 133/56 L 07/08/20 16:01 Pulse Oximetry 95 07/08/20 16:01 Oxygen Delivery Method Room Air 07/08/20 16:01 Oxygen Flow Rate 0 07/08/20 16:01 Pain Level 0 07/08/20 16:01 Comment 07/07/20 21:00 Intake & Output 07/07/20 07/08/20 07/08/20 23:59 11:59 23:59 Intake Total 590 / 1000 550 / 550 Output Total 300 / 300 Balance 590 / 1000 250 / 250 Intake: IV 100 / 150 550 / 550 Oral 490 / 850 Output: Urine 300 / 300 Other: Urine Color Yellow Dark Martha Urine Appearance Cloudy Purulent Urine Odor Strong Comment incontinent, large amount brief was full Dr. Reddy wanted a sample for a UA, she ordered by catheterization if needed to get a clean sample, se text under misc order for description Stool Size Smear Smear Stool Characteristics Soft Soft Formed Voiding Methods Diaper Diaper Diaper Incontinent Laboratory Results WBC 8.25 10^3/uL (4.4-10.8) 07/08/20 10:34 RBC 2.84 10^6/uL (3.93-5.22) L 07/08/20 10:34 Hgb 8.4 g/dL (11.2-15.7) L 07/08/20 10:34 Hct 27.3 % (36.0-46.0) L 07/08/20 10:34 MCV 96.1 fL (80-95) H 07/08/20 10:34 MCH 29.6 pg (27.0-33.0) 07/08/20 10:34 MCHC 30.8 % (32.0-36.0) L 07/08/20 10:34 RDW 17.6 % (11.7-14.6) H 07/08/20 10:34 Plt Count 334 10^3/uL (130-400) 07/08/20 10:34 MPV 8.3 fL (8.0-11.0) 07/08/20 10:34 Immature Gran % 1.1 07/08/20 10:34 Neutrophils % 77.3 07/08/20 10:34 Lymphocytes % 8.2 07/08/20 10:34 Monocytes % 8.8 07/08/20 10:34 Eosinophils % 4.2 07/08/20 10:34 Basophils % 0.4 07/08/20 10:34 Absolute Neutrophils 6.37 10^3/uL (1.2-6.7) 07/08/20 10:34 Absolute Lymphocytes 0.68 10^3/uL (1.2-3.4) L 07/08/20 10:34 Absolute Monocytes 0.73 10^3/uL (0.1-0.8) 07/08/20 10:34 Absolute Eosinophils 0.35 10^3/uL (0.0-0.7) 07/08/20 10:34 Absolute Basophils 0.03 10^3/uL (0.0-0.2) 07/08/20 10:34 RBC Morphology See below 06/29/20 06:05 Polychromasia Present 06/29/20 06:05 Hypochromasia 1+ 06/29/20 06:05 Basophilic Stippling Present 06/29/20 06:05 Anisocytosis 2+ 06/29/20 06:05 Microcytosis 1+ 06/29/20 06:05 Macrocytosis 1+ 06/29/20 06:05 VBG pH 7.47 (7.31-7.41) H 07/08/20 16:00 VBG pCO2 46 mmHg (41-51) 07/08/20 16:00 VBG pO2 27 mmHg 07/08/20 16:00 VBG HCO3 34 mmol/L (23-28) H 07/08/20 16:00 VBG Total CO2 32 mmol/L (24-29) H 07/08/20 16:00 VBG O2 Saturation 51 % (70-80) L 07/08/20 16:00 VBG Base Excess 10.1 mmol/L (-3-3) H 07/08/20 16:00 Sodium 139 mmol/L (136-145) 07/08/20 10:34 Potassium 3.3 mmol/L (3.5-5.1) L 07/08/20 10:34 Chloride 99 mmol/L (98-107) 07/08/20 10:34 Carbon Dioxide 31.6 mmol/L (21.0-32.0) 07/08/20 10:34 Anion Gap 8.4 mmol/L (3-11) 07/08/20 10:34 BUN 39 mg/dL (7-18) H 07/08/20 10:34 Creatinine 1.33 mg/dL (0.55-1.02) H 07/08/20 10:34 Estimated GFR/1.73 m2 38.79 (mL/min/1.73m2) 07/08/20 10:34 Glucose 177 mg/dL (74-106) H 07/08/20 10:34 Calcium 9.6 mg/dL (8.5-10.1) 07/08/20 10:34 Magnesium 1.8 mg/dL (1.8-2.4) 07/08/20 10:34 Total Bilirubin 0.2 mg/dL (0.2-1.0) 07/08/20 10:34 Conjugated Bilirubin 0.10 mg/dL (0.00-0.20) 07/08/20 10:34 AST 10 U/L (15-37) L 07/08/20 10:34 ALT 6 U/L (14-59) L 07/08/20 10:34 Alkaline Phosphatase 111 U/L (46-116) 07/08/20 10:34 Ammonia < 10 umol/L (11-32) L 07/08/20 10:34 C-Reactive Protein 9.98 mg/dL (0.0-0.3) H 07/08/20 10:34 Total Protein 6.8 g/dL (6.4-8.2) 07/08/20 10:34 Albumin 2.8 g/dL (3.4-5.0) L 07/08/20 10:34 25-OH Vitamin D Total 11.7 ng/ml (30-100) L 07/03/20 06:25 Procalcitonin 0.1 ng/mL 07/05/20 06:45 TSH 4.53 uIU/mL (0.36-3.74) H 07/03/20 06:25 Free T4 1.01 ng/dL (0.76-1.46) 07/03/20 06:25 Urine Color Yellow (Yellow) 07/08/20 10:54 Urine Clarity Cloudy (Clear) 07/08/20 10:54 Urine pH 5.5 (5-8) 07/08/20 10:54 Ur Specific [place] 1.015 (1.005-1.025) 07/08/20 10:54 Urine Protein Trace mg/dL (Negative) H 07/08/20 10:54 Urine Ketones Negative mg/dL (Negative) 07/08/20 10:54 Urine Blood Trace-intact (Negative) H 07/08/20 10:54 Urine Nitrite Negative (Negative) 07/08/20 10:54 Urine Bilirubin Negative (Negative) 07/08/20 10:54 Urine Urobilinogen 0.2 EU/dL (Up TO 0.2) 07/08/20 10:54 Ur Leukocyte Esterase Large (Negative) H 07/08/20 10:54 Urine RBC 0-2 HPF (0-2) 07/08/20 10:54 Urine WBC >50 HPF (0-5) H 07/08/20 10:54 Ur Epithelial Cells Few HPF (Negative) 07/08/20 10:54 Urine Crystals Negative HPF (Negative) 07/08/20 10:54 Urine Bacteria Many HPF (Negative) 07/08/20 10:54 Urine Casts Negative LPF (Negative) 07/08/20 10:54 Urine Mucus Negative (Negative) 07/08/20 10:54 Ur Culture Indicated? Yes 07/08/20 10:54 Urine Glucose Negative mg/dL (Negative) 07/08/20 10:54 Digoxin 0.62 ng/mL (0.90-2.00) L 07/08/20 10:34
[2020-07-08] MEDS: Normal Saline Flush 10 ML SYR IVP (22:00)
[2020-07-08] MEDS: dilTIAZem CD 120 MG CAPCR 240 MG PO (22:00)
[2020-07-08] MEDS: Melatonin 3 MG TAB PO (22:00)
[2020-07-09] MEDS: Levothyroxine 25 MCG TAB PO (05:31)
[2020-07-09] MEDS: Normal Saline Flush 10 ML SYR IVP ×2 (05:31→21:18)
[2020-07-09] MEDS: CEFEPIME 2 GM in Normal Saline 100 ML IVPB ×3 (05:32→21:19)
[2020-07-09 08:22] LABS: Abs Immature Grans 0.09 10^3/uL (0.0-0.06); Absolute Basophil Count 0.03 10^3/uL (0.0-0.2); Absolute Lymphocyte Count 0.63 10^3/uL (1.2-3.4); Absolute Monocyte Count 0.69 10^3/uL (0.1-0.8); Absolute Neutrophil Count 4.73 10^3/uL (1.2-6.7); Basophils % 0.5; Eosinophils % 6.1; HCT 25.2 % (36.0-46.0); HGB 7.9 g/dL (11.2-15.7); Immature Grans % 1.4; Lymphocytes % 9.6; MCHC 31.3 % (32.0-36.0); MCV 95.8 fL (80-95); MPV 8.9 fL (8.0-11.0); Monocytes % 10.5; Neutrophils % 71.9; Nucleated RBC 1 %; Platelet Count 330 10^3/uL (130-400); RBC 2.63 10^6/uL (3.93-5.22); RDW 17.7 % (11.7-14.6); RDW-SD 60.9 fL; WBC 6.57 10^3/uL (4.4-10.8)
[2020-07-09 08:24] LABS: Anion Gap 5.9 mmol/L (3-11); BUN 37 mg/dL (7-18); C-Reactive Protein 8.21 mg/dL (0.0-0.3); CO2 32.1 mmol/L (21.0-32.0); CREATININE 1.12 mg/dL (0.55-1.02); Calcium 9.3 mg/dL (8.5-10.1); Chloride 100 mmol/L (98-107); Glucose 125 mg/dL (74-106); Magnesium 1.7 mg/dL (1.8-2.4); Potassium 3.6 mmol/L (3.5-5.1); Sodium 138 mmol/L (136-145)
[2020-07-09] MEDS: Polyethylene Glycol 3350 17 GM PACKET PO (08:38)
[2020-07-09] MEDS: Pantoprazole 20 MG TABCR PO (08:38)
[2020-07-09] MEDS: Clopidogrel 75 MG TAB PO (08:38)
[2020-07-09] MEDS: Insulin Aspart 300 UNITS/3 ML PEN SC ×3 (08:38→16:54)
[2020-07-09] MEDS: Apixaban 5 MG TAB PO ×2 (08:38→19:52)
[2020-07-09] MEDS: Allopurinol 100 MG TAB PO (08:38)
[2020-07-09 08:39] LABS: Anisocytosis 1+; Diff Comment RBC Morph Reviewed; Hypochromasia 1+; Polychromasia Present
[2020-07-09] MEDS: Fluticasone NASAL SPRAY 16 GM BTL NS (08:39)
[2020-07-09] MEDS: Nystatin POWDER 15 GM JAR TP ×2 (08:39→19:54)
[2020-07-09] MEDS: Beta-Carotene(A) w/C,E, & Minerals TAB PO (08:39)
[2020-07-09] MEDS: Diclofenac 1% Gel 100 GM TUBE TP ×4 (08:39→19:55)
[2020-07-09] MEDS: Digoxin 0.125 MG TAB 0.0625 MG PO (08:39)
[2020-07-09 08:40] LABS: Poikilocytes 2+
[2020-07-09] MEDS: DULoxetine 30 MG CAP 60 MG PO (08:40)
[2020-07-09] MEDS: Gabapentin 300 MG CAP PO ×2 (08:40→19:52)
[2020-07-09] MEDS: Metoprolol CR 100 MG TABCR 200 MG PO (08:40)
[2020-07-09] MEDS: Potassium Chloride 20 MEQ TABCR PO (08:40)
--- NOTE | 2020-07-09 08:59 | PDOC.CMPRO ---
Care Management Progress Note Surgical consult for skin biopsy-left breast, Dr. Murray debrided toe; shared concern for possible osteo; Sunshine will follow up with Vascular. Found to have new UTI with increased confusion; now on additional IV ABX; mentation cleared. Per MD, if UTI can be managed with oral antibiotics, Sunshine may be able to return to [facility] as soon as tomorrow, 07/10/20.
[2020-07-09 09:08] VITALS: BP 117/62; PULSE 86; RESP 18; TEMP 36.6; O2SAT 100
[2020-07-09] MEDS: Tiotropium Bromide-Respimat 10 PUFF INH 2 PUFF IH (09:47)
--- NOTE | 2020-07-09 10:14 | PT.INTREAT ---
Date of service: 07/09/20 Time of Service: 10:14 PT Notes Visit Reasons: MSSA INFECTION 07/09/2020 SUBJECTIVE: Sunshine stating she is doing well today. She complains that her muscles feel jumpy today. OBJECTIVE: Supine in bed. Agreeable to PT. TRANSFERS/GAIT: N/A THEREX: SKilled instruction provided for intrinsic core and general UE/LE strengthening. See flow sheet. ASSESSMENT: Doing well with her strengthening. Added in 2# weights for LE's with good tolerance. Less rest required in between exercises. PLAN: Continue current POC. Treatment time: 15' [id number] Ewa Goins PTA Clinic location: [facility] [place], [place]
[2020-07-09] MEDS: MAGNESIUM SULFATE 2 GM/50 ML BAG IVPB (10:40)
[2020-07-09] MEDS: VANCOMYCIN 750 MG in Normal Saline 250 ML 167 MG IVPB (10:40)
[2020-07-09] MEDS: Acetaminophen 325 MG TAB 650 MG PO (11:47)
--- NOTE | 2020-07-09 16:40 | SKI_PTH ---
PATIENT: HUI FERRER LOC: [id number] AGE/SX: 75/F ROOM: [id number] RE06/28/[address]: Lanre Coleman : 1945 BED: A DIS: 07/14/2020 SPEC #: [id number] RECD: 07/10/20 12:19 STATUS: MATTHEW RELuigi #: [id number] AVANI: 07/09/20 16:[address]: Lanre Coleman DEPT: Surgical Specimen RECD BY: Shannan Aquino ENTERED: 07/10/20 12:20 SP TYPE: RAMONA RESTREPO DR: Josephine Almodovar Tiffany InPatient Dan Wyand Tissues: 1 - SKIN BIOPSY(SHAVE/PUNCH) Procedures: SKIN LEVEL 4 Comments: [id number]
[2020-07-09] MEDS: Atorvastatin 40 MG TAB PO (19:52)
--- NOTE | 2020-07-09 20:43 | ROE_ITS ---
Date of service: 07/09/20 Time of Service: 20:43 Operative Note Operative Note DATE OF PROCEDURE: 07/09/20 PRE-OP DIAGNOSIS: skin bx left torso/flank POST-OP DIAGNOSIS: same PROCEDURE: full thickness skin bx SURGEON: Awilda Murray ANESTHESIA: local ESTIMATED BLOOD LOSS: 1 Patient was transported to: no change Patient's condition: stable Procedure Description: Skin biopsy was requested by the hospitalist service to r ule out pemphigus. Patient is on blood thinners. She has developed a blistering type rash in the area of the left inframammary fold abdomen left flank area she is on blood thinners. She is on multiple antibiotics. Informed consent is obtained explaining risks and benefits of the procedure including not limited to: Bleeding, infection, scarring, need for more tissue, and other unforetold complications. Patient remained in the room. The areas prepped draped you sterile fashion using ChloraPrep scrub solution so we will treat with 7 cc of 1% epinephrine with lidocaine. 5 mm full-thickness skin biopsy is done. it Is closed with 2 stitches of 3-0 nylon. Minimal bleeding is noted. Sterile compression dressing is applied. Patient have sterile cell complication use ice for pain. Specimen is sent to path pathology with all requisite paperwork. Patient remained in her room throughout the entirety of the procedure and tolerated it well.
[2020-07-09] MEDS: dilTIAZem CD 120 MG CAPCR 240 MG PO (21:17)
[2020-07-09] MEDS: Melatonin 3 MG TAB PO (21:18)
[2020-07-10 00:19] VITALS: BP 137/61; PULSE 89; RESP 18; TEMP 36.9; O2SAT 95
[2020-07-10] MEDS: Normal Saline Flush 10 ML SYR IVP ×5 (03:09→22:32)
[2020-07-10] MEDS: VANCOMYCIN 750 MG in Normal Saline 250 ML 167 MG IVPB ×2 (03:10→22:32)
[2020-07-10] MEDS: Levothyroxine 25 MCG TAB PO (05:07)
[2020-07-10] MEDS: CEFEPIME 2 GM in Normal Saline 100 ML IVPB ×3 (05:08→21:27)
[2020-07-10 06:59] LABS: Abs Immature Grans 0.13 10^3/uL (0.0-0.06); Absolute Basophil Count 0.03 10^3/uL (0.0-0.2); Absolute Eosinophil Count 0.27 10^3/uL (0.0-0.7); Absolute Lymphocyte Count 0.68 10^3/uL (1.2-3.4); Absolute Monocyte Count 0.55 10^3/uL (0.1-0.8); Absolute Neutrophil Count 3.98 10^3/uL (1.2-6.7); Basophils % 0.5; Eosinophils % 4.8; HCT 24.6 % (36.0-46.0); HGB 7.5 g/dL (11.2-15.7); Immature Grans % 2.3; Lymphocytes % 12.1; MCH 29.1 pg (27.0-33.0); MCHC 30.5 % (32.0-36.0); MCV 95.3 fL (80-95); MPV 8.7 fL (8.0-11.0); Monocytes % 9.8; Neutrophils % 70.5; Nucleated RBC 0 %; Platelet Count 280 10^3/uL (130-400); RBC 2.58 10^6/uL (3.93-5.22); RDW 17.7 % (11.7-14.6); RDW-SD 61.3 fL; WBC 5.64 10^3/uL (4.4-10.8)
[2020-07-10 07:13] VITALS: BP 150/76; PULSE 67; RESP 18; TEMP 36.4; O2SAT 99
[2020-07-10 07:19] LABS: Anion Gap 7.9 mmol/L (3-11); BUN 34 mg/dL (7-18); C-Reactive Protein 5.59 mg/dL (0.0-0.3); CO2 28.1 mmol/L (21.0-32.0); CREATININE 1.09 mg/dL (0.55-1.02); Chloride 104 mmol/L (98-107); Glucose 129 mg/dL (74-106); Magnesium 2.2 mg/dL (1.8-2.4); Potassium 3.7 mmol/L (3.5-5.1); Sodium 140 mmol/L (136-145)
[2020-07-10] MEDS: Tiotropium Bromide-Respimat 10 PUFF INH 2 PUFF IH (07:33)
[2020-07-10] MEDS: Fluticasone NASAL SPRAY 16 GM BTL NS (08:48)
[2020-07-10] MEDS: Polyethylene Glycol 3350 17 GM PACKET PO (08:48)
[2020-07-10] MEDS: Diclofenac 1% Gel 100 GM TUBE TP ×4 (08:48→19:58)
[2020-07-10] MEDS: DULoxetine 30 MG CAP 60 MG PO (08:48)
[2020-07-10 08:49] VITALS: PULSE 67
[2020-07-10] MEDS: Metoprolol CR 100 MG TABCR 200 MG PO (08:49)
[2020-07-10] MEDS: Digoxin 0.125 MG TAB 0.0625 MG PO (08:49)
[2020-07-10] MEDS: Beta-Carotene(A) w/C,E, & Minerals TAB PO (08:49)
[2020-07-10] MEDS: Pantoprazole 20 MG TABCR PO (08:50)
[2020-07-10] MEDS: Allopurinol 100 MG TAB PO (08:50)
[2020-07-10] MEDS: Potassium Chloride 20 MEQ TABCR PO (08:50)
[2020-07-10] MEDS: Clopidogrel 75 MG TAB PO (08:50)
[2020-07-10] MEDS: Gabapentin 300 MG CAP PO ×2 (08:50→19:56)
[2020-07-10] MEDS: Apixaban 5 MG TAB PO ×2 (08:50→19:56)
[2020-07-10] MEDS: Nystatin POWDER 15 GM JAR TP ×2 (08:52→19:57)
[2020-07-10] MEDS: Acetaminophen 325 MG TAB 650 MG PO ×2 (09:11→17:17)
[2020-07-10] MEDS: diphenhydrAMINE 25 MG CAP PO (09:12)
--- NOTE | 2020-07-10 09:23 | OTTR_ITS ---
Date of service: 07/10/20 Time of Service: 07:45 Occupational Therapy Notes Occupational Therapy Inpatient Treatment Note Date: 07/10/20 PRECAUTIONS: Fall, Standard, DNR/DNI SUBJECTIVE: Pt was sitting in bed when OT arrived. She states that she slept okay last night. She is happy and pleasant eager to perform her ADLs this morning. She states that she believes she is leaving today. OBJECTIVE: PAIN:no c/o pain BATHING: Sitting in bed with max (A) set up/clean up Upper Body: (I) with face, min vc and (A) for underarms (B), min vc for abdomen, min (A) with hair Lower Body: Max (A) (L) LE DRESSING: Sitting in bed Upper Extremity: (I) don and doffing [facility] gown Lower Extremity: Min (A) don and doffing (L) sock GROOMING: (I) with brushing hair ASSESSMENT/PLAN: Pt was more alert and oriented today, she has no c/o pain and was receptive to performance of her ADLs. Pt requires (A) with her (L) LE and min vc throughout. She is demonstrating decreased pain which has increased her functional (I). She can bend her (L) leg up for performance of sock and bathing but this is dependent on her pain level. Today she ws fatigued post donning her sock which required increased performance time. TREATMENT CODES/TIME: 36223, 20 minutes (07:45) Yue Lala, OTR/L [facility]
[2020-07-10] MEDS: Ergocalciferol 50000 UNITS CAP PO (11:21)
[2020-07-10] MEDS: Fosfomycin Tromethamine 3 GM PACKET PO (11:22)
[2020-07-10] MEDS: Insulin Aspart 300 UNITS/3 ML PEN SC ×2 (11:42→17:17)
--- NOTE | 2020-07-10 16:36 | PT.INTREAT ---
Date of service: 07/10/20 Time of Service: 16:36 PT Notes Visit Reasons: MSSA INFECTION Inpatient Physical Therapy Treatment Note [facility] Date: 07/10/2020 PRECAUTIONS: Fall. Standard. Activity as tolerated. SUBJECTIVE: Sunshine and her daughter Yennifer are not sure if Sunshine is going back to the SNF today. Yennifer is not aware that skin biopsy was taken the prior day and she is very much curious as to how the findings from said procedure will affect discharge plan for her mother. Both Sunshine and Yennifer are agreeable to warpping residula limb would like to make sure that said wrapping is continued once her mom goes back to the senior care. OBJECTIVE: Sunshine is seen resting in bed. New open area is seen on the middle dorsal medial aspect of her right forearm which, according to nurse Johnson, was from Sunshine scratching herself. Right residual limb dressing nearly out of place. Patient also has a new reddened area over the proximal medial right thigh near the groin area which the nurse is aware of. PAIN: Sunshine complains of minimal pain in residual limb and back. BED MOBILITY/TRANSFERS Rolling L/R: Contact-guard assist PT Intervention: Patient today consisted of providing assistance with nurse Johnson with wound redressing and provision of sandra-care patient after bowel movement. Patient was then rewrapped appropriately using two 6-inch wide ELVA wraps and one 4-inch wide ELVA wrap while working on improving independence with rolling side to side using the bed rail for support with patient only acquiring minimal assist. With sandra-care provided and with Lembert wrapping the patient was able to 8-10 rolls on each side without significant pain complaint. Patient was then engaged with performing bed level exercises consisting of bridging activity with 5-second hold x5 5 reps for 3 sets with a pillow provided under the residual limb to allow for hip extension resistance. Patient went on performing alternate up extremity and lower extremity exercises consisting of trapeze pull-ups x10 reps for 2 sets straight leg raises on the left lower extremity with 2 pound weight on times and reps, and hip abduction with 2 pound ankle weights x10 reps. Adequate rest patient tolerated residual limb exercises consisting of hip flexion x 10 and hip abduction x10. ASSESSMENT: Patient demonstrates better pain control today and increased tolerance for bed level exercises. Movement is becoming more efficient with minimal verbal cueing needed. Exacerbation of pain with mobility has been a little today compared to the prior days. Right residual limb swelling has considerably diminished with erythema significantly improved. PLAN: Continue with PT POC emphasizing core strengthening, slide board transferring, and right residual limb shaping in preparation for prosthetic fitting. TREATMENT CODE/TIME: Session 1??31525 x 21 minutes, 24552 x 25 minutes beginning at 9:15 AM. Session 2??[id number] x 10 minutes beginning at 16:36 PM.
--- NOTE | 2020-07-10 18:40 | PGE_ITS ---
Date of Service Date of service: 07/10/20 Time of Service: 18:40 Subjective Subjective Interval history since last seen: Sunshine is seen in her room at bedside. She is awake and alert although weepy at the thought of losing her toes and/or leg on the left lower extremity. She denies any pain in her left foot. Exam Narrative Exam Narrative: The left foot is warm to the touch although pulses are nonpalpable manually at the ankle. The great toe is pink in appearance with capillary return sluggish. Ulceration is noted dorsally on the hallux which was recently debrided by Dr. Murray. The wound has congealed bloody material within it and appears relatively clean. I did not probe it at this time. Vascular studies had been previously performed at [facility] March 30, 2020. The left dorsalis pedis PATRICIA 0.72, posterior tibial artery PATRICIA 0.80 monophasic waveforms. Left great toe pressure was 41 with a TBI of 0.31. Left chest TC PO2 65. Vascular interpretation mild lower extremity arterial occlusive disease to the ankle level. Toe brachial index substantially lower than the PATRICIA indicates presence of moderately severe arterial occlusive disease in the foot. An incidental finding of a fracture at the base of the proximal phalanx of the second toe is appreciated on radiographs that were ordered previously. No active treatment is necessary for this injury and no precautions are required. 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 I did discuss the case with Dr. Reddy and I did indicate I would like to see a new blood flow studies of the left lower extremity with TC PO2 levels from the great toe. Once we have a better understanding of her vascular status it will allow us to proceed in more definitive fashion in terms of continuing with local wound care if she has sufficient blood flow to heal this wound versus limited amputation. Success of treatment will be dependent upon vascular status. We will be happy to continue to follow. Objective Objective Clinical Data: Abnormal lab results 07/10/20 07/10/20 Range/Units 06:20 06:20 RBC 2.58 L (3.93-5.22) 10^6/uL Hgb 7.5 L (11.2-15.7) g/dL Hct 24.6 L (36.0-46.0) % MCV 95.3 H (80-95) fL MCHC 30.5 L (32.0-36.0) % RDW 17.7 H (11.7-14.6) % Absolute Lymphocytes 0.68 L (1.2-3.4) 10^3/uL BUN 34 H (7-18) mg/dL Creatinine 1.09 H (0.55-1.02) mg/dL Glucose 129 H (74-106) mg/dL C-Reactive Protein 5.59 H (0.0-0.3) mg/dL Vital Signs Temperature 36.4 C L 07/10/20 07:13 Temperature Source Temporal Artery Scan 07/10/20 07:13 Pulse 67 07/10/20 08:49 Pulse Rhythm Irregular 07/10/20 17:25 Respiratory Rate 18 07/10/20 07:13 Respiratory Effort Non-Labored 07/10/20 17:25 Respiratory Depth Normal 07/10/20 17:25 Respiratory Pattern Normal 07/10/20 17:25 Blood Pressure 150/76 H 07/10/20 07:13 Pulse Oximetry 99 07/10/20 07:13 Oxygen Delivery Method Room Air 07/10/20 07:13 Oxygen Flow Rate 0 07/10/20 07:13 Pain Level 4 07/10/20 17:17 Comment 07/07/20 21:00 Intake & Output 07/09/20 07/10/20 07/10/20 18:59 06:59 18:59 Intake Total 1000 / 1300 300 / 1300 710 / 710 Balance 1000 / 1300 300 / 1300 710 / 710 Weight 66.5 kg Intake: IV 400 / 700 300 / 700 100 / 100 Oral 600 / 600 610 / 610 Other: Urine Color Yellow Urine Appearance Cloudy Cloudy Comment incontinent incontinent. Stool Size Small Moderate Moderate Stool Characteristics Soft Soft Formed Formed Voiding Methods Incontinent Incontinent Laboratory Results WBC 5.64 10^3/uL (4.4-10.8) 07/10/20 06:20 RBC 2.58 10^6/uL (3.93-5.22) L 07/10/20 06:20 Hgb 7.5 g/dL (11.2-15.7) L 07/10/20 06:20 Hct 24.6 % (36.0-46.0) L 07/10/20 06:20 MCV 95.3 fL (80-95) H 07/10/20 06:20 MCH 29.1 pg (27.0-33.0) 07/10/20 06:20 MCHC 30.5 % (32.0-36.0) L 07/10/20 06:20 RDW 17.7 % (11.7-14.6) H 07/10/20 06:20 Plt Count 280 10^3/uL (130-400) 07/10/20 06:20 MPV 8.7 fL (8.0-11.0) 07/10/20 06:20 Immature Gran % 2.3 07/10/20 06:20 Neutrophils % 70.5 07/10/20 06:20 Lymphocytes % 12.1 07/10/20 06:20 Monocytes % 9.8 07/10/20 06:20 Eosinophils % 4.8 07/10/20 06:20 Basophils % 0.5 07/10/20 06:20 Absolute Neutrophils 3.98 10^3/uL (1.2-6.7) 07/10/20 06:20 Absolute Lymphocytes 0.68 10^3/uL (1.2-3.4) L 07/10/20 06:20 Absolute Monocytes 0.55 10^3/uL (0.1-0.8) 07/10/20 06:20 Absolute Eosinophils 0.27 10^3/uL (0.0-0.7) 07/10/20 06:20 Absolute Basophils 0.03 10^3/uL (0.0-0.2) 07/10/20 06:20 RBC Morphology See below 07/09/20 06:50 Polychromasia Present 07/09/20 06:50 Hypochromasia 1+ 07/09/20 06:50 Poikilocytosis 2+ 07/09/20 06:50 Basophilic Stippling Present 06/29/20 06:05 Anisocytosis 1+ 07/09/20 06:50 Microcytosis 1+ 06/29/20 06:05 Macrocytosis 1+ 06/29/20 06:05 ABG Sample Site Cancelled 07/08/20 16:27 ABG pH Cancelled 07/08/20 16:27 ABG pCO2 Cancelled 07/08/20 16:27 ABG pO2 Cancelled 07/08/20 16:27 ABG HCO3 Cancelled 07/08/20 16:27 ABG Total CO2 Cancelled 07/08/20 16:27 ABG O2 Saturation Cancelled 07/08/20 16:27 ABG Base Excess Cancelled 07/08/20 16:27 VBG pH 7.47 (7.31-7.41) H 07/08/20 16:00 VBG pCO2 46 mmHg (41-51) 07/08/20 16:00 VBG pO2 27 mmHg 07/08/20 16:00 VBG HCO3 34 mmol/L (23-28) H 07/08/20 16:00 VBG Total CO2 32 mmol/L (24-29) H 07/08/20 16:00 VBG O2 Saturation 51 % (70-80) L 07/08/20 16:00 VBG Base Excess 10.1 mmol/L (-3-3) H 07/08/20 16:00 Oxygen Liter Flow Cancelled 07/08/20 16:27 FiO2 Cancelled 07/08/20 16:27 Sodium 140 mmol/L (136-145) 07/10/20 06:20 Potassium 3.7 mmol/L (3.5-5.1) 07/10/20 06:20 Chloride 104 mmol/L (98-107) 07/10/20 06:20 Carbon Dioxide 28.1 mmol/L (21.0-32.0) 07/10/20 06:20 Anion Gap 7.9 mmol/L (3-11) 07/10/20 06:20 BUN 34 mg/dL (7-18) H 07/10/20 06:20 Creatinine 1.09 mg/dL (0.55-1.02) H 07/10/20 06:20 Estimated GFR/1.73 m2 48.80 (mL/min/1.73m2) 07/10/20 06:20 Glucose 129 mg/dL (74-106) H 07/10/20 06:20 Calcium 9.0 mg/dL (8.5-10.1) 07/10/20 06:20 Magnesium 2.2 mg/dL (1.8-2.4) 07/10/20 06:20 Total Bilirubin 0.2 mg/dL (0.2-1.0) 07/08/20 10:34 Conjugated Bilirubin 0.10 mg/dL (0.00-0.20) 07/08/20 10:34 AST 10 U/L (15-37) L 07/08/20 10:34 ALT 6 U/L (14-59) L 07/08/20 10:34 Alkaline Phosphatase 111 U/L (46-116) 07/08/20 10:34 Ammonia < 10 umol/L (11-32) L 07/08/20 10:34 C-Reactive Protein 5.59 mg/dL (0.0-0.3) H 07/10/20 06:20 Total Protein 6.8 g/dL (6.4-8.2) 07/08/20 10:34 Albumin 2.8 g/dL (3.4-5.0) L 07/08/20 10:34 25-OH Vitamin D Total 11.7 ng/ml (30-100) L 07/03/20 06:25 Procalcitonin 0.1 ng/mL 07/05/20 06:45 TSH 4.53 uIU/mL (0.36-3.74) H 07/03/20 06:25 Free T4 1.01 ng/dL (0.76-1.46) 07/03/20 06:25 Urine Color Yellow (Yellow) 07/08/20 10:54 Urine Clarity Cloudy (Clear) 07/08/20 10:54 Urine pH 5.5 (5-8) 07/08/20 10:54 Ur Specific [place] 1.015 (1.005-1.025) 07/08/20 10:54 Urine Protein Trace mg/dL (Negative) H 07/08/20 10:54 Urine Ketones Negative mg/dL (Negative) 07/08/20 10:54 Urine Blood Trace-intact (Negative) H 07/08/20 10:54 Urine Nitrite Negative (Negative) 07/08/20 10:54 Urine Bilirubin Negative (Negative) 07/08/20 10:54 Urine Urobilinogen 0.2 EU/dL (Up TO 0.2) 07/08/20 10:54 Ur Leukocyte Esterase Large (Negative) H 07/08/20 10:54 Urine RBC 0-2 HPF (0-2) 07/08/20 10:54 Urine WBC >50 HPF (0-5) H 07/08/20 10:54 Ur Epithelial Cells Few HPF (Negative) 07/08/20 10:54 Urine Crystals Negative HPF (Negative) 07/08/20 10:54 Urine Bacteria Many HPF (Negative) 07/08/20 10:54 Urine Casts Negative LPF (Negative) 07/08/20 10:54 Urine Mucus Negative (Negative) 07/08/20 10:54 Ur Culture Indicated? Yes 07/08/20 10:54 Urine Glucose Negative mg/dL (Negative) 07/08/20 10:54 Digoxin 0.62 ng/mL (0.90-2.00) L 07/08/20 10:34
[2020-07-10] MEDS: Atorvastatin 40 MG TAB PO (19:56)
[2020-07-10] MEDS: Normal Saline 500 ML 30 ML IV (21:26)
[2020-07-10] MEDS: dilTIAZem CD 120 MG CAPCR 240 MG PO (21:28)
[2020-07-10] MEDS: Melatonin 3 MG TAB PO (21:29)
[2020-07-11] MEDS: Levothyroxine 25 MCG TAB PO (06:06)
[2020-07-11] MEDS: CEFEPIME 2 GM in Normal Saline 100 ML IVPB ×2 (06:06→14:37)
[2020-07-11] MEDS: Tiotropium Bromide-Respimat 10 PUFF INH 2 PUFF IH (07:25)
[2020-07-11] MEDS: Normal Saline Flush 10 ML SYR IVP ×3 (07:31→16:44)
[2020-07-11 07:54] VITALS: BP 165/79; PULSE 74; RESP 15; TEMP 35.9; O2SAT 96
[2020-07-11] MEDS: Fluticasone NASAL SPRAY 16 GM BTL NS (08:58)
[2020-07-11] MEDS: Beta-Carotene(A) w/C,E, & Minerals TAB PO (08:59)
[2020-07-11] MEDS: Diclofenac 1% Gel 100 GM TUBE TP ×4 (08:59→20:36)
[2020-07-11] MEDS: DULoxetine 30 MG CAP 60 MG PO (08:59)
[2020-07-11] MEDS: Metoprolol CR 100 MG TABCR 200 MG PO (08:59)
[2020-07-11] MEDS: Potassium Chloride 20 MEQ TABCR PO (09:04)
[2020-07-11] MEDS: Nystatin POWDER 15 GM JAR TP ×2 (09:04→20:34)
[2020-07-11 09:05] VITALS: PULSE 74
[2020-07-11] MEDS: Gabapentin 300 MG CAP PO ×2 (09:05→20:30)
[2020-07-11] MEDS: Apixaban 5 MG TAB PO ×2 (09:05→20:31)
[2020-07-11] MEDS: Pantoprazole 20 MG TABCR PO (09:05)
[2020-07-11] MEDS: Digoxin 0.125 MG TAB 0.0625 MG PO (09:05)
[2020-07-11] MEDS: Clopidogrel 75 MG TAB PO (09:05)
[2020-07-11] MEDS: Allopurinol 100 MG TAB PO (09:05)
--- NOTE | 2020-07-11 09:23 | OT.INTREAT ---
Date of service: 07/11/20 Time of Service: 09:05 Occupational Therapy Notes Occupational Therapy Inpatient Treatment Note Date: 07/11/20 PRECAUTIONS: Fall, Standard, DNR/DNI SUBJECTIVE: Pt was sitting in bed and agreeable to OT session. OBJECTIVE: PAIN:no c/o pain during OT session BATHING: Sitting in bed with max (A) Set up/clean up Upper Body: (I) with Upper body with min vc throughout Lower Body: (I) for (L) LE to knee with max (A) below knee and foot GROOMING: min vc for (B) hand use for brushing hair. She was able to hold mirror and comb TOILETING: Performed prior to OT session Device: Bed silva Assist: Max (A) ASSESSMENT/PLAN: Pt is demonstrating increased functional (I) in the seated position in bed, however she requires min vc and mod-max (A) for LE dressing and bathing. She is an active participant in her session in regards to functional (I). Her bed mobility is improving and she is less confused compared to other sessions. Will continue to work with pt on body awareness during ADL routines, adaptive equipment as needed with goal to progress pt to sitting on side of bed. TREATMENT CODES/TIME: 95013, 20 minutes (09:05) Yue Lala OTR/[facility]
[2020-07-11] MEDS: Insulin Aspart 300 UNITS/3 ML PEN SC (11:52)
--- NOTE | 2020-07-11 14:09 | CHAPLAIN ---
Clinical Coordinator asked me to visit with Sunshine. She was teary while telling me that Dr. Reddy said she may loose her second leg to amputation. At one point she said, what's the point of living without my legs, and later she said it will be very difficult without my legs. She said that she prayed that her first leg would not be amputated but that didn't work. We talked about life seeming unfair at times, and what a difficult year she's had. She has been hospitalized or at [facility] for nearly a year. She loved her apartment in [place] and is afraid she will never live there again. She spoke with her sister, who told to focus on the possibility of not losing her leg, and she called her daughter who drove down to visit her. Sunshine has also been unable to see her three greatgrand children because of COVID precautions and that saddens her. I will visit her again later today.
--- NOTE | 2020-07-11 14:13 | PGE_ITS ---
Date of Service Date of service: 07/11/20 Time of Service: 14:13 Assessment and Plan Assessment and plan (1) Diabetic foot ulcer: Status: Acute Assessment and plan: wound culture with Serratia, should be sensitive to cefepime, however, complicated by PAD. Vascular follow up is being arranged in the next 48-72 hours with possibility of amputation of the great toe. The patient will likely be addmitted to [facility] at that time. (2) PAD (peripheral artery disease): Status: Acute Assessment and plan: As above (3) UTI (urinary tract infection): Status: Acute Assessment and plan: Cx mixed, but does have enterobacter on one of the cultures. Theoretically, neither vanco nor cefepime would be effective against it, but the patient did get better. She is now also s/p 1 dose of fosfomycin. Will discuss how to downgrade therapy with ID. (4) Encephalopathy acute: Status: Resolved Assessment and plan: Likely due to the UTI. Significantly better with treatment of infection. (5) MSSA bacteremia: Status: Resolved Assessment and plan: Technically finished her course. (6) Bullous dermatitis: Status: Acute Assessment and plan: s/p skin bx. Continue topical corticosteroids. Will need outpatient dermatology appointment. Subjective Subjective Interval history since last seen: Case discussed with Dr Feliciano yesterday and Dr Jensen of vascular surgery at [facility] today. He will be arranging an outpatient appointment for the patient to have her angio and, depending on the course, possible amputation of her L great toe. She will likely get admitted to [facility], if this is the case. Vascular surgery will contact us with the appointment. The patient has a palpable popliteal pulse, but the pulses distal to that on her LLE are all only dopplerable. Exam Narrative Exam Narrative: General: elderly female, [place], A&Ox3, more alert, havi ng myoclonic jerks HEENT: EOMI, MMM Heart: not auscultated Lungs: nonlabored breathing Abdomen: nondistended Extremities: s/p R AKA, stump dressed. LLE with dressing on great toe. Great toe wound with purulent drainage. No pulses can be palpated below the level of popliteal A. Skin: Bullae under L breast look better. Objective Objective Clinical Data: Vital Signs Temperature 35.9 C L 08/11/20 07:54 Temperature Source Axillary 07/11/20 07:54 Pulse 74 07/11/20 09:05 Pulse Rhythm Irregular 07/11/20 10:35 Respiratory Rate 15 07/11/20 07:54 Respiratory Effort Non-Labored 07/11/20 10:35 Respiratory Depth Normal 07/11/20 10:35 Respiratory Pattern Normal 07/11/20 10:35 Blood Pressure 165/79 H 07/11/20 07:54 Pulse Oximetry 96 07/11/20 07:54 Oxygen Delivery Method Room Air 07/11/20 07:54 Oxygen Flow Rate 0 07/11/20 07:54 Pain Level 0 07/11/20 07:54 Comment 07/07/20 21:00 Intake & Output 07/10/20 07/11/20 07/11/20 23:59 11:59 23:59 Intake Total 690 / 1500 340 / 580 240 / 580 Balance 690 / 1500 340 / 580 240 / 580 Weight 67.4 kg Intake: IV 200 / 650 140 / 140 Oral 490 / 850 200 / 440 240 / 440 Other: Urine Color Yellow Urine Appearance Clear Urine Odor Normal Comment incontinent. Stool Size Small Small Stool Characteristics Soft Soft Formed Voiding Methods Diaper Diaper Incontinent Laboratory Results WBC 5.64 10^3/uL (4.4-10.8) 07/10/20 06:20 RBC 2.58 10^6/uL (3.93-5.22) L 07/10/20 06:20 Hgb 7.5 g/dL (11.2-15.7) L 07/10/20 06:20 Hct 24.6 % (36.0-46.0) L 07/10/20 06:20 MCV 95.3 fL (80-95) H 07/10/20 06:20 MCH 29.1 pg (27.0-33.0) 07/10/20 06:20 MCHC 30.5 % (32.0-36.0) L 07/10/20 06:20 RDW 17.7 % (11.7-14.6) H 07/10/20 06:20 Plt Count 280 10^3/uL (130-400) 07/10/20 06:20 MPV 8.7 fL (8.0-11.0) 07/10/20 06:20 Immature Gran % 2.3 07/10/20 06:20 Neutrophils % 70.5 07/10/20 06:20 Lymphocytes % 12.1 07/10/20 06:20 Monocytes % 9.8 07/10/20 06:20 Eosinophils % 4.8 07/10/20 06:20 Basophils % 0.5 07/10/20 06:20 Absolute Neutrophils 3.98 10^3/uL (1.2-6.7) 07/10/20 06:20 Absolute Lymphocytes 0.68 10^3/uL (1.2-3.4) L 07/10/20 06:20 Absolute Monocytes 0.55 10^3/uL (0.1-0.8) 07/10/20 06:20 Absolute Eosinophils 0.27 10^3/uL (0.0-0.7) 07/10/20 06:20 Absolute Basophils 0.03 10^3/uL (0.0-0.2) 07/10/20 06:20 RBC Morphology See below 07/09/20 06:50 Polychromasia Present 07/09/20 06:50 Hypochromasia 1+ 07/09/20 06:50 Poikilocytosis 2+ 07/09/20 06:50 Basophilic Stippling Present 06/29/20 06:05 Anisocytosis 1+ 07/09/20 06:50 Microcytosis 1+ 06/29/20 06:05 Macrocytosis 1+ 06/29/20 06:05 ABG Sample Site Cancelled 07/08/20 16:27 ABG pH Cancelled 07/08/20 16:27 ABG pCO2 Cancelled 07/08/20 16:27 ABG pO2 Cancelled 07/08/20 16:27 ABG HCO3 Cancelled 07/08/20 16:27 ABG Total CO2 Cancelled 07/08/20 16:27 ABG O2 Saturation Cancelled 07/08/20 16:27 ABG Base Excess Cancelled 07/08/20 16:27 VBG pH 7.47 (7.31-7.41) H 07/08/20 16:00 VBG pCO2 46 mmHg (41-51) 07/08/20 16:00 VBG pO2 27 mmHg 07/08/20 16:00 VBG HCO3 34 mmol/L (23-28) H 07/08/20 16:00 VBG Total CO2 32 mmol/L (24-29) H 07/08/20 16:00 VBG O2 Saturation 51 % (70-80) L 07/08/20 16:00 VBG Base Excess 10.1 mmol/L (-3-3) H 07/08/20 16:00 Oxygen Liter Flow Cancelled 07/08/20 16:27 FiO2 Cancelled 07/08/20 16:27 Sodium 140 mmol/L (136-145) 07/10/20 06:20 Potassium 3.7 mmol/L (3.5-5.1) 07/10/20 06:20 Chloride 104 mmol/L (98-107) 07/10/20 06:20 Carbon Dioxide 28.1 mmol/L (21.0-32.0) 07/10/20 06:20 Anion Gap 7.9 mmol/L (3-11) 07/10/20 06:20 BUN 34 mg/dL (7-18) H 07/10/20 06:20 Creatinine 1.09 mg/dL (0.55-1.02) H 07/10/20 06:20 Estimated GFR/1.73 m2 48.80 (mL/min/1.73m2) 07/10/20 06:20 Glucose 129 mg/dL (74-106) H 07/10/20 06:20 Calcium 9.0 mg/dL (8.5-10.1) 07/10/20 06:20 Magnesium 2.2 mg/dL (1.8-2.4) 07/10/20 06:20 Total Bilirubin 0.2 mg/dL (0.2-1.0) 07/08/20 10:34 Conjugated Bilirubin 0.10 mg/dL (0.00-0.20) 07/08/20 10:34 AST 10 U/L (15-37) L 07/08/20 10:34 ALT 6 U/L (14-59) L 07/08/20 10:34 Alkaline Phosphatase 111 U/L (46-116) 07/08/20 10:34 Ammonia < 10 umol/L (11-32) L 07/08/20 10:34 C-Reactive Protein 5.59 mg/dL (0.0-0.3) H 07/10/20 06:20 Total Protein 6.8 g/dL (6.4-8.2) 07/08/20 10:34 Albumin 2.8 g/dL (3.4-5.0) L 07/08/20 10:34 25-OH Vitamin D Total 11.7 ng/ml (30-100) L 07/03/20 06:25 Procalcitonin 0.1 ng/mL 07/05/20 06:45 TSH 4.53 uIU/mL (0.36-3.74) H 07/03/20 06:25 Free T4 1.01 ng/dL (0.76-1.46) 07/03/20 06:25 Urine Color Yellow (Yellow) 07/08/20 10:54 Urine Clarity Cloudy (Clear) 07/08/20 10:54 Urine pH 5.5 (5-8) 07/08/20 10:54 Ur Specific [place] 1.015 (1.005-1.025) 07/08/20 10:54 Urine Protein Trace mg/dL (Negative) H 07/08/20 10:54 Urine Ketones Negative mg/dL (Negative) 07/08/20 10:54 Urine Blood Trace-intact (Negative) H 07/08/20 10:54 Urine Nitrite Negative (Negative) 07/08/20 10:54 Urine Bilirubin Negative (Negative) 07/08/20 10:54 Urine Urobilinogen 0.2 EU/dL (Up TO 0.2) 07/08/20 10:54 Ur Leukocyte Esterase Large (Negative) H 07/08/20 10:54 Urine RBC 0-2 HPF (0-2) 07/08/20 10:54 Urine WBC >50 HPF (0-5) H 07/08/20 10:54 Ur Epithelial Cells Few HPF (Negative) 07/08/20 10:54 Urine Crystals Negative HPF (Negative) 07/08/20 10:54 Urine Bacteria Many HPF (Negative) 07/08/20 10:54 Urine Casts Negative LPF (Negative) 07/08/20 10:54 Urine Mucus Negative (Negative) 07/08/20 10:54 Ur Culture Indicated? Yes 07/08/20 10:54 Urine Glucose Negative mg/dL (Negative) 07/08/20 10:54 Digoxin 0.62 ng/mL (0.90-2.00) L 07/08/20 10:34
--- NOTE | 2020-07-11 14:17 | PT.INNT ---
Date of service: 07/11/20 Time of Service: 14:18 PT Notes Visit Reasons: MSSA INFECTION 07/11/20 Patient refused to participate in PT in both morning and afternoon today. In a.m., patient was crying in bed, stating that she is really upset over the news she received about her L foot. In p.m., patient refused PT again, her daughter was present, and stated she's taking today off, but the exercises are really helping, she's much stronger now. Will attempt to resume PT services tomorrow morning.
[2020-07-11 15:14] LABS: CREATININE 1.13 mg/dL (0.55-1.02); Estimated GFR 46.82 (mL/min/1.73m2)
[2020-07-11 15:16] LABS: C-Reactive Protein 3.79 mg/dL (0.0-0.3)
[2020-07-11 15:24] LABS: Abs Immature Grans 0.11 10^3/uL (0.0-0.06); Absolute Basophil Count 0.02 10^3/uL (0.0-0.2); Absolute Eosinophil Count 0.25 10^3/uL (0.0-0.7); Absolute Monocyte Count 0.66 10^3/uL (0.1-0.8); Absolute Neutrophil Count 5.14 10^3/uL (1.2-6.7); Basophils % 0.3; Eosinophils % 3.6; HCT 24.9 % (36.0-46.0); HGB 7.6 g/dL (11.2-15.7); Immature Grans % 1.6; Lymphocytes % 10.2; MCH 29.6 pg (27.0-33.0); MCHC 30.5 % (32.0-36.0); MCV 96.9 fL (80-95); Monocytes % 9.6; Neutrophils % 74.7; Nucleated RBC 0 %; Platelet Count 246 10^3/uL (130-400); RBC 2.57 10^6/uL (3.93-5.22); RDW 17.3 % (11.7-14.6); RDW-SD 59.8 fL; WBC 6.88 10^3/uL (4.4-10.8)
[2020-07-11] MEDS: VANCOMYCIN 750 MG in Normal Saline 250 ML 167 MG IVPB (16:43)
[2020-07-11 18:40] LABS: Anisocytosis 2+; Diff Comment Diff Reviewed
[2020-07-11] MEDS: diphenhydrAMINE 25 MG CAP PO (20:29)
[2020-07-11] MEDS: Atorvastatin 40 MG TAB PO (20:31)
[2020-07-11] MEDS: Melatonin 3 MG TAB PO (21:20)
[2020-07-11] MEDS: dilTIAZem CD 120 MG CAPCR 240 MG PO (21:20)
[2020-07-12] MEDS: CEFEPIME 2 GM in Normal Saline 100 ML IVPB (02:05)
[2020-07-12] MEDS: Levothyroxine 25 MCG TAB PO (06:33)
[2020-07-12] MEDS: Tiotropium Bromide-Respimat 10 PUFF INH 2 PUFF IH (07:43)
[2020-07-12 07:51] VITALS: BP 164/80; PULSE 77; RESP 20; TEMP 36.7; O2SAT 100
--- NOTE | 2020-07-12 08:07 | OT.INTREAT ---
Date of service: 07/12/20 Time of Service: 07:45 Occupational Therapy Notes Occupational Therapy Inpatient Treatment Note Date: 07/12/20 PRECAUTIONS: Fall, Standard, DNR/DNI SUBJECTIVE: Pt was sitting in bed when OT arrived, she reports that she is really tired and that she did not sleep well last night. She states that she has no pain right now and that she just wants to get lightly washed at the moment. OBJECTIVE: PAIN:no c/o pain BATHING: With max (A) set up/clean up Upper Body: (I) washing face and (B) UE with min (A) under her arms. Pt denies all other bathing routines. GROOMING: sitting in bed (I) with brushing her hair, OT and pt discuss adaptive equipment which pt states she is not sure of at this time. OT discussed use of tank setter and dressing stick to (A) with LE dressing. ASSESSMENT/PLAN: Pt did not want to perform increased ADLs today as she reports that she is tired. She was receptive to education on adaptive equipment and OT will attempt to go over this with pt tomorrow as she was tired this morning. TREATMENT CODES/TIME: 05689, 15 minutes (07:45) Yue Lala, OTR/[facility]
[2020-07-12] MEDS: Fluticasone NASAL SPRAY 16 GM BTL NS (08:35)
[2020-07-12] MEDS: Polyethylene Glycol 3350 17 GM PACKET PO (08:35)
[2020-07-12] MEDS: Diclofenac 1% Gel 100 GM TUBE TP ×4 (08:36→20:07)
[2020-07-12] MEDS: Nystatin POWDER 15 GM JAR TP ×2 (08:36→20:06)
[2020-07-12] MEDS: Insulin Aspart 300 UNITS/3 ML PEN SC ×2 (08:36→11:39)
[2020-07-12 08:38] VITALS: PULSE 77
[2020-07-12] MEDS: DULoxetine 30 MG CAP 60 MG PO (08:38)
[2020-07-12] MEDS: Gabapentin 300 MG CAP PO ×2 (08:38→20:05)
[2020-07-12] MEDS: Digoxin 0.125 MG TAB 0.0625 MG PO (08:38)
[2020-07-12] MEDS: Metoprolol CR 100 MG TABCR 200 MG PO (08:38)
[2020-07-12] MEDS: Allopurinol 100 MG TAB PO (08:39)
[2020-07-12] MEDS: Beta-Carotene(A) w/C,E, & Minerals TAB PO (08:39)
[2020-07-12] MEDS: Clopidogrel 75 MG TAB PO (08:39)
[2020-07-12] MEDS: Potassium Chloride 20 MEQ TABCR PO (08:39)
[2020-07-12] MEDS: Apixaban 5 MG TAB PO ×2 (08:39→20:06)
[2020-07-12] MEDS: Pantoprazole 20 MG TABCR PO (08:39)
--- NOTE | 2020-07-12 11:13 | PT.INTREAT ---
Date of service: 07/12/20 Time of Service: 11:13 PT Notes Visit Reasons: MSSA INFECTION Inpatient Physical Therapy Treatment Note [facility] Date: 07/12/2020 PRECAUTIONS: Fall. Standard. Activity as tolerated. SUBJECTIVE: Sunshine is pleasant and cooperative with treatment goals for today. Did express significant pain in her low back area while seated at edge of bed but was able to work through activity with ample encouragement and assistance from PT and GILSON Long. She is not sure how long she can tolerate being on the chair but she said she will try her best. OBJECTIVE: Wound dressing to L great toe. Wrap to R AKA almost falling off. PAIN: Complains of significant pain in low back area in the sitting position. BED MOBILITY/TRANSFERS Rolling L/R: SBA Supine to sit: Moderate assist of 2 due to pain level Bed to chair: Moderate assist of 2 using the slide board. Patient noticeably shaking during the early part of side scooting but was able to contribute towards the latter half of the transfer by minimally pushing her left hand onto the board and hiking her pelvis up and sideways to the L. PT Intervention: Session began with bed level exercises consisting of bridging activity with 5-second hold x 5 reps for 3 sets with a pillow provided under the residual limb to allow for hip extension resistance. Patient went on performing alternate upper extremity and lower extremity exercises consisting of trapeze pull-ups x 5 reps for 2 sets, straight leg raises up to 30 degrees on the left lower extremity with 2 pound weight x 10 reps, and hip abduction with 2 pound ankle weights x 10 reps, and supine hip abduction x 10. Patient also tolerated residual limb exercises consisting of hip extension x 10, hip flexion x 10 and hip abduction x 10. R AKA residual limb using was then rewrapped using two 6-inch wide ELVA wraps and one 4-inch wide ELVA wrap. ASSESSMENT: Pain limited today's activities. Right residual limb swelling has considerably diminished with erythema significantly improved. Patient was not available this afternoon due to a family meeting. PLAN: Continue with PT POC emphasizing core strengthening, slide board transferring, and right residual limb shaping in preparation for prosthetic fitting. TREATMENT CODE/TIME: 775295 x 25 minutes, 48003 x 21 minutes beginning at 11:13 AM.
[2020-07-12] MEDS: VANCOMYCIN 750 MG in Normal Saline 250 ML 167 MG IVPB (11:28)
[2020-07-12] MEDS: Normal Saline Flush 10 ML SYR IVP (11:31)
[2020-07-12 11:37] VITALS: BP 158/65; PULSE 72; RESP 19; TEMP 36.5; O2SAT 100
--- NOTE | 2020-07-12 11:46 | W.PM.PROGNOT ---
Date of Service Date of service: 07/12/20 Time of Service: 11:46 Subjective Subjective Interval history since last seen: Still awaiting call back from [facility] vascular. Discussed case with Dr Paredes - infectious disease fellow at [facility] - based on significant clinical improvement, resolution of UTI, and plans for procedure on the toe, recommendation is to stop all antibiotics at this time in hopes of a more reliable wound/bone culture at the time of intervention at [facility]. Objective Objective Clinical Data: Abnormal lab results 07/11/20 07/11/20 07/11/20 Range/Units 14:55 14:55 14:55 RBC 2.57 L (3.93-5.22) 10^6/uL Hgb 7.6 L (11.2-15.7) g/dL Hct 24.9 L (36.0-46.0) % MCV 96.9 H (80-95) fL MCHC 30.5 L (32.0-36.0) % RDW 17.3 H (11.7-14.6) % Absolute Lymphocytes 0.70 L (1.2-3.4) 10^3/uL Creatinine 1.13 H (0.55-1.02) mg/dL C-Reactive Protein 3.79 H (0.0-0.3) mg/dL Vital Signs Temperature 36.5 C 07/12/20 11:37 Temperature Source Tympanic 07/12/20 11:37 Pulse 72 07/12/20 11:37 Pulse Rhythm Irregular 07/12/20 02:08 Respiratory Rate 19 07/12/20 11:37 Respiratory Effort Non-Labored 07/12/20 02:08 Respiratory Depth Normal 07/12/20 02:08 Respiratory Pattern Normal 07/12/20 02:08 Blood Pressure 158/65 H 07/12/20 11:37 Pulse Oximetry 100 07/12/20 11:37 Oxygen Delivery Method Room Air 07/12/20 11:37 Oxygen Flow Rate 0 07/12/20 11:37 Pain Level 3 07/12/20 11:37 Comment 07/07/20 21:00 Intake & Output 07/11/20 07/11/20 07/12/20 11:59 23:59 11:59 Intake Total 590 / 1200 610 / 1200 250 / 250 Balance 590 / 1200 610 / 1200 250 / 250 Weight 67.4 kg 67.6 kg Intake: IV 390 / 640 250 / 640 Oral 200 / 560 360 / 560 240 / 240 Other: Urine Color Yellow Urine Appearance Clear Urine Odor Normal Stool Size Small Moderate Smear Stool Characteristics Soft Soft Soft Brown Voiding Methods Diaper Incontinent Diaper Incontinent Laboratory Results WBC 6.88 10^3/uL (4.4-10.8) 07/11/20 14:55 RBC 2.57 10^6/uL (3.93-5.22) L 07/11/20 14:55 Hgb 7.6 g/dL (11.2-15.7) L 07/11/20 14:55 Hct 24.9 % (36.0-46.0) L 07/11/20 14:55 MCV 96.9 fL (80-95) H 07/11/20 14:55 MCH 29.6 pg (27.0-33.0) 07/11/20 14:55 MCHC 30.5 % (32.0-36.0) L 07/11/20 14:55 RDW 17.3 % (11.7-14.6) H 07/11/20 14:55 Plt Count 246 10^3/uL (130-400) 07/11/20 14:55 MPV 9.0 fL (8.0-11.0) 07/11/20 14:55 Immature Gran % 1.6 07/11/20 14:55 Neutrophils % 74.7 07/11/20 14:55 Lymphocytes % 10.2 07/11/20 14:55 Monocytes % 9.6 07/11/20 14:55 Eosinophils % 3.6 07/11/20 14:55 Basophils % 0.3 07/11/20 14:55 Absolute Neutrophils 5.14 10^3/uL (1.2-6.7) 07/11/20 14:55 Absolute Lymphocytes 0.70 10^3/uL (1.2-3.4) L 07/11/20 14:55 Absolute Monocytes 0.66 10^3/uL (0.1-0.8) 07/11/20 14:55 Absolute Eosinophils 0.25 10^3/uL (0.0-0.7) 07/11/20 14:55 Absolute Basophils 0.02 10^3/uL (0.0-0.2) 07/11/20 14:55 RBC Morphology See below 07/11/20 14:55 Polychromasia Present 07/09/20 06:50 Hypochromasia 1+ 07/09/20 06:50 Poikilocytosis 2+ 07/09/20 06:50 Basophilic Stippling Present 06/29/20 06:05 Anisocytosis 2+ 07/11/20 14:55 Microcytosis 1+ 06/29/20 06:05 Macrocytosis 1+ 06/29/20 06:05 ABG Sample Site Cancelled 07/08/20 16:27 ABG pH Cancelled 07/08/20 16:27 ABG pCO2 Cancelled 07/08/20 16:27 ABG pO2 Cancelled 07/08/20 16:27 ABG HCO3 Cancelled 07/08/20 16:27 ABG Total CO2 Cancelled 07/08/20 16:27 ABG O2 Saturation Cancelled 07/08/20 16:27 ABG Base Excess Cancelled 07/08/20 16:27 VBG pH 7.47 (7.31-7.41) H 07/08/20 16:00 VBG pCO2 46 mmHg (41-51) 07/08/20 16:00 VBG pO2 27 mmHg 07/08/20 16:00 VBG HCO3 34 mmol/L (23-28) H 07/08/20 16:00 VBG Total CO2 32 mmol/L (24-29) H 07/08/20 16:00 VBG O2 Saturation 51 % (70-80) L 07/08/20 16:00 VBG Base Excess 10.1 mmol/L (-3-3) H 07/08/20 16:00 Oxygen Liter Flow Cancelled 07/08/20 16:27 FiO2 Cancelled 07/08/20 16:27 Sodium 140 mmol/L (136-145) 07/10/20 06:20 Potassium 3.7 mmol/L (3.5-5.1) 07/10/20 06:20 Chloride 104 mmol/L (98-107) 07/10/20 06:20 Carbon Dioxide 28.1 mmol/L (21.0-32.0) 07/10/20 06:20 Anion Gap 7.9 mmol/L (3-11) 07/10/20 06:20 BUN 34 mg/dL (7-18) H 07/10/20 06:20 Creatinine 1.13 mg/dL (0.55-1.02) H 07/11/20 14:55 Estimated GFR/1.73 m2 46.82 (mL/min/1.73m2) 07/11/20 14:55 Glucose 129 mg/dL (74-106) H 07/10/20 06:20 Calcium 9.0 mg/dL (8.5-10.1) 07/10/20 06:20 Magnesium 2.2 mg/dL (1.8-2.4) 07/10/20 06:20 Total Bilirubin 0.2 mg/dL (0.2-1.0) 07/08/20 10:34 Conjugated Bilirubin 0.10 mg/dL (0.00-0.20) 07/08/20 10:34 AST 10 U/L (15-37) L 07/08/20 10:34 ALT 6 U/L (14-59) L 07/08/20 10:34 Alkaline Phosphatase 111 U/L (46-116) 07/08/20 10:34 Ammonia < 10 umol/L (11-32) L 07/08/20 10:34 C-Reactive Protein 3.79 mg/dL (0.0-0.3) H 07/11/20 14:55 Total Protein 6.8 g/dL (6.4-8.2) 07/08/20 10:34 Albumin 2.8 g/dL (3.4-5.0) L 07/08/20 10:34 25-OH Vitamin D Total 11.7 ng/ml (30-100) L 07/03/20 06:25 Procalcitonin 0.1 ng/mL 07/05/20 06:45 TSH 4.53 uIU/mL (0.36-3.74) H 07/03/20 06:25 Free T4 1.01 ng/dL (0.76-1.46) 07/03/20 06:25 Urine Color Yellow (Yellow) 07/08/20 10:54 Urine Clarity Cloudy (Clear) 07/08/20 10:54 Urine pH 5.5 (5-8) 07/08/20 10:54 Ur Specific [place] 1.015 (1.005-1.025) 07/08/20 10:54 Urine Protein Trace mg/dL (Negative) H 07/08/20 10:54 Urine Ketones Negative mg/dL (Negative) 07/08/20 10:54 Urine Blood Trace-intact (Negative) H 07/08/20 10:54 Urine Nitrite Negative (Negative) 07/08/20 10:54 Urine Bilirubin Negative (Negative) 07/08/20 10:54 Urine Urobilinogen 0.2 EU/dL (Up TO 0.2) 07/08/20 10:54 Ur Leukocyte Esterase Large (Negative) H 07/08/20 10:54 Urine RBC 0-2 HPF (0-2) 07/08/20 10:54 Urine WBC >50 HPF (0-5) H 07/08/20 10:54 Ur Epithelial Cells Few HPF (Negative) 07/08/20 10:54 Urine Crystals Negative HPF (Negative) 07/08/20 10:54 Urine Bacteria Many HPF (Negative) 07/08/20 10:54 Urine Casts Negative LPF (Negative) 07/08/20 10:54 Urine Mucus Negative (Negative) 07/08/20 10:54 Ur Culture Indicated? Yes 07/08/20 10:54 Urine Glucose Negative mg/dL (Negative) 07/08/20 10:54 Vancomycin Trough 16.0 ug/mL (10.0-20.0) 07/11/20 14:55 Digoxin 0.62 ng/mL (0.90-2.00) L 07/08/20 10:34
[2020-07-12] MEDS: Acetaminophen 325 MG TAB 650 MG PO ×3 (13:15→21:23)
--- NOTE | 2020-07-12 15:02 | CHAPLAIN ---
Sunshine was have a dressing change when I stopped in. She said she is waiting for Care Management to arrange a meeting with both her daughters. (This requires permission to allow a patient to have two visitors.) Sunshine spoke on the phone with a nephew who is a reliner. She remains concerned that she will have her other leg amputated. For the past nine months or so, she has either been hospitalized or living at [facility], and is sad about not being able to return to her apartment.
--- NOTE | 2020-07-12 16:53 | PDOC.CMPRO ---
- If Service Date Differs Date of service: 07/12/20 Time of Service: 16:53
[2020-07-12] MEDS: Atorvastatin 40 MG TAB PO (20:05)
[2020-07-12] MEDS: Melatonin 3 MG TAB PO (21:25)
[2020-07-12] MEDS: dilTIAZem CD 120 MG CAPCR 240 MG PO (21:25)
--- NOTE | 2020-07-13 | DI.MRI_ITS ---
EXAM: MR LOWER EXTREMITY LT WO/W CLINICAL HISTORY: concern for L great toe OM. TECHNIQUE: Multiplanar multisequence MRI was performed. COMPARISON: CR,XR XR TOE LT GREAT from 06/29/2020 FINDINGS: Study is degraded by patient motion. Large [id number] does also limit detail. Bones: There is normal marrow signal. No abnormal marrow signal is seen to suggest osteomyelitis. N o abnormal enhancement is seen in the bones. Joints: Degenerative changes are seen at the tarsometatarsal joints and the intertarsal joints of the foot. Soft tissues: There is edema seen in the forefoot and in the toes consistent with cellulitis. No sof t tissue mass or focal fluid collection is seen to suggest an abscess. There is some deformity seen at the base of the proximal phalanx of the 2nd toe which may represent a nonacute fracture. IMPRESSION: 1. No evidence of a osteomyelitis. 2. Findings consistent with cellulitis without abscess. 3. Osteoarthritis. DATA REPOSITORY:
[2020-07-13 05:37] VITALS: BP 180/78; PULSE 75; RESP 18; TEMP 35.9; O2SAT 98
--- NOTE | 2020-07-13 08:22 | NT_ITS ---
Date of service: 07/13/20 Time of Service: 08:22 Occupational Therapy Notes 07/13/20 Pt is gone for the day in [facility]. OT will resume OT services tomorrow 07/14/20. Yue Lala OTR[facility]
--- NOTE | 2020-07-13 08:22 | OT.INNT ---
Date of service: 07/13/20 Time of Service: 08:22 Occupational Therapy Notes 07/13/20 Pt is gone for the day in [facility] [place]. OT will resume OT services tomorrow 07/14/20. Yue Lala OTR[facility]
--- NOTE | 2020-07-13 11:01 | DIABASSESS_ITS ---
Date of service: 07/13/20 Time of Service: 11:01 Diabetes Note NOTE: Sunshine continues on Diabetic diet with adequate intake to meet nutrient and fluid needs. Blood sugars in good control with current meds. At [facility] today, as with diabetic foot ulcer, PAD and may need to amputate great toe. Will continue to follow meds, blood sugars, po intake and healing and make needed diet adjustments for optimal nutrient and fluid intake to support healing. Time Spent in Nutritional Counseling and Treatment: 0 time spent face to face
[2020-07-13] MEDS: Diclofenac 1% Gel 100 GM TUBE TP ×3 (11:50→20:23)
--- NOTE | 2020-07-13 12:49 | PT.INTREAT ---
Date of service: 07/13/20 Time of Service: 12:49 PT Notes Visit Reasons: MSSA INFECTION Inpatient Physical Therapy Treatment Note [facility] Date: 07/13/2020 PRECAUTIONS: Fall. Standard. Activity as tolerated. SUBJECTIVE: Agreeable to doing bed level exercises and requested to do any out-of-bed activities tomorrow as she has been busy this morning coming from an appointment with [facility] MD. Per patient, [facility] MD said that both her limbs have been doing well and that she would need to come back next for another follow up appointment. OBJECTIVE: Wound dressing to L great toe. Wrap to R AKA sliding down. PAIN: None reported while in supine and while doing exercises. BED MOBILITY/TRANSFERS Rolling L/R: SBA while holding/pulling from bed rails PT Intervention: Session began with bed level exercises consisting of straight leg raises up to 30 degrees on the left lower extremity without weights x 10 reps and L hip ER/IR x 10. Patient was then asked to roll to her L side to work on residual limb exercises consisting of hip extension x 10 and hip abduction x 10 with 5-sec hold each time. Bridging activity x 10 reps was then performed and was follwed by trapeze pull-ups x 10. ASSESSMENT: Pain limited today's activities. Right residual limb swelling almost 100% diminished. Only 1 session was done today due [facility] morning appointment. PLAN: Continue with PT POC emphasizing core strengthening, slide board transferring, and right residual limb shaping in preparation for prosthetic fitting. TREATMENT CODE/TIME: 04729 x 27 minutes beginning at 12:49 PM.
--- NOTE | 2020-07-13 12:54 | CMACTNOTE_ITS ---
- If Service Date Differs Date of service: 07/13/20 Time of Service: 12:54 Care Management Activity Note S/O: Sunshine has been emotional during this admission, as she stated that she is worried that she may lose her other leg. She has been pleasant and engaged in conversation. Her daughter, Yennifer has been her designated visitor during this admission, and she has enjoyed her visits. Yesterday, Sunshine's daughter, Emilia called and requested a visit with her mother prior to her [facility] appointment, which happened today. CM discussed the visitation policy, but offered an outside visit with the guidance of Jackelyn Dorman and Noel Ramirez. Sunshine was very happy to visit with both of her daughters, although she reported that it was a short visit. Sunshine has coloring sheets and crayons, but has not used them yet. CM asked if there were any other items that would bring her comfort while at [facility], which she declined. CM will continue to follow. A: Sunshine is a 75 year old female admitted to [facility] for IV abx. P: Anticipate Sunshine will return to [facility] once medically cleared. She will transport via ambulance, coordinated by [facility]. She will follow up with [facility] on 07/20/20 at 10:15am. Per Adiel at [facility], she can be transitioned back with a pending Covid test, as she will be quarantined for 14 days when she arrives. CM will continue to follow.
[2020-07-13] MEDS: Normal Saline 500 ML 30 ML IV (13:42)
[2020-07-13] MEDS: cefTRIAXone 1 GM/50 ML BAG IVPB (13:43)
[2020-07-13] MEDS: Normal Saline Flush 10 ML SYR IVP ×2 (13:44→16:00)
--- NOTE | 2020-07-13 14:33 | PGE_ITS ---
Date of Service Date of service: 07/13/20 Time of Service: 14:34 Subjective Subjective Interval history since last seen: The patient went for a vascular appointment today at [facility] and returned to us. She had ABIs showing TP of 75, which was felt sufficient to heal the ulceration without a vascular intervention. The patient understood this to mean that she did not have an infected L D1 ulcer. The patient is expected to be seen again at [facility] vascular clinic in [address] case with Dr Feliciano. There is a question of whether or not her bone in the toe is involved. He recommended an MRI of the foot to rule out osteomyelitis. The patient is refusing this study at this time, citing both the fact that she is claustrophobic and the fact that she was told that the toe looked good. I spoke with her stating that Dr Feliciano and myself think that there may, in fact, be bone infection in addition to the soft tissue infection. Purulent discharge has been seen on dressing from the toe. Wound culture is growing serratia. We spoke about the fact that we could do a CT instead. The patient is not sure if she will let me order the test and would like to talk to her daughters. I just spoke with Yennifer Jaquez explaining the situation. She will talk to her sister and her mom and I will be notified of the decision. I have placed the patient on ceftriaxone for now. Will await family's decision. Objective Objective Clinical Data: Vital Signs Temperature 35.9 C L 07/13/20 05:37 Temperature Source Tympanic 07/13/20 05:37 Pulse 75 07/13/20 05:37 Pulse Rhythm Irregular 07/12/20 23:59 Respiratory Rate 18 07/13/20 05:37 Respiratory Effort Non-Labored 07/12/20 23:59 Respiratory Depth Normal 07/12/20 23:59 Respiratory Pattern Normal 07/12/20 23:59 Blood Pressure 180/78 H 07/13/20 05:37 Pulse Oximetry 98 07/13/20 05:37 Oxygen Delivery Method Room Air 07/13/20 05:37 Oxygen Flow Rate 0 07/13/20 05:37 Pain Level 0 07/13/20 05:37 Comment 07/07/20 21:00 Intake & Output 07/12/20 07/13/20 07/13/20 23:59 11:59 23:59 Intake Total 890 / 1140 480 / 480 Balance 890 / 1140 480 / 480 Weight 68.1 kg Intake: IV 290 / 300 Oral 600 / 840 480 / 480 Other: Urine Color Dark Martha Urine Appearance Clear Urine Odor Normal Voiding Methods Diaper Incontinent Laboratory Results WBC 6.88 10^3/uL (4.4-10.8) 07/11/20 14:55 RBC 2.57 10^6/uL (3.93-5.22) L 07/11/20 14:55 Hgb 7.6 g/dL (11.2-15.7) L 07/11/20 14:55 Hct 24.9 % (36.0-46.0) L 07/11/20 14:55 MCV 96.9 fL (80-95) H 07/11/20 14:55 MCH 29.6 pg (27.0-33.0) 07/11/20 14:55 MCHC 30.5 % (32.0-36.0) L 07/11/20 14:55 RDW 17.3 % (11.7-14.6) H 07/11/20 14:55 Plt Count 246 10^3/uL (130-400) 07/11/20 14:55 MPV 9.0 fL (8.0-11.0) 07/11/20 14:55 Immature Gran % 1.6 07/11/20 14:55 Neutrophils % 74.7 07/11/20 14:55 Lymphocytes % 10.2 07/11/20 14:55 Monocytes % 9.6 07/11/20 14:55 Eosinophils % 3.6 07/11/20 14:55 Basophils % 0.3 07/11/20 14:55 Absolute Neutrophils 5.14 10^3/uL (1.2-6.7) 07/11/20 14:55 Absolute Lymphocytes 0.70 10^3/uL (1.2-3.4) L 07/11/20 14:55 Absolute Monocytes 0.66 10^3/uL (0.1-0.8) 07/11/20 14:55 Absolute Eosinophils 0.25 10^3/uL (0.0-0.7) 07/11/20 14:55 Absolute Basophils 0.02 10^3/uL (0.0-0.2) 07/11/20 14:55 RBC Morphology See below 07/11/20 14:55 Polychromasia Present 07/09/20 06:50 Hypochromasia 1+ 07/09/20 06:50 Poikilocytosis 2+ 07/09/20 06:50 Basophilic Stippling Present 06/29/20 06:05 Anisocytosis 2+ 07/11/20 14:55 Microcytosis 1+ 06/29/20 06:05 Macrocytosis 1+ 06/29/20 06:05 ABG Sample Site Cancelled 07/08/20 16:27 ABG pH Cancelled 07/08/20 16:27 ABG pCO2 Cancelled 07/08/20 16:27 ABG pO2 Cancelled 07/08/20 16:27 ABG HCO3 Cancelled 07/08/20 16:27 ABG Total CO2 Cancelled 07/08/20 16:27 ABG O2 Saturation Cancelled 07/08/20 16:27 ABG Base Excess Cancelled 07/08/20 16:27 VBG pH 7.47 (7.31-7.41) H 07/08/20 16:00 VBG pCO2 46 mmHg (41-51) 07/08/20 16:00 VBG pO2 27 mmHg 07/08/20 16:00 VBG HCO3 34 mmol/L (23-28) H 07/08/20 16:00 VBG Total CO2 32 mmol/L (24-29) H 07/08/20 16:00 VBG O2 Saturation 51 % (70-80) L 07/08/20 16:00 VBG Base Excess 10.1 mmol/L (-3-3) H 07/08/20 16:00 Oxygen Liter Flow Cancelled 07/08/20 16:27 FiO2 Cancelled 07/08/20 16:27 Sodium 140 mmol/L (136-145) 07/10/20 06:20 Potassium 3.7 mmol/L (3.5-5.1) 07/10/20 06:20 Chloride 104 mmol/L (98-107) 07/10/20 06:20 Carbon Dioxide 28.1 mmol/L (21.0-32.0) 07/10/20 06:20 Anion Gap 7.9 mmol/L (3-11) 07/10/20 06:20 BUN 34 mg/dL (7-18) H 07/10/20 06:20 Creatinine 1.13 mg/dL (0.55-1.02) H 07/11/20 14:55 Estimated GFR/1.73 m2 46.82 (mL/min/1.73m2) 07/11/20 14:55 Glucose 129 mg/dL (74-106) H 07/10/20 06:20 Calcium 9.0 mg/dL (8.5-10.1) 07/10/20 06:20 Magnesium 2.2 mg/dL (1.8-2.4) 07/10/20 06:20 Total Bilirubin 0.2 mg/dL (0.2-1.0) 07/08/20 10:34 Conjugated Bilirubin 0.10 mg/dL (0.00-0.20) 07/08/20 10:34 AST 10 U/L (15-37) L 07/08/20 10:34 ALT 6 U/L (14-59) L 07/08/20 10:34 Alkaline Phosphatase 111 U/L (46-116) 07/08/20 10:34 Ammonia < 10 umol/L (11-32) L 07/08/20 10:34 C-Reactive Protein 3.79 mg/dL (0.0-0.3) H 07/11/20 14:55 Total Protein 6.8 g/dL (6.4-8.2) 07/08/20 10:34 Albumin 2.8 g/dL (3.4-5.0) L 07/08/20 10:34 25-OH Vitamin D Total 11.7 ng/ml (30-100) L 07/03/20 06:25 Procalcitonin 0.1 ng/mL 07/05/20 06:45 TSH 4.53 uIU/mL (0.36-3.74) H 07/03/20 06:25 Free T4 1.01 ng/dL (0.76-1.46) 07/03/20 06:25 Urine Color Yellow (Yellow) 07/08/20 10:54 Urine Clarity Cloudy (Clear) 07/08/20 10:54 Urine pH 5.5 (5-8) 07/08/20 10:54 Ur Specific [place] 1.015 (1.005-1.025) 07/08/20 10:54 Urine Protein Trace mg/dL (Negative) H 07/08/20 10:54 Urine Ketones Negative mg/dL (Negative) 07/08/20 10:54 Urine Blood Trace-intact (Negative) H 07/08/20 10:54 Urine Nitrite Negative (Negative) 07/08/20 10:54 Urine Bilirubin Negative (Negative) 07/08/20 10:54 Urine Urobilinogen 0.2 EU/dL (Up TO 0.2) 07/08/20 10:54 Ur Leukocyte Esterase Large (Negative) H 07/08/20 10:54 Urine RBC 0-2 HPF (0-2) 07/08/20 10:54 Urine WBC >50 HPF (0-5) H 07/08/20 10:54 Ur Epithelial Cells Few HPF (Negative) 07/08/20 10:54 Urine Crystals Negative HPF (Negative) 07/08/20 10:54 Urine Bacteria Many HPF (Negative) 07/08/20 10:54 Urine Casts Negative LPF (Negative) 07/08/20 10:54 Urine Mucus Negative (Negative) 07/08/20 10:54 Ur Culture Indicated? Yes 07/08/20 10:54 Urine Glucose Negative mg/dL (Negative) 07/08/20 10:54 Vancomycin Trough 16.0 ug/mL (10.0-20.0) 07/11/20 14:55 Digoxin 0.62 ng/mL (0.90-2.00) L 07/08/20 10:34
[2020-07-13] MEDS: Gadoterate meglumine 20 ML VIAL 14 ML IVP (16:00)
--- NOTE | 2020-07-13 17:08 | DI.VRAD_ITS ---
PROCEDURE INFORMATION: Exam: MR Left Lower Extremity Without and With Contrast; Forefoot Exam date and time: 07/13/2020 4:43 PM Age: 75 years old Clinical indication: Other: Open wound left great toe; Additional info: 14 ml dotarem TECHNIQUE: Imaging protocol: MR of the Left foot without and with intravenous contrast. Exam focused on the forefoot. Contrast material: DOTAREM; Contrast volume: 14 ml; Contrast route: INTRAVENOUS (IV); COMPARISON: CR XR TOE LT GREAT 06/29/2020 3:53 PM FINDINGS: Bones and cartilage: Normal bone marrow signal is maintained there is no abnormal osseous enhancement. Joint spaces: There is joint space narrowing, sclerosis and degenerative spurring throughout the tarsal metatarsal joints and interphalangeal joints of the left foot. Soft tissues: Marker was placed along the dorsum of the great toe at the interphalangeal joint. Edema is present diffusely throughout the forefoot and there is enhancement in the region of the toes indicating cellulitis but no soft tissue mass or focal fluid collection that would suggest abscess. The study is degraded by patient motion and the large field of view which limits detail. Additionally, inherent foot alignment places the smaller joints and bones at unusual angles. There does appear to be a small deformity and sclerosis approaching the base of the 2nd proximal phalanx but this is not very well seen. A small fracture may be present although it does not appear to be hyperacute. IMPRESSION: 1. Negative for osteomyelitis. 2. There is imaging evidence of cellulitis without abscess. 3. Diffuse forefoot osteoarthrosis. Dictated and Authenticated by: Gregory Flores MD. Ordering:CANDIDO Gill MD
[2020-07-13] MEDS: Acetaminophen 325 MG TAB 650 MG PO (17:24)
[2020-07-13] MEDS: Apixaban 5 MG TAB PO (20:22)
[2020-07-13] MEDS: Gabapentin 300 MG CAP PO (20:22)
[2020-07-13] MEDS: Atorvastatin 40 MG TAB PO (20:22)
[2020-07-13] MEDS: Nystatin POWDER 15 GM JAR TP (20:23)
[2020-07-13] MEDS: dilTIAZem CD 120 MG CAPCR 240 MG PO (20:30)
[2020-07-13] MEDS: Melatonin 3 MG TAB PO (20:30)
[2020-07-14 03:57] VITALS: BP 159/75; PULSE 72; RESP 18; TEMP 36.4; O2SAT 97
[2020-07-14] MEDS: Levothyroxine 25 MCG TAB PO (06:03)
[2020-07-14 07:05] VITALS: BP 152/70; PULSE 77; RESP 19; TEMP 36.4; O2SAT 97
[2020-07-14] MEDS: Tiotropium Bromide-Respimat 10 PUFF INH 2 PUFF IH (07:29)
[2020-07-14] MEDS: Nystatin POWDER 15 GM JAR TP (08:10)
[2020-07-14] MEDS: Fluticasone NASAL SPRAY 16 GM BTL NS (08:10)
[2020-07-14] MEDS: Polyethylene Glycol 3350 17 GM PACKET PO (08:11)
[2020-07-14 08:12] VITALS: PULSE 77
[2020-07-14] MEDS: Apixaban 5 MG TAB PO (08:12)
[2020-07-14] MEDS: Pantoprazole 20 MG TABCR PO (08:12)
[2020-07-14] MEDS: Digoxin 0.125 MG TAB 0.0625 MG PO (08:12)
[2020-07-14] MEDS: Gabapentin 300 MG CAP PO (08:12)
[2020-07-14] MEDS: Clopidogrel 75 MG TAB PO (08:12)
[2020-07-14] MEDS: Beta-Carotene(A) w/C,E, & Minerals TAB PO (08:12)
[2020-07-14] MEDS: Potassium Chloride 20 MEQ TABCR PO (08:12)
[2020-07-14] MEDS: Allopurinol 100 MG TAB PO (08:12)
[2020-07-14] MEDS: Metoprolol CR 100 MG TABCR 200 MG PO (08:13)
[2020-07-14] MEDS: Aspirin E.C. 81 MG TABEC PO (08:13)
[2020-07-14] MEDS: DULoxetine 30 MG CAP 60 MG PO (08:13)
[2020-07-14] MEDS: Normal Saline Flush 10 ML SYR IVP (08:13)
--- NOTE | 2020-07-14 08:57 | PT.INDS ---
Date of service: 07/14/20 Time of Service: 08:57 PT Notes Visit Reasons: MSSA INFECTION Physical Therapy Inpatient Progress Note Date: 07/14/2020 Dates of Service: 06/29/2020 through 07/14/2020 Precautions: Fall. Standard. Activity as tolerated. Subjective: No complaints of significant pain in the low back area during rolling activity but did report discomfort during bed exercises that subsided with rest. Objective: General Observation: R AKA residual limb covered with gauze and ELVA wraps. PICC line in right arm. Left equinovarus deformity. Abdominal panniculus. Mental Status: Alert and oriented x 4. Hears better in the L ear. Pain: 1-2/10 hroughout session ROM: Right Upper Extremity: Shoulder Flexion WFL. Shoulder abduction WFL. Elbow flexion WFL. Wrist flexion WFL. Opening and closing of hand WFL. Left Upper Extremity: Shoulder Flexion WFL. Shoulder abduction WFL. Elbow flexion WFL. Wrist flexion WFL. Opening and closing of hand WFL. Right Lower Extremity: Hip flexion WFL. Hip abduction WFL. Left Lower Extremity: Hip flexion WFL. Hip abduction WFL. Knee flexion WFL. Knee extension -15 degrees. Ankle dorsiflexion 20 degrees from fully plantarflexed position. Ankle myostatic plantarflexion contracture of about 45 degrees. Strength: Right Upper Extremity: Shoulder flexors 4-/5. Shoulder abductors 4-/5. Elbow flexors 4-/5. Elbow extensors 4-/5. Tank Cleaning Supervisor strong. Left Upper Extremity: Shoulder flexors 4-/5. Shoulder abductors 4-/5. Elbow flexors 4-/5. Elbow extensors 4-/5. Tank Cleaning Supervisor strong. Right Lower Extremity: Hip flexors 4-/5. Hip abductors 4-/5. Knee flexors 4-/5. Left Lower Extremity: Hip flexors 4-/5. Hip abductors 4-/5. Knee flexors 4-/5. Knee extensors 3-/5. Ankle dorsiflexors /5. Ankle plantarflexors 5/5. Trunk: Patient is now able to assume a more a erect trunk position while seated at edge of bed despite pain level. She is able to do a modified bridge while supine in bed. Sensation: Intact as to pain and pressure on left LE in the right residual limb. Bed Mobility/Transfers: Rolling: SBA while pulling on bed rails Supine to sit minimal to moderate assist of 2 depending on pain level Sit to supine minimal to moderate assist of 2 depending on pain level Sit to stand minimal to moderate assist of 2 depending on pain level Stand to sit minimal to moderate assist of 2 depending on pain level Bed to chair moderate assist of 2 using slide board Chair to bed moderate assist of 2 using slide board PT Intervention: Session began with bed level exercises consisting of bridging activity with 5-second hold x 5 reps for 3 sets with a pillow provided under the residual limb to allow for hip extension resistance. Patient went on performing alternate upper extremity and lower extremity exercises consisting of trapeze pull-ups x 15 reps, straight leg raises up to 30 degrees on the left lower extremity with 2 pound weight x 10 reps, and hip abduction with 2 pound ankle weights x 10 reps in R sidelying, and hip extension in R side lying x 10. Patient also tolerated residual limb exercises consisting of hip extension x 15 in L side lying, hip flexion x 15 in supine, and hip abduction x 15 in L side lying. R AKA residual limb was then rewrapped using two 6-inch wide ELVA wraps and one 4-inch wide ELVA wrap. Gait: Non-ambulatory. L Residual limb length from R ASIS: 32 cm Balance: Static Sitting: Good Dynamic Sitting: Good Static Standing: Unable Dynamic Standing: Unable Assessment: Sunshine received extensive wrapping of her R AKA while on admission at this hospital. There has been a significant reduction in swelling and phantom limb pain diminution.Her residual limb is now shaped well in anticipation of prosthesis use. A written instrcution on how to wrap limb is attached with patient's discharge instructions. She will need an MD order for a human resources manager manufacturing once surgical incision heals. Sunshine continues to demonstrate pain behaviors, significant functional mobility decline, generalized weakness, ambulatory dysfunction, balance impairment, and activity tolerance resulting from admitting diagnoses. Pain level is a major factor in her ability to perform mobility ADLs. Pre-medication for pain has considerably improved level of participation otherwise she mostly requires encouragement to participate in therapy. Her trunk stability has signfincatly increased which has helped with her ability to complete slide board transfers. 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 Sunshine will continue to benefit from physical therapy services to maximize mobility level in anticipation of return to SNF when medically cleared. Patient continues to present with clinical signs and symptoms consistent with current/admitting diagnoses that have resulted to mobility limitations, gait instability, generalized weakness, and impairment of motor control as demonstrated by the following impairment level findings: 1. Decreased strength to B UE/LE major muscle groups 2. Impaired sitting/standing balance 3. Impaired activity tolerance 4. Limitation of joint range of motion in left ankle and left knee Impairments are continuing to contribute to the following functional limitations: 1. Dependent bed mobility skills 2. Increased dependence with transfers 3. Inability to safely ambulate without assistive device and physical assistance 4. Increase completion time for mobility ADL performance 5. Increased fall risk 6. Inability to negotiate steps alone safely Goals: Goals X1 week 1. Supine-Sit minimal assist NOT MET 2. Sit-Supine minimal assist NOT MET 3. Sit-Stand minimal assist of 2 NOT MET 4. Stand-Sit minimal assist of 2 NOT MET 5. Bed-Chair minimal assist of 2 NOT MET 6. Chair-Bed mod assist of 2 NOT MET 7. Minimal assist of 2 for gait on level surface with use of least restrictive device for at least 300 feet without report of pain nor dyspnea NOT MET 8. Minimal assist of 2 for stair negotiation while holding onto bilateral rails for at least 10 steps without report of pain nor dyspnea NOT MET 9. Minimal assist of 2 with home exercise program NOT MET 10. Good static and dynamic standing balance/tolerance NOT MET DISCHARGE RECOMMENDATIONS: Patient will benefit from detention facility placement for continued skilled physical therapy services in order to progress mobility level, strength, and balance as well as to ensure preprosthetic training and R residual limb reshaping. TREATMENT CODE/TIME: 91670 x 35 minutes, 29342 x 23 minutes beginning at 8:57 AM. Thank you for the opportunity to participate in the care of this patient. Sandhya Holloway PT, DPT, CLT [facility] [place], [place]
--- NOTE | 2020-07-14 08:59 | OTPN_ITS ---
Date of service: 07/14/20 Time of Service: 08:40 Occupational Therapy Notes Occupational Therapy Inpatient Progress Note Date: 07/14/20 Dates of Service: 07/06/20-07/14/20 Referring Doctor:Beth Fulton NP OT Orders: Non-Urgent Precautions: Fall, standard, FULL PATIENT PROFILE/ADMITTING DIAGNOSIS: Pt is a 75 year female who has transitioned to [facility] for [facility] bed 1 rehabilitative care for a dx of MSSA and (R) AKA, CHF, Chronic anemia, DM II, A-fib, PAD and a chief c/o infection and s/p amputation. Past Medical History- Medical History Abnormal auditory perception (Inactive 10/25/13) Abnormal auditory perception (Inactive 11/06/15) Acute on chronic anemia (Acute) Atrial fibrillation (Chronic) CHF (congestive heart failure) (Chronic) Diabetes mellitus type 2 in nonobese (Acute) MSSA bacteremia (Acute) Obesity with body mass index 30 or greater (Inactive 10/25/13) Obstructive sleep apnea (adult) (pediatric) (Inactive 10/25/13) PAD (peripheral artery disease) (Acute) Pulmonary edema (Resolved) Sensorineural hearing loss, bilateral (Resolved 11/06/15) Sensorineural hearing loss, bilateral (Inactive 10/11/13) Sensory hearing loss, bilateral (Inactive 10/25/13) Surgical History Above knee amputation of right lower extremity (Acute ~05/2020) Social History/Home Situation: Pt has been residing at [facility] since May. She states that she gets (A) with dressing, bathing and grooming. She performs her bathing sitting in a chair with max (A) set up and clean up. She has all DME mets at her facility. She uses a FWW for functional mobility as well as transfers prior to (R) AKA. She has two daughters. She does not feel that returning to her apartment in [place] is a realistic goal and states this to OT at start of session. Equipment owned/DME: Resides at [facility] since May all DME met at [facility] SUBJECTIVE: Pt was sitting in bed when OT arrived. She was agreeable to OT session and notes that she went to [facility] yesterday and is not sure how she feels about this. OBJECTIVE: ROM: RUE AROM WFL L UE AROM WFL STRENGTH: RUE 4/5 throughout globally LUE 4/5 throughout globally *Pt is (R) hand dominant. FUNCTIONAL MOBILITY/ADLS: Transfers with marlene lift BATHING Sitting in bed with max (A) set up and clean up with mod vc and tactile cues for holding washcloth Bathing UE (I) washing face, mod (A) washing (B) UE, min (A) abdomen, max (A) hair Bathing LE Mod vc for bending leg towards body and pt was able to wash to mid calf with min (A) and then states that this is as far as she can go. DRESSING Sitting in bed Dressing UE (I) don and doffing hospital gown but requires min vc Dressing LE (I) able to don and doff (L) sock and shoe with increased performance time and mod vc for bending knee towards body. GROOMING Sitting in bed while brushing hair with min (A), with max (A) set up/clean up (I) with brushing teeth TOILETING Max (A) toileting hygiene and pt is incontinent in disposable underwear, pt is working with PT on slideboard transfers which goal is to improve her functional (I) to the commode. EATING Sitting in bed, pt is (I) with food to mouth translation and chewing/swallowing of food. BALANCE: Static sitting Good Dynamic Sitting Good Static Standing Poor Dynamic Standing Poor ASSESSMENT: Patient is a 75-year-old female referred to occupational therapy services with diagnosis of MSSA, (R) AKA and is admitted to [facility] for SWB 1 level of care. Pt has been seen over the past two weeks for skilled Occupational Therapy services. She is able to make small progressions. Her pain has been better managed which has helped with her functional (I) in her ADL/IADL routines. She is able to roll for bed mobility (I) but requires vc and is a marlene lift transfer at this time for functional mobility. OT and pt discuss goal of working towards utilizing her commode which she feels would be helpful. She can bend her (L) LE up with vc but sometimes states that she cannot due to pain. OT feels that pt is making progress and has improved since her initial consult. GOALS Goals x1 week 1. Transfers with Min (A) to sitting position on side of the bed- not met but progressing towards 2. Dressing sitting on side of the bed (I) don and doffing hospital gown, min (A) don and doffing sock- met 3. Bathing sitting on side of bed (I) with face, (B) UE and abdomen, (I) for (L) LE to mid calf, min (A) foot- progressing towards 4. Toileting on commode with mod (A)- not met PLAN OF CARE/TREATMENT PLAN: 1x/day, 5 days/ week x 1week Initiate Occupational Therapy Services for bathing, dressing, grooming, toileting, eating, transfer training. DISCHARGE RECOMMENDATIONS Return to [facility] when medically cleared per MD. TREATMENT TIME/MINUTES/CODES 17459, 20 minutes (08:40) Yue Lala OTR/[facility]
--- NOTE | 2020-07-14 10:48 | W.PM.PROGNOT ---
Date of Service Date of service: 07/14/20 Time of Service: 10:48 Subjective Subjective Interval history since last seen: Sunshine is seen in her room at bedside. She is awake and alert although remains depressed. She denies any pain in her left foot. Exam Narrative Exam Narrative: The left foot is warm to the touch although pulses are nonpalpable manually at the ankle. The great toe is pink in appearance with capillary return slow. Ulceration is noted dorsally on the hallux which appears clean. No erythema or cellulitis. Vascular studies were [performed at [facility] and Dr. Jensen believes that therer is sufficient blood flow to heal the wound. No vascular interventions are planned. Sunshine had her MRI yesterday no signs of osteomyelitis were noted. Impressions: Diabetic ulceration with peripheral arterial disease left hallux Plan: Continue with local wound care consisting of cleansing every day and applying q collagen dressing and a Mepilex secondarydressing. I did discuss the case with the hospitalists (Kaitlin and Lanre) She is being discharged today and will go home on Cipro BID for 10 days. We will be happy to continue to follow at the office or via zoom as needed. Objective Objective Clinical Data: Vital Signs Temperature 36.4 C L 07/14/20 07:05 Temperature Source Tympanic 07/14/20 07:05 Pulse 77 07/14/20 08:12 Pulse Rhythm Irregular 07/14/20 07:16 Respiratory Rate 19 07/14/20 07:05 Respiratory Effort Non-Labored 07/14/20 07:16 Respiratory Depth Normal 07/14/20 07:16 Respiratory Pattern Normal 07/14/20 07:16 Blood Pressure 152/70 H 07/14/20 07:05 Pulse Oximetry 97 07/14/20 07:05 Oxygen Delivery Method Room Air 07/14/20 07:05 Oxygen Flow Rate 0 07/14/20 07:05 Pain Level 0 07/14/20 07:16 Comment 07/14/20 07:16 Intake & Output 07/13/20 07/14/20 07/14/20 18:59 06:59 18:59 Intake Total 770 / 969 199 / 969 330 / 330 Balance 770 / 969 199 / 969 330 / 330 Weight 69.3 kg Intake: IV 40 / 239 199 / 239 90 / 90 Oral 730 / 730 240 / 240 Other: Urine Color Yellow Yellow Yellow Urine Appearance Clear Clear Urine Odor Normal Normal Comment Changed urine soaked brief. fully soaked diaper Incontinent x1 in the briefs. Briefs were changed. Voiding Methods Diaper Diaper Diaper Incontinent Incontinent Laboratory Results WBC 6.88 10^3/uL (4.4-10.8) 07/11/20 14:55 RBC 2.57 10^6/uL (3.93-5.22) L 07/11/20 14:55 Hgb 7.6 g/dL (11.2-15.7) L 07/11/20 14:55 Hct 24.9 % (36.0-46.0) L 07/11/20 14:55 MCV 96.9 fL (80-95) H 07/11/20 14:55 MCH 29.6 pg (27.0-33.0) 07/11/20 14:55 MCHC 30.5 % (32.0-36.0) L 07/11/20 14:55 RDW 17.3 % (11.7-14.6) H 07/11/20 14:55 Plt Count 246 10^3/uL (130-400) 07/11/20 14:55 MPV 9.0 fL (8.0-11.0) 07/11/20 14:55 Immature Gran % 1.6 07/11/20 14:55 Neutrophils % 74.7 07/11/20 14:55 Lymphocytes % 10.2 07/11/20 14:55 Monocytes % 9.6 07/11/20 14:55 Eosinophils % 3.6 07/11/20 14:55 Basophils % 0.3 07/11/20 14:55 Absolute Neutrophils 5.14 10^3/uL (1.2-6.7) 07/11/20 14:55 Absolute Lymphocytes 0.70 10^3/uL (1.2-3.4) L 07/11/20 14:55 Absolute Monocytes 0.66 10^3/uL (0.1-0.8) 07/11/20 14:55 Absolute Eosinophils 0.25 10^3/uL (0.0-0.7) 07/11/20 14:55 Absolute Basophils 0.02 10^3/uL (0.0-0.2) 07/11/20 14:55 RBC Morphology See below 07/11/20 14:55 Polychromasia Present 07/09/20 06:50 Hypochromasia 1+ 07/09/20 06:50 Poikilocytosis 2+ 07/09/20 06:50 Basophilic Stippling Present 06/29/20 06:05 Anisocytosis 2+ 07/11/20 14:55 Microcytosis 1+ 06/29/20 06:05 Macrocytosis 1+ 06/29/20 06:05 ABG Sample Site Cancelled 07/08/20 16:27 ABG pH Cancelled 07/08/20 16:27 ABG pCO2 Cancelled 07/08/20 16:27 ABG pO2 Cancelled 07/08/20 16:27 ABG HCO3 Cancelled 07/08/20 16:27 ABG Total CO2 Cancelled 07/08/20 16:27 ABG O2 Saturation Cancelled 07/08/20 16:27 ABG Base Excess Cancelled 07/08/20 16:27 VBG pH 7.47 (7.31-7.41) H 07/08/20 16:00 VBG pCO2 46 mmHg (41-51) 07/08/20 16:00 VBG pO2 27 mmHg 07/08/20 16:00 VBG HCO3 34 mmol/L (23-28) H 07/08/20 16:00 VBG Total CO2 32 mmol/L (24-29) H 07/08/20 16:00 VBG O2 Saturation 51 % (70-80) L 07/08/20 16:00 VBG Base Excess 10.1 mmol/L (-3-3) H 07/08/20 16:00 Oxygen Liter Flow Cancelled 07/08/20 16:27 FiO2 Cancelled 07/08/20 16:27 Sodium 140 mmol/L (136-145) 07/10/20 06:20 Potassium 3.7 mmol/L (3.5-5.1) 07/10/20 06:20 Chloride 104 mmol/L (98-107) 07/10/20 06:20 Carbon Dioxide 28.1 mmol/L (21.0-32.0) 07/10/20 06:20 Anion Gap 7.9 mmol/L (3-11) 07/10/20 06:20 BUN 34 mg/dL (7-18) H 07/10/20 06:20 Creatinine 1.13 mg/dL (0.55-1.02) H 07/11/20 14:55 Estimated GFR/1.73 m2 46.82 (mL/min/1.73m2) 07/11/20 14:55 Glucose 129 mg/dL (74-106) H 07/10/20 06:20 Calcium 9.0 mg/dL (8.5-10.1) 07/10/20 06:20 Magnesium 2.2 mg/dL (1.8-2.4) 07/10/20 06:20 Total Bilirubin 0.2 mg/dL (0.2-1.0) 07/08/20 10:34 Conjugated Bilirubin 0.10 mg/dL (0.00-0.20) 07/08/20 10:34 AST 10 U/L (15-37) L 07/08/20 10:34 ALT 6 U/L (14-59) L 07/08/20 10:34 Alkaline Phosphatase 111 U/L (46-116) 07/08/20 10:34 Ammonia < 10 umol/L (11-32) L 07/08/20 10:34 C-Reactive Protein 3.79 mg/dL (0.0-0.3) H 07/11/20 14:55 Total Protein 6.8 g/dL (6.4-8.2) 07/08/20 10:34 Albumin 2.8 g/dL (3.4-5.0) L 07/08/20 10:34 25-OH Vitamin D Total 11.7 ng/ml (30-100) L 07/03/20 06:25 Procalcitonin 0.1 ng/mL 07/05/20 06:45 TSH 4.53 uIU/mL (0.36-3.74) H 07/03/20 06:25 Free T4 1.01 ng/dL (0.76-1.46) 07/03/20 06:25 Urine Color Yellow (Yellow) 07/08/20 10:54 Urine Clarity Cloudy (Clear) 07/08/20 10:54 Urine pH 5.5 (5-8) 07/08/20 10:54 Ur Specific [place] 1.015 (1.005-1.025) 07/08/20 10:54 Urine Protein Trace mg/dL (Negative) H 07/08/20 10:54 Urine Ketones Negative mg/dL (Negative) 07/08/20 10:54 Urine Blood Trace-intact (Negative) H 07/08/20 10:54 Urine Nitrite Negative (Negative) 07/08/20 10:54 Urine Bilirubin Negative (Negative) 07/08/20 10:54 Urine Urobilinogen 0.2 EU/dL (Up TO 0.2) 07/08/20 10:54 Ur Leukocyte Esterase Large (Negative) H 07/08/20 10:54 Urine RBC 0-2 HPF (0-2) 07/08/20 10:54 Urine WBC >50 HPF (0-5) H 07/08/20 10:54 Ur Epithelial Cells Few HPF (Negative) 07/08/20 10:54 Urine Crystals Negative HPF (Negative) 07/08/20 10:54 Urine Bacteria Many HPF (Negative) 07/08/20 10:54 Urine Casts Negative LPF (Negative) 07/08/20 10:54 Urine Mucus Negative (Negative) 07/08/20 10:54 Ur Culture Indicated? Yes 07/08/20 10:54 Urine Glucose Negative mg/dL (Negative) 07/08/20 10:54 Vancomycin Trough 16.0 ug/mL (10.0-20.0) 07/11/20 14:55 Digoxin 0.62 ng/mL (0.90-2.00) L 07/08/20 10:34
[2020-07-14 10:49] LABS: HCT 26.9 % (36.0-46.0); HGB 8.4 g/dL (11.2-15.7); MCH 29.9 pg (27.0-33.0); MCHC 31.2 % (32.0-36.0); MCV 95.7 fL (80-95); MPV 9.3 fL (8.0-11.0); Platelet Count 239 10^3/uL (130-400); RBC 2.81 10^6/uL (3.93-5.22); RDW 17.8 % (11.7-14.6); RDW-SD 60.3 fL; WBC 6.82 10^3/uL (4.4-10.8)
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
[2020-07-14 11:01] LABS: C-Reactive Protein 6.45 mg/dL (0.0-0.3)
--- NOTE | 2020-07-14 11:21 | OTDS_ITS ---
Date of service: 07/14/20 Time of Service: 11:22 Occupational Therapy Notes Occupational Therapy Inpatient Discharge Summary Date: 07/14/20 Dates of Service: 07/06/20-07/14/20 Referring Doctor:Beth Fulton NP OT Orders: Non-Urgent Precautions: Fall, standard, FULL This document serves as a summary of care and reflection of patient's progress noted in progress note from today (07/14/20), no skilled OT services were provided for this discharge summary PATIENT PROFILE/ADMITTING DIAGNOSIS: Pt is a 75 year female who has transitioned to [facility] for [place] bed 1 rehabilitative care for a dx of MSSA and (R) AKA, CHF, Chronic anemia, DM II, A-fib, PAD and a chief c/o infection and s/p amputation. Past Medical History- Medical History Abnormal auditory perception (Inactive 10/25/13) Abnormal auditory perception (Inactive 11/06/15) Acute on chronic anemia (Acute) Atrial fibrillation (Chronic) CHF (congestive heart failure) (Chronic) Diabetes mellitus type 2 in nonobese (Acute) MSSA bacteremia (Acute) Obesity with body mass index 30 or greater (Inactive 10/25/13) Obstructive sleep apnea (adult) (pediatric) (Inactive 10/25/13) PAD (peripheral artery disease) (Acute) Pulmonary edema (Resolved) Sensorineural hearing loss, bilateral (Resolved 11/06/15) Sensorineural hearing loss, bilateral (Inactive 10/11/13) Sensory hearing loss, bilateral (Inactive 10/25/13) Surgical History Above knee amputation of right lower extremity (Acute ~05/2020) Social History/Home Situation: Pt has been residing at [facility] since May. She states that she gets (A) with dressing, bathing and grooming. She performs her bathing sitting in a chair with max (A) set up and clean up. She has all DME mets at her facility. She uses a FWW for functional mobility as well as transfers prior to (R) AKA. She has two daughters. She does not feel that returning to her apartment in [place] is a realistic goal and states this to OT at start of session. Equipment owned/DME: Resides at [facility] since May all DME met at [facility] SUBJECTIVE: NT OBJECTIVE: ROM: RUE AROM WFL L UE AROM WFL STRENGTH: RUE 4/5 throughout globally LUE 4/5 throughout globally *Pt is (R) hand dominant. FUNCTIONAL MOBILITY/ADLS: Transfers with marlene lift BATHING Sitting in bed with max (A) set up and clean up with mod vc and tactile cues for holding washcloth Bathing UE (I) washing face, mod (A) washing (B) UE, min (A) abdomen, max (A) hair Bathing LE Mod vc for bending leg towards body and pt was able to wash to mid calf with min (A) and then states that this is as far as she can go. DRESSING Sitting in bed Dressing UE (I) don and doffing hospital gown but requires min vc Dressing LE (I) able to don and doff (L) sock and shoe with increased performance time and mod vc for bending knee towards body. GROOMING Sitting in bed while brushing hair with min (A), with max (A) set up/clean up (I) with brushing teeth TOILETING Max (A) toileting hygiene and pt is incontinent in disposable underwear, pt is working with PT on slide board transfers which goal is to improve her functional (I) to the commode. EATING Sitting in bed, pt is (I) with food to mouth translation and chewing/swallowing of food. BALANCE: Static sitting Good Dynamic Sitting Good Static Standing Poor Dynamic Standing Poor ASSESSMENT: Patient is a 75-year-old female referred to occupational therapy services with diagnosis of MSSA, (R) AKA and is admitted to [facility] for SWB 1 level of care. Pt has been seen over the past two weeks for skilled Occupational Therapy services. She is able to make small progressions. Her pain has been better managed which has helped with her functional (I) in her ADL/IADL routines. She is able to roll for bed mobility (I) but requires vc and is a marlene lift transfer at this time for functional mobility. OT and pt discuss goal of working towards utilizing her commode which she feels would be helpful. She can bend her (L) LE up with vc but sometimes states that she cannot due to pain. Pt is being discharged to return to [facility] at this time. OT will discharge pt from skilled OT services at this time. GOALS 1. Transfers with Min (A) to sitting position on side of the bed- not met but progressing towards 2. Dressing sitting on side of the bed (I) don and doffing hospital gown, min (A) don and doffing sock- met 3. Bathing sitting on side of bed (I) with face, (B) UE and abdomen, (I) for (L) LE to mid calf, min (A) foot- progressing towards 4. Toileting on commode with mod (A)- not met PLAN OF CARE/TREATMENT PLAN: Discharge from skilled OT services. DISCHARGE RECOMMENDATIONS Return to [facility] when medically cleared per MD. TREATMENT TIME/MINUTES/CODES N/A [facility]
[2020-07-14] MEDS: diphenhydrAMINE 25 MG CAP PO (11:45)
--- NOTE | 2020-07-14 12:09 | CMDISCH_ITS ---
- If Service Date Differs Date of service: 07/14/20 Time of Service: 12:09 LACE Index Scoring Tool - Questions: Length of Stay (in days): 14 or more Acuity (Admit via E.D.?): No Comorbidities: Congestive Heart Failure E.D. Visits: 0 - Answers: Total Score: 9 Risk of Readmission: Low Risk Care Management Discharge Reason for Hospitalization: IV abx MSSA infection Discharge Plan: Sunshine will return to [facility] in [place], which is where she currently resides. She will follow up with [facility] on 07/20/20, which will be coordinated by [facility]. She transported via [facility]. She is agreeable to return to [facility]. Patient/Family Education Needs: Review discharge instructions and follow up with [facility] and [facility] staff, discussion of goals of care. Services Needed at Discharge: Longterm Facility ([facility])
[2020-07-15 22:46] LABS: COVID-19 RT-PCR Result NEGATIVE (Negative)
== END 2020-07-14 11:50 | disposition other institution (70) | DRG 872 ==
PROVIDERS: Internal Medicine; Nurse Practitioner; Nurse Practitioner Acute Care; Nurse Practitioner Family; Admitting Provider Internal Medicine; PCP Nurse Practitioner Family; Visit Provider Internal Medicine
DX: R78.81 Bacteremia (principal); I48.20 Chronic atrial fibrillation, unspecified; L97.528 Non-pressure chronic ulcer of other part of left foot with other specified severity; G93.40 Encephalopathy, unspecified; N39.0 Urinary tract infection, site not specified; L03.116 Cellulitis of left lower limb; Z89.611 Acquired absence of right leg above knee; B95.61 Methicillin susceptible Staphylococcus aureus infection as the cause of diseases classified elsewhere; I50.9 Heart failure, unspecified; D64.9 Anemia, unspecified; Z79.01 Long term (current) use of anticoagulants; I73.9 Peripheral vascular disease, unspecified; J44.9 Chronic obstructive pulmonary disease, unspecified; F32.9 Major depressive disorder, single episode, unspecified; Z66 Do not resuscitate; Z86.73 Personal history of transient ischemic attack (TIA), and cerebral infarction without residual deficits; G47.33 Obstructive sleep apnea (adult) (pediatric); Z87.891 Personal history of nicotine dependence; E11.621 Type 2 diabetes mellitus with foot ulcer; L13.9 Bullous disorder, unspecified; B96.89 Other specified bacterial agents as the cause of diseases classified elsewhere; I10 Essential (primary) hypertension; Z11.59 Encounter for screening for other viral diseases
CPT/HCPCS: 11104; 36415; 71045; 80048; 80053; 80076; 82306; 82805; 84145; 85027; 87040; 87077; 94640; 97110; 97163; 97167; 97530; 97535; 99232; 99233; 99239; 99255; 99305; 99306; 99307; 99309; 99310; 99316; NC; U0003; 73660; 73720; 80162; 80202; 81003; 81015; 82140; 82565; 83735; 84439; 84443; 85025; 86140; 87070; 87086; 87186; 87205; 88305; A0425; A0428; J0690; J0696; J2997; J3480; J3490